=== PATIENT | male | born 1940 | race Caucasian/White ===

== ENCOUNTER 2018-11-11 11:55 | Day surgery (SDC) | payer MEDICARE, OTHER, SELFPAY ==
[2018-11-11] VITALS (7 sets, daily range): BP systolic 109–124; BP diastolic 59–69; PULSE 60–73; RESP 13–20; TEMP 36.2–36.9; O2SAT 97–100; BMI 21.7
[2018-11-11] MEDS: SODIUM CHLORIDE 0.9% 1,000 ML 42 ML IV (13:10)
--- NOTE | 2018-11-11 13:11 | PM.PREOP ---
Pre-operative Note Interval Note History & Physical reviewed/Exam performed by Physician: Yes Changes to H&P: No ASA Class (for procedural sedation): II
--- NOTE | 2018-11-11 13:12 | PM.OP.ENDO ---
Operative Date/Time/Diagnoses Date of procedure: 11/11/18 Time of procedure: 13:12 Pre-op diagnosis: See indication and findings Procedure & Clinicians Indications: Colorectal cancer screening but would need to get through a possible anastomotic stricture. History of colon cancer Surgeon: Jessica Qureshi Procedure Notes Procedure in detail: After informed consent was obtained the patient was placed in left lateral decubitus position. The video colonoscope was introduced into the rectum slowly advanced to the cecum. For details see below. On slow withdrawal mucosa was carefully examined. Preparation was good. The scope was removed. The patient tolerated the procedure well. Blood loss none Complications none Sedation Total sedation time 34 min Versed 5 mg fentanyl 100 mcg IV titration Findings 1. Relative stenosis of the internal anal sphincter dilated digitally and able to pass colonoscope 2. Minimal wesley rectum. There is some difficult angles coming out of the anal canal which was angled forward. One need to then turn posteriorly towards the sacrum and then angle forward again to get through the anastomosis. The anastomosis was mildly strictured. There is no way to get a good angle to either get through with the colonoscope or even passed a balloon over a guidewire. T the adult colonoscope was then removed and the upper endoscope was passed and able to get through the tightly angled and slightly strictured anastomosis. I was then able to pass the upper scope to the hepatic flexure but no further as I was already at the hilt the colonoscope of the scope. 3. No polyp seen throughout the examined colon. Right colon not seen 4. Area of anastomosis dilated from 18 to 10 cm. This was done using a 12-15 mm balloon through the scope. None of the areas that were dilated felt particularly tight with the exception of the most distal area of the anastomosis which was only mildly tight and did not completely let the balloon moved within the lumen. More importantly this area was very tight Alyse angled and this is what capped from advancing the scope. I really do not have too much more to offer Mr. Espinoza endoscopically at this point. We will have to have a nathaly discussion about bowel regimen and trying to keep him hard enough that he does not have incontinence but loose enough that he does not have an obstruction. We will make a return visit with me in the near future in [place] this.
[2018-11-11] MEDS: fentaNYL 250 MCG/5 ML INJ IV (14:19)
[2018-11-11] MEDS: MIDAZOLAM 5 MG/5 ML VIAL IV (14:21)
== END 2018-11-11 15:08 ==
LOC: ENDO 12:02
PROVIDERS: Visit Provider Internal Medicine Gastroenterology
PROC: 0DJD8ZZ Inspection of Lower Intestinal Tract, Via Natural or Artificial Opening Endoscopic (ICD-10-PCS; CPT 45378; principal; 2018-11-11 13:00)
DX: Z85.038 Personal history of other malignant neoplasm of large intestine (principal); K62.4 Stenosis of anus and rectum; R15.9 Full incontinence of feces; E53.8 Deficiency of other specified B group vitamins; G62.9 Polyneuropathy, unspecified; R35.0 Frequency of micturition
CPT/HCPCS: 45386; J2250; J3010

== ENCOUNTER → 2019-05-25 13:09 | Outpatient (CLI) | payer MEDICARE, OTHER, SELFPAY ==
--- NOTE | 2019-05-25 | DI.RAD.S_ITS ---
PROCEDURE: FL BARIUM SWALLOW W SPEECH INDICATIONS: Dysphagia, unspecified TECHNIQUE: Examination was conducted in conjunction with speech pathology per standard protocol. In the lateral projection, filming was performed of the patient swallowing. AP projection filming may also be performed with patient swallowing. COMPARISON: [facility], CT, THORAX WITHOUT CONTRAST, 07/02/2017, 13:15. FINDINGS: Function: There is vallecular pooling. Mild laryngotracheal penetration and aspiration were elicited during examination. No spontaneous cough reflex. Morphology: No cricopharyngeal bar is identified. No cervical esophageal webs. No Zenker's diverticulum. No strictures. IMPRESSION: Mild laryngeal penetration and aspiration. Please see separate speech pathologist's report for detail. Dictated by: Mt Britton M.D. on 05/25/2019 at 15:48 Approved by: Mt Britton M.D. on 05/25/2019 at 15:49
--- NOTE | 2019-05-26 18:42 | ST.SWALLOW ---
Care Team Visit Care Team Role Provider Type Damian Tipton MD Attending Provider Non-Staff Primary Care Provider Specialty: Internal Medicine Address: [address] [place] [address], [place], [address] Email: Modified Barium Swallow Study LIME SLUDGE MIXER Modified Barium Swallow Study Start: 05/25/19 15:59 Freq: Status: Active Protocol: Document 05/25/19 17:49 FERNANDO (Rec: 05/26/19 18:37 [email or web address] [id number]) Modified Barium Swallow Study Total Time Visit Start Time 13:30 Visit Stop Time 14:20 Total Visit Minutes [address] Damian Tipton Reason for Referral Dysphagia Setting Setting Outpatient Care Patient Information Identification Type Name ID Card Patient History Pt is a 78-yr-old male with complaints of frequent (~1x/wk ) sensation of a spasm at his larynx during oral intake and sticking sensation when taking pills. The pt stated he is usually able to manage the laryngospasm by relaxing, after which the spasm clears in 3-4 min. During episodes, however, he finds it difficult to breathe and unable to swallow food. He described an episode this week in which he thought he was going to vomit and did expel clear fluid, which was viscous and bubbly. MBSS was ordered for assessment of swallow function and safety. Per pt report, PMHx significant for pernicious anemia (2014) and colon cancer (1993). Subjective Observations The pt arrived on time and provided case history. He was a thorough historian and fully participatory throughout the evaluation. Patient Positioning Position View Lat-A/P Imaging Lateral View Textures Administered Trials Presented Thin Liquid via Spoon Thin Liquid via Cup [place] Liquid via Spoon [place] Liquid via Cup Honey Liquid via Spoon Dysphagia Blenderized Textures Regular Textures Oral Phase Source: MBSIMP (TM) (C) Bolus Specific Scoring Grid Lip Closure No Impairment (WNL) Tongue Control During Bolus Hold WFL Bolus Prep/Mastication No Impairment (WNL) Bolus Transport/Lingual Motion No Impairment (WNL) A/P Lingual Propulsion Delay No Oral Residue WFL Residue Clearing WFL Nasal Regurgitation No Additional Oral Phase Observations Oral Peripheral Exam: WNL. Pt has natural dentition in good condition for age. All structures were symmetrical and WNl of strength, coordination and ROM. Oral Phase: WNL. Adequate bolus hold, mastication, and a /p transport. Mildly delayed swallow trigger with solids to level of vallecula, not significantly abnormal for age . Pharyngeal Phase Source: MBSIMP (TM) (C) Bolus Specific Scoring Grid Delayed Initiation of Pharyngeal Swallow Yes: To vallecula with solids. WFL with liquids. Soft Palate Elevation No Impairment (WNL) Tongue Base Strength/Range of Motion WFL Residue Along the Tongue Base Yes Clearance of Residue Along Tongue Base WFL Laryngeal Elevation Mild Impairment Anterior Hyoid Movement Severe Impairment Epiglottic Range of Motion Severe Impairment Vallecular Residue Yes Clearance of Vallecular Residue Severe Impairment Laryngeal Vestibular Closure Mild Impairment Pharyngeal Stripping Wave Minimal Impairment Posterior Pharyngeal Wall Residue No Upper Esophageal Sphincter Opening Moderate Impairment Residue in the Pyriform Sinuses Yes Clearance of Residue in the Pyriform Mild Impairment Sinuses Esophageal Clearance Upright Position WFL Pharyngoesophageal Backflow Observed No Additional Pharyngeal Phase Observations Minimal anterior excursion of hyoid resulted in incomplete epiglottic inversion and collection of residue of all substances in the vallecula, including barium tablet. Incomplete UES opening, likely secondary to minimal hyolaryngeal excursion, also contributed to pharyngeal residue. During swallow, the epiglottis initiated inversion but made contact with pharyngeal wall, preventing complete inversion. Residue in vallecula then spilled laterally and, along with residue at pyriform sinuses, entered into the laryngeal vestibule while airway was open and during dry swallows used to attempt to clear this residue. These attempts were largely unsuccessful, with one exception, but did result in penetration and trace aspiration of residue, all of which were silent in nature. Penetration and trace aspiration was also observed during consecutive swallows of thin liquid. Again, no cough response was elicited from the pt. When instructed by LIME SLUDGE MIXER to cough, however, the pt's cough was frequently strong enough to clear residue within the larynx and the proximal trachea. During A/P viewing, a 13mm barium tablet collected in the vallecula and did not clear with extensive liquid wash or with coughing. A/P View Textures Administered Trials Presented Barium Tablet A/P View Observations Residue Observed Valleculae Right Clinical Impressions Dysphagia Type Moderate Pharyngeal Dysphagia Findings Moderate Pharyngeal Dysphagia secondary to impaired hyolaryngeal anterior excursion, resulting in significant pooling of all substances, including 13mm tablet, at vallecula and reduced airway closure. Penetration and trace aspiration, all silent in nature, were observed during consecutive swallows of thin liquid and with pharyngeal residue, both after initial swallows and during dry swallow attempts to clear the vallecula. Multiple attempts at dry swallows were unsuccessful in clearing residue, with exception of one attempt, which cleared the vallecula completely. Once the vallecula was cleared, a 13 mm barium tablet was administered, lodged in vallecula, and did not clear over the remainder of the study. During episodes of penetration and aspiration, the pt was instructed by the LIME SLUDGE MIXER to cough , and his cough was strong enough to clear residue in larynx and proximal trachea. Rehabilitation Potential Good Patient Appropriate for Therapy Yes Recommendations Diet Liquids Order Thin Diet Order Regular Medication Recommendation Crushed in Carrier Aspiration Precautions Recommended Precautions Upright at 90 Degrees Supersupraglottic Swallow Treatment Plan Therapy Recommendations Outpatient Speech Therapy Other Additional Therapy Recommendations Exercises to increase hyolaryngeal elevation/ excursion Compensatory Strategies Recommendations Sitting Upright (90 deg) Supersupraglottic Swallow Short Term Goals 1. The pt will perform exercises to increase hyolaryngeal elevation and anterior excursion to improve epiglottic inversion, airway closure, and opening of UES. 2. The pt will employ compensatory swallow strategies to reduce risk of aspiration. Snf Goals 1. The pt will tolerate regular texture and thin liquids without s/sx of aspiration. Additional Recommendations/Comments Anticipate administration of follow-up MBSS after course of treatment for thorough evaluation and to r/o silent aspiration. Laryngospasm to be addressed in tx, as well.
== END ==
PROVIDERS: PCP Internal Medicine; Visit Provider Internal Medicine
DX: R13.10 Dysphagia, unspecified (principal)
CPT/HCPCS: 74230; 92611

== ENCOUNTER 2019-06-22 13:30 | Outpatient (RCR) | payer MEDICARE, OTHER, SELFPAY ==
--- NOTE | 2019-06-01 17:15 | ST.IPCSEOM ---
Care Team Visit Care Team Role Provider Type Damian Tipton MD Attending Provider Non-Staff Primary Care Provider Specialty: Internal Medicine Address: [address] [place] [address], [place], [address] Email: Current Diagnoses Dysphagia, oropharyngeal phase (06/01/19) Speech-Language Pathology Swallow Evaluation IT APPLICATION SUPPORT ANALYST Clinical Swallow Evaluation Start: 06/01/19 16:42 Freq: Status: Active Protocol: Document 06/01/19 16:48 LNK (Rec: 06/01/19 17:14 LNK [id number]) Clinical Swallow Evaluation Session Time Visit Start Time 14:30 Visit Stop Time 15:30 Total Visit Minutes 60 Visit Information Visit Number 1 Plan of Care Dates 06/01/19-09/01/19 Insurance Information medicare/ for Life Referral Referring Physician Dr. Damian Tipton Reason for Referral aspiration Setting Assessment Location Outpatient Care Visit Type Note Type Initial Evaluation Next Note Type Next Note Type Treatment Note Patient Information Identification Type Name Other History Pt is a 78-yr-old male with complaints of frequent (~1x/wk ) sensation of a spasm at his larynx during oral intake and sticking sensation when taking pills. The pt stated he is usually able to manage the laryngospasm by relaxing, after which the spasm clears in 3-4 min. During episodes, however, he finds it difficult to breathe and unable to swallow food. The results of an MBS was conducted on 05/25/19 indicated Moderate Pharyngeal Dysphagia secondary to impaired hyolaryngeal anterior excursion, resulting in significant pooling of all substances, including 13mm tablet, at vallecula and reduced airway closure. Penetration and trace aspiration, all silent in nature, were observed during consecutive swallows of thin liquid and with pharyngeal residue, both after initial swallows and during dry swallow attempts to clear the vallecula. Subjective Observations pt arrived for appointment on time Evaluation Pharyngeal Impairment Moderately Impaired Pharyngeal Strategies Effortful Swallow Mendelsonn Maneuver Findings Rehabilitation Potential Excellent Impressions The pt and this IT APPLICATION SUPPORT ANALYST reviewed the video of his MBS and discussed the areas of concern . Noted specifically is the reduced laryngeal protection as a result of no inversion of the epiglottis.. Additionally, reduced contraction of the pharyngeal wall and lack of pharyngeal stripping are noted, limiting control of the bolus. Trace penetration and aspiration moments were shown to the pt with noting the position of the epiglottis relative to poor forward movement of the hyoid bone. Pharyngeal exercises were described and provided to the pt. Written instructions and demonstration of three exercises were provided, with pt performance of each with all questions answered. A follow up appointment in 3 weeks was discussed and scheduled. the exercises included the Mussako , the Chay and the strong sucking exercise (i.e., milk shake drink). Diet Recommendations Liquids Order Thin Diet Order Regular Medication Recommendations Whole in Carrier Crushed in Carrier One at a Time Treatment Plan Dysphagia Goals The pt will complete HEP as described daily. 50-100 repetitions of each exercise will be performed. the goal of therapy exercises is to improve hyolaryngeal elevation and forward motion, improve the posterior pharyngeal wall contraction and to increase strength of hyolaryngeal muscles.
--- NOTE | 2019-06-22 14:25 | ST.IPDYTX ---
Care Team Visit Care Team Role Provider Type Damian Tipton MD Attending Provider Non-Staff Primary Care Provider Specialty: Internal Medicine Address: [address] [place] [address], [place], [address] Email: INVESTMENT ACCOUNTING CLERK Dysphagia Treatment INVESTMENT ACCOUNTING CLERK Dysphagia Treatment Start: 06/01/19 16:42 Freq: Status: Active Protocol: Document 06/22/19 14:12 LNK (Rec: 06/22/19 14:24 LNK [email or web address]) Dysphagia Treatment Session Time Visit Start Time 13:30 Visit Stop Time 14:10 Total Visit Minutes 40 Visit Information Visit Number 2 Plan of Care Dates 06/01/19-09/01/19 Insurance Information medicare/ for Life Visit Type Note Type Treatment Note Patient Information Subjective Observations Pt arrived on time for his appointment. He reported hat he feels his swallowing has improved. He noted that he rarely has difficulty with swallowing pills and he has not experienced the throat spasm he reported prior to therapy. Treatment Liquids Trialed Thin Solids Trialed Regular Administration Type Self-Feeding Additional Dysphagia Treatment Musako, Mendelsohnn exercises Strategies daily with multiple repetitions (50-100/ Treatment Activities Reviewed with the pt the exercises he has been performing at home. He reports multiple repetitions, and positive outcome: no observed throat spasms, and rarely do pills get stuck any more. Introduced Shaker exercise to replace the Mendelsohnn for laryngeal elevation and strengthening. pt practiced the exercise in completion during the session and was provided with written description and detailed instructions. Pt agreed to return to this clinic in 4 weeks for follow-up. Assessment Patient Response to Treatment Excellent Rehab Potential Excellent Diet Recommendations Recommendations Continue Current Diet Treatment Plan Appropriate for Continued Therapy Yes: Follow up 1x more Therapy Recommendations Continue POC with Musako and Shaker exercises as instructed daily. Dysphagia Goals The pt will complete HEP as described daily. Repetitions of each exercise will be performed as instructed. The goal of therapy exercises is to improve hyolaryngeal elevation and forward motion, improve the posterior pharyngeal wall contraction and to increase strength of hyolaryngeal muscles.
--- NOTE | 2019-08-16 10:26 | ST.IPDYTX ---
Visit Care Team Role Provider Type Damian Tipton MD Attending Provider Non-Staff Primary Care Provider Specialty: Internal Medicine Address: [address] [place] [address], [place], [address] Email: SOFTWARE CONTROLS ENGINEER Dysphagia Treatment SOFTWARE CONTROLS ENGINEER Dysphagia Treatment Start: 06/01/19 16:42 Freq: Status: Active Protocol: Document 08/16/19 10:21 LNK (Rec: 08/16/19 10:23 LNK [email or web address]) Dysphagia Treatment Visit Type Note Type Discharge Summary Treatment Treatment Activities Pt was last seen for dysphagia therapy on 06/22/19. He has no futrre appointments. Will discharge pt at this time. Treatment Plan Appropriate for Continued Therapy No: Discharge
== END 2019-08-25 16:34 ==
LOC: SP 13:30
PROVIDERS: PCP Internal Medicine; Visit Provider Internal Medicine
DX: R13.12 Dysphagia, oropharyngeal phase (principal)
CPT/HCPCS: 92526; 92610

== ENCOUNTER 2019-07-20 14:41 | Inpatient (IN) | payer MEDICARE, OTHER, SELFPAY ==
[2019-07-20 14:42] VITALS: BP 111/69; PULSE 113; RESP 15; TEMP 37.5; O2SAT 95; BMI 20.7
--- NOTE | 2019-07-20 14:56 | ED_ITS ---
HPI - Nausea/Vomiting/Diarrhea General Chief complaint: Nausea/Vomiting/Diarrhea Stated complaint: BLOCKED UP VOMITING Time Seen by Provider: 07/20/19 14:50 Source: patient Mode of arrival: Wheelchair Limitations: no limitations History of Present Illness HPI Narrative: Patient is a 78-year-old male with history of colon cancer is in the , presenting with 5 days of nausea and vomiting. He says that he tries to drink some fluid it does not actually come up but caught him intense pain in his stomach. He feels dizzy and lightheaded every time he stands up. He denies any syncopal episode no heart palpitations. He currently is not having abdominal pain. He had his 1st formed normal bowel movement in 5 days. He has had some mucousy like stuff for the last 5 days but no significant diarrhea. He denies any travel or antibiotic use. He denies any chest pain or shortness of breath. MD complaint: nausea, vomiting and abdominal pain Onset (ago): day(s) (5) Description of Diarrhea: mucousy Associated Abdominal Pain: Yes Location of pain: diffuse Severity: moderate Quality: cramping Pain Consistency: now resolved Related Data Home Medications Medication Instructions Recorded Confirmed mirabegron [Myrbetriq] 50 mg PO DAILY 11/11/18 07/20/19 tamsulosin 0.4 mg PO DAILY 11/11/18 07/20/19 cyanocobalamin (vitamin B-12) 1,000 mcg IM QMONTH 07/20/19 07/20/19 Allergies Allergy/AdvReac Type Severity Reaction Status Date / Time No Known Drug Allergies Allergy Verified 07/20/19 14:49 Review of Systems Review of Systems ROS Unobtainable: All systems reviewed & are unremarkable except as noted in HPI and below PFSH Social History household members: spouse Smoking Status: Unknown if ever smoked Social History household members: spouse Smoking Status: Unknown if ever smoked Exam Initial Vital Signs Initial Vital Signs: Vital Signs Temperature 99.5 F 07/20/19 14:42 Pulse Rate 113 H 07/20/19 14:42 Respiratory Rate 15 07/20/19 14:42 Blood Pressure 111/69 07/20/19 14:42 Pulse Oximetry 95 07/20/19 14:42 GENERAL: Thin frail chronically ill-appearing male and in no acute distress. HEENT: Head atraumatic,EOMI, pupils reactive, face symmetric, significantly dry mucous membranes CARDIOVASCULAR: Regular rate and rhythm without murmurs, rubs or gallops. RESPIRATORY: Breath sounds equal bilaterally, no wheezes rales or rhonchi. ABDOMEN: Soft, minimally tender no significant distension is no guarding or rebound EXTREMITIES: Normal range of motion, no clubbing or edema. Neurovascularly intact NEUROLOGICAL: Alert and oriented x4.Normal gait and speech. SKIN: Warm, dry, no laceration, no petechiae, no rashes or lesions. Course Orders Ordered: ED Orders 07/20/19 14:50 CBC Auto Diff [Complete Blood Count AUTO DIFF] Stat CMP [Comprehensive Metabolic Panel] Stat Lipase Stat 07/20/19 15:08 CT abdomen pelvis w con Stat 07/20/19 15:25 Lactate (Lactic Acid) Stat 07/20/19 15:45 EKG-12 Lead Stat Discontinued Medications Sodium Chloride (Normal Saline 0.9%) 1,000 mls @ 1,000 mls/hr IV BOLUS ONE Stop: 07/20/19 16:14 Last Infusion: 07/20/19 18:09 Dose: 0 mls/hr Documented by: Admin: 07/20/19 15:19 Dose: 1,000 mls/hr Documented by: CHELY Sodium Chloride (Normal Saline 0.9%) 1,000 mls @ 1,000 mls/hr IV BOLUS ONE Stop: 07/20/19 16:14 Last Infusion: 07/20/19 18:10 Dose: 0 mls/hr Documented by: Admin: 07/20/19 15:19 Dose: 1,000 mls/hr Documented by: CHELY Ondansetron HCl (Zofran) 4 mg IV NOW ONE Stop: 07/20/19 15:09 Last Admin: 07/20/19 15:19 Dose: 4 mg Documented by: CHELY Pantoprazole Sodium (Protonix) 40 mg IV NOW ONE Stop: 07/20/19 15:09 Last Admin: 07/20/19 15:19 Dose: 40 mg Documented by: CHELY Vital Signs Vital signs: Vital Signs - 8 hr 07/20/19 14:42 07/20/19 16:33 07/20/19 17:00 Temperature 99.5 F Pulse Rate 113 H 86 88 Respiratory Rate 15 22 22 Blood Pressure 111/69 Blood Pressure [Left Arm] 126/52 L 116/60 Pulse Oximetry 95 95 97 MDM - Nausea/Vomiting/Diarrhea Lab Data Attestation: I reviewed the patient's lab results. Result diagrams: 07/20/19 14:50 07/20/19 14:50 Labs: Lab Results 07/20/19 07/20/19 07/20/19 Range/Units 14:50 14:50 14:50 WBC 9.4 (4.5-11.0) X10^3/uL RBC 4.65 (4.5-5.9) X10^6/uL Hgb 15.1 (13.5-17.5) g/dL Hct 44.8 (41-53) % MCV 96.3 (80-100) fL MCH 32.4 (26-34) PG MCHC 33.7 (30-36) % RDW 13.3 (11.6-14.8) % Plt Count 244 (150-400) X10^3/uL Neut % (Auto) 87.8 H (50-75) % Lymph % (Auto) 6.9 L (25-40) % [place] % (Auto) 4.6 (3-14) % Eos % (Auto) 0.1 L (2-4) % Baso % (Auto) 0.6 (0-2) % Neut # (Auto) 8200 H (3807-9978) /uL Lymph # (Auto) 600 L (0509-2928) /uL [place] # (Auto) 400 (0-900) /uL Eos # (Auto) 0 (0-450) /uL Baso # (Auto) 100 (0-100) /uL Sodium 137 (137-145) mmol/L Potassium 3.7 (3.4-5.1) mmol/L Chloride 93 L (98-107) mmol/L Carbon Dioxide 25 (22-32) mmol/L BUN 32 H (9-20) mg/dL Creatinine 1.20 (0.66-1.25) mg/dL Estimated GFR 58.4 L (>60) mL/min BUN/Creatinine Ratio 26.7 H (6-22) Glucose 106 (80-110) mg/dL Lactate (0.7-2.1) mmol/L Calcium 9.7 (8.4-10.2) mg/dL Total Bilirubin 1.7 H (0.2-1.3) mg/dL AST 29 (17-59) IU/L ALT 20 L (21-72) IU/L Alkaline Phosphatase 66 (38-126) U/L Total Protein 7.1 (6.3-8.2) g/dL Albumin 4.3 (3.5-5.0) g/dL Globulin 2.8 (1.7-4.1) g/dL Albumin/Globulin Ratio 1.5 (1.0-2.8) Lipase 47 (23-300) U/L 07/20/19 Range/Units 15:25 WBC (4.5-11.0) X10^3/uL RBC (4.5-5.9) X10^6/uL Hgb (13.5-17.5) g/dL Hct (41-53) % MCV (80-100) fL MCH (26-34) PG MCHC (30-36) % RDW (11.6-14.8) % Plt Count (150-400) X10^3/uL Neut % (Auto) (50-75) % Lymph % (Auto) (25-40) % [place] % (Auto) (3-14) % Eos % (Auto) (2-4) % Baso % (Auto) (0-2) % Neut # (Auto) (7324-6280) /uL Lymph # (Auto) (5324-6255) /uL [place] # (Auto) (0-900) /uL Eos # (Auto) (0-450) /uL Baso # (Auto) (0-100) /uL Sodium (137-145) mmol/L Potassium (3.4-5.1) mmol/L Chloride (98-107) mmol/L Carbon Dioxide (22-32) mmol/L BUN (9-20) mg/dL Creatinine (0.66-1.25) mg/dL Estimated GFR (>60) mL/min BUN/Creatinine Ratio (6-22) Glucose (80-110) mg/dL Lactate 1.1 (0.7-2.1) mmol/L Calcium (8.4-10.2) mg/dL Total Bilirubin (0.2-1.3) mg/dL AST (17-59) IU/L ALT (21-72) IU/L Alkaline Phosphatase (38-126) U/L Total Protein (6.3-8.2) g/dL Albumin (3.5-5.0) g/dL Globulin (1.7-4.1) g/dL Albumin/Globulin Ratio (1.0-2.8) Lipase (23-300) U/L Imaging Data CT scan - abdomen: Radiologist's impression: PROCEDURE: CT ABDOMEN PELVIS W CON INDICATIONS: vomiting pain hx colon ca TECHNIQUE: After the administration of oral and intravenous contrast, 5 mm thick sections acquired from the diaphragms to the symphysis. 5 mm thick coronal and sagittal reformats were performed. For radiation dose reduction, the following was used: automated exposure control, adjustment of mA and/or kV according to patient size. COMPARISON: [facility], CT, IVP (ABD & PEL WWO CONTRAST), 06/21/2016, 10:16. FINDINGS: Image quality: Diagnostic. ABDOMEN: Lung bases: Moderate area of consolidation is evident within the left lower lobe. Decreased enhancement of this consolidated lung is noted. Heart size is normal. Solid organs: There is intrahepatic and extrahepatic biliary dilatation. The common bile duct measures up to approximately 8 mm in diameter. The gallbladder is gillian rderline prominent in size. No definite gallbladder wall thickening is evident. No definite liver lesions are appreciated. The portal vein is patent. The spleen is unremarkable. There is a single calcification evident within the left adrenal gland, which is unchanged since 2016, probably related to previous trauma or infection. The kidneys are normal in size without hydronephrosis or renal calculi. Imaged portions of the pancreas are grossly unremarkable. Peritoneum and bowel: The stomach is unremarkable. Numerous dilated small bowel loops are present throughout the abdomen with the more distal small bowel loops noted to be decompressed. A few areas of wall thickening involving the small bowel are present. There is a focal transition point identified within the mid abdomen (image 28, series 4). The small bowel loops beyond this level are significantly decompressed. A moderate to large amount of residual stool is identified throughout the colon. No free fluid, loculated fluid collection or free air is appreciated within the abdomen. A heterogeneous rounded structure containing central air is located within one of the most prominently dilated small bowel loops within the pelvis, which appears to be free-floating and does not appear to be contiguous with the adjacent small bowel wall (image 34, series 5 and image 72, series 2). Nodes and vessels: No retroperitoneal or mesenteric adenopathy. Aorta and inferior vena cava are normal in caliber. Aortic atherosclerosis is present. Bones: No acute fracture or suspicious osseous lesion is present. PELVIS: Genitourinary: Bladder wall thickness is normal. The prostate is not enlarged. Miscellaneous: No inguinal hernias or adenopathy. Bones: No suspicious bony lesions. No acute pelvic fractures are evident. IMPRESSION: 1. Small bowel obstruction with transition point likely within the mid ileum probably is related to adhesions. However, a focal small bowel mass or lesion cannot be completely excluded. 2. Probable constipation. 3. No evidence of bowel perforation. 4. Mild intrahepatic and extrahepatic biliary dilatation. Clinical correlation with liver function tests is recommended. If the patient's LFTs are persistently elevated or increasing, please consider MRCP for further evaluation. 5. Left lower lobe pneumonia versus aspiration. Dictated by: Jacob Fontana M.D. on 07/20/2019 at 15:05 ECG Data Attestation: I personally reviewed and interpreted this ECG as follows: Prior ECG tracings: not available for review Interpretation: Normal sinus rhythm rate 85 p.r. interval 180 QRS [address] changes no T-wave inversions MDM Narrative Medical decision making narrative: Patient's CT does show small bowel obstruction with transition point. NG was attempted by nursing staff but failed multiple times. He did not want Zofran he did not require any pain medication no further vomiting in the emergency department. Dr. Kennedy updated on pain she has symptoms test results agrees with admission. Discharge Plan Departure Patient Disposition: Admitted As Inpatient Clinical Impression: Small bowel obstruction Discharge Date/Time: 07/20/19 18:17 Admit Date/Time: 07/20/19 17:27 Admit Provider: Scooby Kennedy
[2019-07-20 15:03] LABS: Add Manual Diff / Slide Review NO; Basophils Absolute Auto 100 /uL (0-100); Basophils Percent Auto 0.6 % (0-2); Eosinophils Absolute Auto 0 /uL (0-450); Eosinophils Percent Auto 0.1 % (2-4); Hematocrit 44.8 % (41-53); Hemoglobin 15.1 g/dL (13.5-17.5); Lymphocytes Absolute Auto 600 /uL (1100-4500); Lymphocytes Percent Auto 6.9 % (25-40); Mean Corpuscular HGB Conc 33.7 % (30-36); Mean Corpuscular Hemoglobin 32.4 PG (26-34); Mean Corpuscular Volume 96.3 fL (80-100); Monocytes Absolute Auto 400 /uL (0-900); Monocytes Percent Auto 4.6 % (3-14); Neutrophils Absolute Auto 8200 /uL (1500-7000); Neutrophils Percent Auto 87.8 % (50-75); Platelet Count 244 X10^3/uL (150-400); Red Blood Cell Count 4.65 X10^6/uL (4.5-5.9); Red Cell Distribution Width 13.3 % (11.6-14.8); White Blood Cell Count 9.4 X10^3/uL (4.5-11.0)
--- NOTE | 2019-07-20 15:08 | DI.CT.S_ITS ---
PROCEDURE: CT ABDOMEN PELVIS W CON INDICATIONS: vomiting pain hx colon ca TECHNIQUE: After the administration of oral and intravenous contrast, 5 mm thick sections acquired from the diaphragms to the symphysis. 5 mm thick coronal and sagittal reformats were performed. For radiation dose reduction, the following was used: automated exposure control, adjustment of mA and/or kV according to patient size. COMPARISON: [facility], CT, IVP (ABD & PEL WWO CONTRAST), 06/21/2016, 10:16. FINDINGS: Image quality: Diagnostic. ABDOMEN: Lung bases: Moderate area of consolidation is evident within the left lower lobe. Decreased enhancement of this consolidated lung is noted. Heart size is normal. Solid organs: There is intrahepatic and extrahepatic biliary dilatation. The common bile duct measures up to approximately 8 mm in diameter. The gallbladder is borderline prominent in size. No definite gallbladder wall thickening is evident. No definite liver lesions are appreciated. The portal vein is patent. The spleen is unremarkable. There is a single calcification evident within the left adrenal gland, which is unchanged since 2016, probably related to previous trauma or infection. The kidneys are normal in size without hydronephrosis or renal calculi. Imaged portions of the pancreas are grossly unremarkable. Peritoneum and bowel: The stomach is unremarkable. Numerous dilated small bowel loops are present throughout the abdomen with the more distal small bowel loops noted to be decompressed. A few areas of wall thickening involving the small bowel are present. There is a focal transition point identified within the mid abdomen (image 28, series 4). The small bowel loops beyond this level are significantly decompressed. A moderate to large amount of residual stool is identified throughout the colon. No free fluid, loculated fluid collection or free air is appreciated within the abdomen. A heterogeneous rounded structure containing central air is located within one of the most prominently dilated small bowel loops within the pelvis, which appears to be free-floating and does not appear to be contiguous with the adjacent small bowel wall (image 34, series 5 and image 72, series 2). Nodes and vessels: No retroperitoneal or mesenteric adenopathy. Aorta and inferior vena cava are normal in caliber. Aortic atherosclerosis is present. Bones: No acute fracture or suspicious osseous lesion is present. PELVIS: Genitourinary: Bladder wall thickness is normal. The prostate is not enlarged. Miscellaneous: No inguinal hernias or adenopathy. Bones: No suspicious bony lesions. No acute pelvic fractures are evident. IMPRESSION: 1. Small bowel obstruction with transition point likely within the mid ileum probably is related to adhesions. However, a focal small bowel mass or lesion cannot be completely excluded. 2. Probable constipation. 3. No evidence of bowel perforation. 4. Mild intrahepatic and extrahepatic biliary dilatation. Clinical correlation with liver function tests is recommended. If the patient's LFTs are persistently elevated or increasing, please consider MRCP for further evaluation. 5. Left lower lobe pneumonia versus aspiration. Dictated by: Jacob Fontana M.D. on 07/20/2019 at 15:05 Approved by: Jacob Fontana M.D. on 07/20/2019 at 15:11
[2019-07-20 15:11] LABS: Alanine Aminotransferase 20 IU/L (21-72); Albumin 4.3 g/dL (3.5-5.0); Albumin Globulin Ratio 1.5 (1.0-2.8); Alkaline Phosphatase 66 U/L (38-126); Aspartate Aminotransferase 29 IU/L (17-59); BUN Creatinine Ratio 26.7 (6-22); Bilirubin Total 1.7 mg/dL (0.2-1.3); Blood Urea Nitrogen 32 mg/dL (9-20); Calcium 9.7 mg/dL (8.4-10.2); Carbon Dioxide 25 mmol/L (22-32); Chloride 93 mmol/L (98-107); Estimated Glomerular Filt Rate 58.4 mL/min (>60); Globulin 2.8 g/dL (1.7-4.1); Glucose 106 mg/dL (80-110); HEMOLYSIS < 15 (0-50); Potassium 3.7 mmol/L (3.4-5.1); Sodium 137 mmol/L (137-145); Total Protein 7.1 g/dL (6.3-8.2)
[2019-07-20] MEDS: ONDANSETRON 4 MG/2 ML INJ IV (15:19)
[2019-07-20] MEDS: SODIUM CHLORIDE 0.9% 1,000 ML 1000 ML IV ×2 (15:19)
[2019-07-20] MEDS: PANTOPRAZOLE 40 MG VIAL IV (15:19)
[2019-07-20 15:39] LABS: Lipase 47 U/L (23-300)
[2019-07-20 15:42] LABS: Lactate (Lactic Acid) 1.1 mmol/L (0.7-2.1)
[2019-07-20 16:33] VITALS: BP 126/52; PULSE 86; RESP 22; O2SAT 95
[2019-07-20 17:00] VITALS: BP 116/60; PULSE 88; RESP 22; O2SAT 97
--- NOTE | 2019-07-20 18:16 | PC.NURSE ---
ng attempt x 4, dannie well, but ng kept coiling in throat/ md aware not able to place ng
[2019-07-20 18:35] VITALS: BP 98/59; PULSE 84; RESP 14; TEMP 36.2; O2SAT 94; BMI 20.7
[2019-07-20] MEDS: SODIUM CHLORIDE 0.9% 1,000 ML 125 ML IV (19:58)
--- NOTE | 2019-07-20 20:26 | PC.NURSE ---
Addendum entered by Mary Wagner R.N. 07/20/19 23:03: Original Note: 1835-Pt arrived to room 216 from ED via bed. A/O x4, BP-98/59, HR 84, pt reportrs baseline is usually SBP runs in the 100's, pt received 2L NS in ED. RFA NS @ 125 infusing. Pt denies N/V at this time, but had to episodes of vomiting at home prior to coming into ED. Also pt reports having a couple episodes of mucus type diarrhea then small to med formed BM this afternoon, also prior to coming in to ED. NPO status, provided with mouth moisture/lip balm and toothettes. ED tried multiple times with 14-16-and 18fr NGT, but unsuccessful, pt reports not willing to have this nurse try to place NGT at this time, nor night nurse, possible, in morning is must be done. Pt willing to drink gastograf for sbo follow through in morning instead of NGT placement. SBA to BRP to void x1. Pt has ABD scar from surgery r/t colon CA in 1993. Denies any pain or headache. CBG Q-6hr r/t NPO. 94% RA LS clear. Call light in reach and bed alarm on for safety.
[2019-07-20 23:50] VITALS: BP 107/50; PULSE 74; RESP 16; TEMP 37.1; O2SAT 97
[2019-07-21] VITALS (9 sets, daily range): BP systolic 96–121; BP diastolic 49–85; PULSE 67–88; RESP 15–20; TEMP 36.8–37.1; O2SAT 82–98
--- NOTE | 2019-07-21 | DI.RAD.S_ITS ---
PROCEDURE: FL SMALL BOWEL FOLLOW THROUGH INDICATIONS: Small bowel follow through perform with Gastrografin via NGT COMPARISON: [facility], CT, CT ABDOMEN PELVIS W CON, 07/20/2019, 15:23. FINDINGS: Gastrografin was instilled via enteric tube. There is contrast material extending to the lower pelvis although this could be within small bowel rather than colon. Dilated appearance of multiple small bowel loops probably unchanged since comparison CT dated 07/20/19 although limited comparison given differences in imaging modality. Distention of the stomach IMPRESSION: Multiple dilated small bowel loops as above, probably unchanged since 07/20/19. Dictated by: Elver Mccoy M.D. on 07/23/2019 at 10:38 Approved by: Elver Mccoy M.D. on 07/23/2019 at 10:42
--- NOTE | 2019-07-21 00:58 | PC.NURSE ---
Unindentured Apprentice Note: 0040: Awake, resting in bed. Vital signs stable. Pt denies abdominal pain. Abdomen is non-distended, with hypoactive bowel tones. IV in place in rt forearm, with NS infusing at 125cc/hr. Assisted up to bathroom, voided in toilet. Small piece of cui colored material, possibly tissue, found floating in urine hat, no blood or drainage with it. Pt unsure if this passed from his rectum or from his penis.
--- NOTE | 2019-07-21 02:13 | P.HP_ITS ---
History of Present Illness History of Present Illness Date Patient Seen: 07/21/19 Time Patient Seen: 10:10 Chief complaint: BLOCKED UP VOMITING Narrative: A 78-year-old male with a previous low anterior resection for rectal cancer presents with a small-bowel obstruction. He felt abdominal distension associated with some nausea and emesis yesterday and presented to the emergency room. He underwent a CT that shows a small-bowel obstruction with possible transition point in the mid abdomen. And he was afebrile without leukocytosis or peritonitis. Multiple attempts were made to place the NG tube which was unsuccessful. His nausea is significantly improved and he is having some small bowel movements no flatus and has had no episodes of emesis since admission. No previous history of small-bowel obstruction. Surgical history is notable only for low anterior resection through a midline laparotomy. Patient History Medical History Colon cancer (Acute) Social History household members: spouse Smoking Status: Unknown if ever smoked Family & Social History Social History: household members spouse Prior Living Arrangements House Safety & Behavioral: Feels Safe in Current Yes Environment Been Physically Hurt or No Threatened By a Person Suicidal Ideation Description None Suicide Plan Description No Plan Tobacco & Substance use: Smoking Status Unknown if ever smoked alcohol intake frequency holiday/special occasion Substance Use Type does not use Meds Home Medications and Allergies Home Medications Medication Instructions Recorded Confirmed Type mirabegron [Myrbetriq] 50 mg PO DAILY 11/11/18 07/20/19 History tamsulosin 0.4 mg PO DAILY 11/11/18 07/20/19 History cyanocobalamin (vitamin B-12) 1,000 mcg IM QMONTH 07/20/19 07/20/19 History Allergies Allergy/AdvReac Type Severity Reaction Status Date / Time No Known Drug Allergies Allergy Verified 07/20/19 14:49 Review of Systems Review of Systems ROS Unobtainable: All systems reviewed & are unremarkable except as noted in HPI and below Exam Vital Signs (past 8 hours): - 07/20/19 18:35 07/20/19 23:50 Temperature 97.1 F L 98.7 F Pulse Rate 84 74 Respiratory Rate 14 16 Blood Pressure 98/59 L 107/50 L Pulse Oximetry 94 97 Oxygen Delivery Method Room Air Narrative Exam Narrative: General-adult male no acute distress, well nourished HEENT-moist mucous membranes, no scleral icterus Neck-supple with full range of motion, no lymphadenopathy Chest- no labored respirations, clear to auscultation bilaterally Cardiac-regular rate and rhythm Abdomen-soft, mildly distended, no peritonitis Extremities-no edema, warm well perfused Neurological-alert and oriented x 3. No focal deficits Skin-normal temperature and turgor, no rashes or ulcers Objective Labs Result Diagrams: 07/21/19 07:51 07/21/19 07:51 Labs: Laboratory Results - last 24 hr 07/20/19 07/20/19 07/20/19 14:50 14:50 14:50 WBC 9.4 RBC 4.65 Hgb 15.1 Hct 44.8 MCV 96.3 MCH 32.4 MCHC 33.7 RDW 13.3 Plt Count 244 Neut % (Auto) 87.8 H Lymph % (Auto) 6.9 L [place] % (Auto) 4.6 Eos % (Auto) 0.1 L Baso % (Auto) 0.6 Neut # (Auto) 8200 H Lymph # (Auto) 600 L [place] # (Auto) 400 Eos # (Auto) 0 Baso # (Auto) 100 Sodium 137 Potassium 3.7 Chloride 93 L Carbon Dioxide 25 BUN 32 H Creatinine 1.20 Estimated GFR 58.4 L BUN/Creatinine Ratio 26.7 H Glucose 106 Lactate Calcium 9.7 Total Bilirubin 1.7 H AST 29 ALT 20 L Alkaline Phosphatase 66 Total Protein 7.1 Albumin 4.3 Globulin 2.8 Albumin/Globulin Ratio 1.5 Lipase 47 07/20/19 15:25 WBC RBC Hgb Hct MCV MCH MCHC RDW Plt Count Neut % (Auto) Lymph % (Auto) [place] % (Auto) Eos % (Auto) Baso % (Auto) Neut # (Auto) Lymph # (Auto) [place] # (Auto) Eos # (Auto) Baso # (Auto) Sodium Potassium Chloride Carbon Dioxide BUN Creatinine Estimated GFR BUN/Creatinine Ratio Glucose Lactate 1.1 Calcium Total Bilirubin AST ALT Alkaline Phosphatase Total Protein Albumin Globulin Albumin/Globulin Ratio Lipase Assessment & Plan Assessment and plan (1) Small bowel obstruction: Current visit: Yes Status: Acute Assessment & Plan narrative: 78-year-old male with previous colon resection for colonic adenocarcinoma 1990s presents with a small-bowel obstruction. No fever leukocytosis or peritonitis. Multiple attempts to place NGT unsuccessful currently without nausea or emesis since admission having small bowel movements. CT A/P -dilated small bowel with a transition point in the mid abdomen no free fluid or air. Small-bowel follow-through with Gastrografin ordered. If the contrast is unable to transit to the colon an exploratory laparotomy with lysis of adhesions is indicated. I discussed this with the patient his questions have been answered and he is in agreement with this plan -NPO/IVF If emesis needs NGT -SBFT with gastrografin -pLovenox for VTE prophylaxis Quality VTE Deep Vein Thrombosis/Pulmonary Embolism Present on Admission: No
[2019-07-21] MEDS: DEXTROSE 5%-0.9% NS 1,000 ML 100 ML IV ×2 (04:09→13:55)
[2019-07-21 08:10] LABS: Add Manual Diff / Slide Review NO; Basophils Absolute Auto 0 /uL (0-100); Basophils Percent Auto 0.3 % (0-2); Eosinophils Absolute Auto 0 /uL (0-450); Eosinophils Percent Auto 0.3 % (2-4); Hematocrit 33.8 % (41-53); Hemoglobin 11.3 g/dL (13.5-17.5); Lymphocytes Absolute Auto 900 /uL (1100-4500); Lymphocytes Percent Auto 9.3 % (25-40); Mean Corpuscular HGB Conc 33.4 % (30-36); Mean Corpuscular Hemoglobin 32.4 PG (26-34); Monocytes Absolute Auto 600 /uL (0-900); Monocytes Percent Auto 5.8 % (3-14); Neutrophils Absolute Auto 8200 /uL (1500-7000); Neutrophils Percent Auto 84.3 % (50-75); Platelet Count 167 X10^3/uL (150-400); Red Blood Cell Count 3.48 X10^6/uL (4.5-5.9); Red Cell Distribution Width 13.7 % (11.6-14.8); White Blood Cell Count 9.7 X10^3/uL (4.5-11.0)
[2019-07-21 08:27] LABS: Blood Urea Nitrogen 26 mg/dL (9-20); Calcium 8.1 mg/dL (8.4-10.2); Carbon Dioxide 30 mmol/L (22-32); Chloride 102 mmol/L (98-107); Estimated Glomerular Filt Rate > 60.0 mL/min (>60); Glucose 105 mg/dL (80-110); HEMOLYSIS < 15 (0-50); Magnesium 1.9 mg/dL (1.6-2.3); Phosphorous 2.8 mg/dL (2.3-3.7); Potassium 3.5 mmol/L (3.4-5.1); Sodium 137 mmol/L (137-145)
[2019-07-21] MEDS: ENOXAPARIN 40 MG/0.4 ML SYRINGE SUBCUT (08:52)
--- NOTE | 2019-07-21 11:26 | PC.NURSE ---
Pt apparently had an episode of aspiration while trying to drink some fluids.. called and would like us to put an NG tube down patient, Pt is refusing unless he gets some kind of light sedation. ordered 1mg of versed but he has to be present in order for us to give this. We are awaiting surgeons arrival to help with NG tube placement. Pt is up to bathroom on his own. He states that he has been having some small bowel movements. Abdomen is slightly distended and bt are hypoactive x4.
--- NOTE | 2019-07-21 16:52 | PC.NURSE ---
Addendum entered by Mary Wagner R.N. 07/21/19 22:45: Pt declined to authorize placement of NGT as of now, stated we'll try in the morning. Addendum entered by Mary Wagner R.N. 07/21/19 22:43: 2245- new orders for Zosyn and solu-cortef NOW, and Transfer to ICU. Addendum entered by Mary Wagner R.N. 07/21/19 21:56: CXR reveals aspiration. Awaiting orders. Addendum entered by Mary Wagner R.N. 07/21/19 21:48: Pt now on 50L heated high flow NC at 100% for 94% O2. Called Dr Wellington, new orders for upright chest x ray STAT Addendum entered by Mary Wagner R.N. 07/21/19 19:59: Pt placed on 10L high flow nc, then 15L for 90%. Addendum entered by Mary Wagner R.N. 07/21/19 19:50: 1935- called RT, pt desating to high 80's, placed on O2 2L, up to 6L without any improvement. awaiting RT Addendum entered by Mary Wagner R.N. 07/21/19 19:29: 1915- 200 emesis clear yellow liquid. New orders from Dr Wellington for scopolamine patch NOW. Addendum entered by Mary Wagner R.N. 07/21/19 18:55: 1900- Pt reports feeling very uncomfortable and requests 1 mg morphine. Pt aware of morphine 2mg IVP, but only requests 1mg. medicated with 1mg morphine IVP. Addendum entered by Mary Wagner R.N. 07/21/19 18:52: 1815- Pt reports nausea, feel like vomiting. medicated with zofran 4mg IVP. Original Note: Pt recieving gastrografin and imaging up to room continually for images of small bowel follow through. Pt ambulating in hallway, SBA FWW. BT hypo, denies nausea, sm BM and reports had two sm BM's this AM. Hypotensive and this is baseline. 98%RA, LS clear denies SOB. RFA D5 1/2 NS @ 100. Call light in reach.
[2019-07-21] MEDS: MORPHINE 2 MG/ML INJ IV (19:00)
[2019-07-21] MEDS: SCOPOLAMINE 1 PATCH TOP (19:45)
--- NOTE | 2019-07-21 21:45 | DI.RAD.S_ITS ---
PROCEDURE: XR CHEST 1V INDICATIONS: trouble breathing, recent vomiting TECHNIQUE: One view of the chest was acquired. COMPARISON: None. FINDINGS: Surgical changes and devices: None. Lungs and pleura: Multifocal patchy alveolar opacities in the right midlung, infrahilar region and left retrocardiac region. Findings are superimposed on the hyperlucent lungs No pleural effusions or pneumothorax. Mediastinum: Mediastinal contours appear normal. Heart size is normal. Bones and chest wall: No suspicious bony lesions. The stomach and left upper quadrant is distended with oral contrast IMPRESSION: 1. Patchy dense alveolar opacities in the right mid and bilateral lower lungs. Given recent vomiting, aspiration pneumonia may be present, alternatively, infectious or inflammatory processes may be present. 2. Distended stomach filled with oral contrast. Patient may benefit from a nasogastric tube. Dictated by: Ines Jane M.D. on 07/21/2019 at 22:08 Approved by: Ines Jane M.D. on 07/21/2019 at 22:11
--- NOTE | 2019-07-21 22:13 | P.PN_ITS ---
Subjective Subjective Date Patient Seen: 07/21/19 Time Patient Seen: 22:13 Interval history: Patient is a gentleman whose XR results I have been following all evening. A some earlier and he had 600 cc of emesis. I did not attempt an NG at that time because he had such difficulty in prior attempts and I presume that his emesis was related to his having contrast in his stomach which often causes nausea. He was given additional anti nausea meds. I was called because he was hypoxic into the 80s and in some respiratory distress. Ordered a chest x-ray and they are regulating his oxygen and it sounded from the collar received that he was no longer hypoxic but did not look appropriate. When I arrived he was breathing comfortably with oxygen supplementation. Chest x-ray had been done and I reviewed it. The only comparison films I have her CT scan of the cheri helton chest on his admission. He clearly had some chronic lung disease in the left lower lobe. The right side as best I could tell was fairly clear but on plain x-ray no longer is. He was also having shaking chills. I presume based on the x-ray and the fact he had been vomiting and his hypoxia that is aspirated and the right side. I wanted to place an NG tube but he absolutely refused unless thigh sedated him. I explained to him that that was a very bad idea as a needed him alert to prevent him from a aspirating further. He told me frankly he was not going to allow for that and declined it and he would see how he is doing in the morning. He denied any abdominal pain. He said he felt much better since he vomited. Exam Vital Signs (past 8 hours): - 07/21/19 14:17 07/21/19 15:25 07/21/19 16:00 Temperature 98.8 F Pulse Rate 69 Respiratory Rate 20 Blood Pressure 113/57 L Pulse Oximetry 98 98 98 07/21/19 19:20 07/21/19 20:05 Temperature 98.5 F Pulse Rate 82 79 Respiratory Rate 15 18 Blood Pressure 121/85 Pulse Oximetry 82 L 90 L Oxygen Delivery Method High Flow Nasal Cannula Oxygen Flow Rate 15 Narrative Exam Narrative: Vital signs noted. He is moving air well bilaterally. Heart regular rate and rhythm. Abdomen is distended in lower abdomen but not tender. No guarding. Objective Labs Result Diagrams: 07/21/19 07:51 07/21/19 07:51 Labs: Laboratory Results - last 24 hr 07/21/19 07/21/19 07:51 07:51 WBC 9.7 RBC 3.48 L Hgb 11.3 L Hct 33.8 L MCV 97.0 MCH 32.4 MCHC 33.4 RDW 13.7 Plt Count 167 Neut % (Auto) 84.3 H Lymph % (Auto) 9.3 L [place] % (Auto) 5.8 Eos % (Auto) 0.3 L Baso % (Auto) 0.3 Neut # (Auto) 8200 H Lymph # (Auto) 900 L [place] # (Auto) 600 Eos # (Auto) 0 Baso # (Auto) 0 Sodium 137 Potassium 3.5 Chloride 102 Carbon Dioxide 30 BUN 26 H Creatinine 1.00 Estimated GFR > 60.0 BUN/Creatinine Ratio 26.0 H Glucose 105 Calcium 8.1 L Phosphorus 2.8 Magnesium 1.9 Assessment & Plan Assessment and plan (1) Hypoxia: Problem details: If the patient aspirated to gastric he may have a significant pulmonary in flammatory reaction therefore I will give him a dose of steroid. I also will begin him on broad-spectrum antibiotics to cover aerobes and anaerobes and g negatives. The patient's emesis smelled fecal a and therefore will cover GI sanjuana as well. Current visit: Yes Status: Acute (2) Aspiration into lower respiratory tract: Current visit: Yes Status: Acute Quality VTE Deep Vein Thrombosis/Pulmonary Embolism Present on Admission: No
[2019-07-21] MEDS: HYDROCORTISONE 100 MG/2 ML VIAL IV (22:57)
[2019-07-21] MEDS: PIPERACILLIN-TAZO 3.375 GM/50 ML FROZ.PIGGY IV (22:57)
[2019-07-22] VITALS (43 sets, daily range): BP systolic 76–136; BP diastolic 43–80; PULSE 70–94; RESP 15–85; TEMP 36.1–37.3; O2SAT 80–100; BMI 20.8
--- NOTE | 2019-07-22 | PATH_ITS ---
[facility] Accession Number: [id number] . 01 Material submitted: . small bowel - SMALL BOWEL SECTION . 01 Clinical history: . BLOCKED UP VOMITING . 02 Diagnosis: Small Bowel, Resection: Mildly active enteritis with congestion and patchy features suggestive of ischemia-type change. No evidence of vasculitis or thrombosis. Negative for granulomas, dysplasia and malignancy. [facility] 07/26/2019 1326 Local . 02 Electronically signed: . Madiha White MD, Pathologist NPI- [id number] . 01 Gross description: . Received in formalin, labeled small bowel section, is an unoriented segment of small bowel (length-16.8 cm, resection margin #1 diameter-2.0 cm, resection margin #2 diameter-4.8 cm) with attached mesentery (up to 2.5 cm in depth). The resection margins are received stapled. The serosa is langford-cui dull and focally eroded. A defect (2.0 x 1.5 cm) is identified 7.0 cm from resection margin #1 and 4.6 cm from resection margin #2. The lumen is stenotic 4.5 cm from resection margin #1. The mucosa adjacent to resection margin #1 is cui with normal folds. The remaining mucosa is cui and diffusely bosselated with a minimal amount of normal folds adjacent to resection margin #2. No nodules, masses or lesions are identified. The resection margins are inked black. Section code: (A1) resection margin #1, customer operations representative longitudinal sections; (A2) resection margin #2, customer operations representative longitudinal sections; (A3-A6) customer operations representative serial sections submitted from resection margin #1 to #2. ([id number]) /[facility] 07/26/2019 1326 Local . 02 Pathologist provided ICD-10: K56.609, K55.019 . 02 CPT . 895875 Performed at: 01 [facility] [address] [id number] MD Deonte Kay MD Phone: [phone] Performed at: 02 [facility] [address] [place], [place] [id number] MD Madiha White MD Phone: [phone]
--- NOTE | 2019-07-22 01:36 | DI.RAD.S_ITS ---
PROCEDURE: XR CHEST 1V INDICATIONS: aspiration TECHNIQUE: One view of the chest was acquired. COMPARISON: [facility], CT, CT ABDOMEN PELVIS W CON, 07/20/2019, 15:23. [facility], CR, XR CHEST 1V, 07/21/2019, 21:50. FINDINGS: Surgical changes and devices: None. Lungs and pleura: Bilateral lower lobe infiltrates suspicious for aspiration or pneumonia. Increased pulmonary interstitium. No pleural effusions or pneumothorax. Mediastinum: Mediastinal contours appear normal. Heart size is normal. Bones and chest wall: No suspicious bony lesions. Overlying soft tissues appear unremarkable. Contrast filled structure in the left hemidiaphragm secondary to distended stomach. IMPRESSION: 1. Bilateral lower lobe infiltrate compatible with aspiration or pneumonia. 2. Chronic interstitial opacity suggesting chronic interstitial lung disease. 3. Distended stomach. Cannot rule out gastric outlet obstruction. Dictated by: Mt Britton M.D. on 07/22/2019 at 8:50 Approved by: Mt Britton M.D. on 07/22/2019 at 8:53
--- NOTE | 2019-07-22 02:06 | PC.NURSE ---
Addendum entered by Cecil Mahan R.N. 07/22/19 07:02: 0615: Propofol increased to 15mcg/kg/min due to wakefulness: pt easily agitated. 0700: ABG in progress. Addendum entered by Cecil Mahan R.N. 07/22/19 05:53: 0500: Pt starting to move, cough. Propofol drip increased to 10mcg/kg/min = 4cc/hr. 0528: Call from lab to report WBC of 1.3. Dr. Wellington here, and lab result reported to him. Addendum entered by Cecil Mahan R.N. 07/22/19 04:42: 0225: Dr. Shepard here, speaking to Dr. Wellington and to patient. 0240: , daughter, and son are here. Dr. Wellington at bedside speaking to them. 0250: Intubation in progress. Medications for rapid sequence intubation brought by Dr. Shepard. RT, Dr. Wellington and RN at bedside for intubation. 0300: Fentanyl 100mcg given IV by Dr. Wellington. Vent settings: TV 400, PEEP 5, rate 20, FIO2 100%. 0320: NGT 16fr inserted by Dr. Wellington. Second IV placed in rt forearm. Propofol drip started at 2 mcg as ordered. 0325: ABG in progress by RT. 0340: Melara catheter placed. Clear nancie urine returned. NGT cannister full, replaced. TV changed by RT to 500. 0400: NGT cannister replaced several times, total output at this time is 3,400cc. 500cc LR bolus started. 0415: Linen changed, soft wrist restraints on. Addendum entered by Cecil Mahan R.N. 07/22/19 02:31: 0205: updated by phone; she states she will be coming to be with her . Pt signed consent for intubation and bowel surgery. 0210: Pt resting in bed, aand maintaining O2 sats of 88-90% on HHFNC. See RT notes. 0224: Dr. Shepard here, speaking to Dr. Wellington and patient. Original Note: Drainage Design Coordinator Note: 0015: Pt transferred to ICU room 104 from acute care. Pt is tired, resting in bed with HOB elevated. Arousable and oriented X3. IV in place in rt forearm with D5NS infusing at 100cc/hr. Lungs are coarse bilaterally with fine ronchi. O2 sats are 90% on 50% O2 via HHFNC. Pt has a Scopalomine patch behind rt ear. Abdomen is distended and firm. 0100: Pt asked for an attempt to try NGT placement again, using lidocaine. NGT attempt unsucessful, and pt vomited about 75cc thin brown secretions. O2 sats down to 77-79%. RT at bedside; 0115: placed on bi-pap briefly to get O2 sats up. O2 sats up to 90% within 20 minutes. staffing coordinator Heather notified of events. 0130: Call to Dr. Wellington to give him the above information. New orders were to obtain a CXR. 0135: CXR done. 0200: Dr. Wellington at bedside, talking to pt. O2 sats are 91%.
--- NOTE | 2019-07-22 02:33 | PM.PREOP ---
Pre-operative Note Interval Note History & Physical reviewed/Exam performed by Physician: Yes Changes to H&P: Yes
[2019-07-22] MEDS: fentaNYL 100 MCG/2 ML INJ (03:10)
--- NOTE | 2019-07-22 03:17 | PM.PROC.1 ---
Procedures Date/Time Date of procedure: 07/22/19 Time of procedure: 03:00 Intubation Time out performed: Yes Sedative: other (Propofol) Mg given: 150 Paralytic: succinylcholine Mg given: 100 Laryngoscope: other (glidescope LoPro S3) ET tube size: 7.5 ET tube uncuffed: Yes Tube secured depth (cm): 22 Tube secured location: teeth Tube placement confirmation: visualized tube passing through cords, equal breath sounds bilaterally, no breath sounds over epigastrium and confirmation by capnometry Patient tolerated procedure: well Intubation complications: none
[2019-07-22] MEDS: PROPOFOL 1,000 MG/100 ML VIAL 2.094 MG IV (03:30)
--- NOTE | 2019-07-22 03:44 | DI.RAD.S_ITS ---
PROCEDURE: XR CHEST 1V INDICATIONS: post intubation. check tube position TECHNIQUE: One view of the chest was acquired. COMPARISON: [facility], , XR CHEST 1V, 07/22/2019, 1:34. FINDINGS: Surgical changes and devices: There is an endotracheal tube 3.5 cm above linnea. A nasogastric tube is noted. The tip is not within the field of view but most likely in the stomach. Lungs and pleura: Bilateral infiltrates and left basilar consolidation suspicious for pneumonia. No pleural effusions or pneumothorax. Mediastinum: Mediastinal contours appear normal. Heart size is normal. Bones and chest wall: No suspicious bony lesions. Overlying soft tissues appear unremarkable. IMPRESSION: 1. Endotracheal tube is 3.5 cm above linnea. 2. A nasogastric tube is present. The tip is outside of the [id number]-[id number]-cgmn but probably in the stomach. Abdominal x-ray is suggested to confirm tip position. Dictated by: Mt Britton M.D. on 07/22/2019 at 8:53 Approved by: Mt Britton M.D. on 07/22/2019 at 8:55
[2019-07-22] MEDS: PANTOPRAZOLE 40 MG VIAL IV ×2 (03:45→10:42)
[2019-07-22] MEDS: LACTATED RINGERS 500 ML 1000 ML IV (03:45)
[2019-07-22] MEDS: PIPERACILLIN-TAZO 3.375 GM/50 ML FROZ.PIGGY IV ×4 (04:00→21:43)
[2019-07-22] MEDS: HYDROCORTISONE 100 MG/2 ML VIAL IV (04:25)
[2019-07-22 04:40] LABS: HCO3 ABG 25 mmol/L (22-26); PCO2 ABG 49.6 mmHg (35-45); PO2 ABG 75 mmHg (80-100); TCO2 ABG 26 mmol/L (21-31); pH ABG 7.31 (7.35-7.45)
[2019-07-22 04:41] LABS: Fractionated Inspired Oxygen 100; Oxygen Saturation ABG 93 % (95-100)
--- NOTE | 2019-07-22 05:20 | PM.PN.1 ---
Subjective Subjective Date Patient Seen: 07/22/19 Time Patient Seen: 05:25 Interval history: Patient was moved to the ICU. I was called because he had apparently vomited again became hypoxic and there was difficulty bringing his all to sats up. Came in immediately and in route had the nursing psychiatric social worker supervisor contact anesthesia to come in to potentially intubated him. I assessed the patient and felt he probably was should be intubated. It was clear that he was 1 episode of emesis from further aspiration and potential arrest. He was satting in about 89 consistently on 55 L flow of oxygen on BiPAP. He felt terrible. Was tachypneic breathing greater than 20 times a minute. I talked to him about whether he wanted to be intubated or not and placed on a ventilator. He said he was willing but did not want to be in a prolonged situation like that. He did not want to be resuscitated if his heart should stop. He said that his and children were aware of this.(I confirmed this with them when they arrived) I also talked to him about an operation to relieve his obstruction and about risks of bleeding infection hernia at potential intestinal removal and . He stated that that was not that terrible thing if he could be healthy or functional. He did want to proceed with an operation if needed. His and daughter arrived and his son called and I had him talk with him by phone. His and daughter spent some time with him as we prepared to intubate him. Duct were totally was kind enough to come in and perform the intubation. It went well. I placed an NG tube in immediately the got 2.5 L of brown fluid. Chest x-ray shows the ET tube to be in fairly good position. The lungs were becoming more fluffy an in with infiltrate. Melara catheter was placed and he had some dark urine. Small volume so a fluid bolus was ordered. Labs were also ordered which are presently pending. Blood gas was performed and we increased his tidal volume to blow off more CO2 and thus improve his PH. Repeat will be performed. Patient was placed on a propofol drip as well. Presently waiting on labs before deciding when she proceed to the operating room. Patient has had no return of bowel function. His sats have been in the mid 90s since being intubated. Pulse has been normal. Blood pressure has been a little low but acceptable. Exam Vital Signs (past 8 hours): - 07/21/19 21:34 07/22/19 00:30 Temperature 98.3 F Pulse Rate 88 92 H Respiratory Rate 20 28 H Blood Pressure 127/71 Pulse Oximetry 94 96 Fraction of Inspired Oxygen 100 Oxygen Delivery Method Heated High Flow Oxygen Flow Rate 50 Objective Labs Result Diagrams: 07/21/19 07:51 07/21/19 07:51 Labs: Laboratory Results - last 24 hr 07/21/19 07/21/19 07/22/19 07:51 07:51 03:29 WBC 9.7 RBC 3.48 L Hgb 11.3 L Hct 33.8 L MCV 97.0 MCH 32.4 MCHC 33.4 RDW 13.7 Plt Count 167 Neut % (Auto) 84.3 H Lymph % (Auto) 9.3 L [place] % (Auto) 5.8 Eos % (Auto) 0.3 L Baso % (Auto) 0.3 Neut # (Auto) 8200 H Lymph # (Auto) 900 L [place] # (Auto) 600 Eos # (Auto) 0 Baso # (Auto) 0 ABG pH 7.31 L ABG pCO2 49.6 H ABG pO2 75 L ABG HCO3 25 ABG Total CO2 26 ABG O2 Saturation 93 L ABG Base Excess -1.0 FiO2 100 Sodium 137 Potassium 3.5 Chloride 102 Carbon Dioxide 30 BUN 26 H Creatinine 1.00 Estimated GFR > 60.0 BUN/Creatinine Ratio 26.0 H Glucose 105 Calcium 8.1 L Phosphorus 2.8 Magnesium 1.9 Quality VTE Deep Vein Thrombosis/Pulmonary Embolism Present on Admission: No
[2019-07-22 05:27] LABS: Mean Corpuscular HGB Conc 33.4 % (30-36); Mean Corpuscular Hemoglobin 32.4 PG (26-34); Mean Corpuscular Volume 96.9 fL (80-100); Platelet Count 179 X10^3/uL (150-400); Red Blood Cell Count 4.02 X10^6/uL (4.5-5.9); Red Cell Distribution Width 13.2 % (11.6-14.8)
[2019-07-22 05:28] LABS: Alanine Aminotransferase 15 IU/L (21-72); Albumin 3.1 g/dL (3.5-5.0); Albumin Globulin Ratio 1.2 (1.0-2.8); Alkaline Phosphatase 42 U/L (38-126); Aspartate Aminotransferase 20 IU/L (17-59); BUN Creatinine Ratio 22.5 (6-22); Bilirubin Total 1.3 mg/dL (0.2-1.3); Blood Urea Nitrogen 27 mg/dL (9-20); Calcium 8.9 mg/dL (8.4-10.2); Carbon Dioxide 27 mmol/L (22-32); Chloride 108 mmol/L (98-107); Estimated Glomerular Filt Rate 58.4 mL/min (>60); Globulin 2.6 g/dL (1.7-4.1); Glucose 168 mg/dL (80-110); HEMOLYSIS < 15 (0-50); Magnesium 2.2 mg/dL (1.6-2.3); Sodium 145 mmol/L (137-145); Total Protein 5.7 g/dL (6.3-8.2)
[2019-07-22 05:29] LABS: Lactate (Lactic Acid) 3.4 mmol/L (0.7-2.1)
[2019-07-22 05:30] LABS: Add Manual Diff / Slide Review YES; White Blood Cell Count 1.3 X10^3/uL (4.5-11.0)
[2019-07-22 06:29] LABS: Phosphorous 1.7 mg/dL (2.3-3.7)
[2019-07-22 06:41] LABS: Neutrophils Absolute Manual 676 /uL (3000-5900); Total Cells Counted 50
[2019-07-22 06:44] LABS: Dohle Bodies 2+
[2019-07-22 07:11] LABS: HCO3 ABG 25 mmol/L (22-26); PCO2 ABG 39.1 mmHg (35-45); PO2 ABG 102 mmHg (80-100); TCO2 ABG 26 mmol/L (21-31); pH ABG 7.41 (7.35-7.45)
[2019-07-22 07:12] LABS: Fractionated Inspired Oxygen 100; Oxygen Saturation ABG 98 % (95-100)
[2019-07-22 07:16] LABS: Reflexed Lactate in 2 Hours Y
--- NOTE | 2019-07-22 07:34 | PC.NURSE ---
Addendum entered by Elver Barrett R.N. 07/22/19 15:23: Pt has tolerated weaning fio2 to 60%. He is sedated to Rass -3 on propofol 25 mcg/kg/min. VSS. Pt is not restrained. He has not attempted to reaching for lines/tubes. With light sedation, pt is able to follow directions and nod head yes/no seemingly appropriately. He has indicated that he has a high amount of pain to his abd. Medicated x2 with morphine. After IVP morphine, pt able to nod head yes that has helped with his pain. Pt had PICC placed due to tenuous IV access and multiple medications due. He tolerated well. and children have been at bedside intermittently and are agreeable/ aware of plan of care. Addendum entered by Elver Barrett R.N. 07/22/19 09:57: Report rec'd from PHYSICIAN OBSTETRICIAN. Addendum entered by Elver Barrett R.N. 07/22/19 09:32: 0920- Pt back to room for recovery. Dr. Shepard and PHYSICIAN OBSTETRICIAN at bedside. Pt is sedated/paralyzed, breathing with vent settings, VSS, ETCO2 29, SPO2 89-92%. LR infusing. NGT connected to LIS. Midline DSG CDI. Melara to gravity. Original Note: Rec'd pt in bed eyes closed intubated and sedated with propofol at 15 mcg/kg/min for RASS -3. Family at bedside. Plan for OR this AM. Lungs are course. RR 20 with SPO2 98% on current vent settings. Stable VS. Dr. Shepard to bedside obtaining anesthesia consent. Dr. Griggs, HOME CHILD CARE PROVIDER, and Dr. Shepard transferred pt to OR with propofol infusing, ambu bag/O2/manual breaths, transport monitor, in pt bed. Left unit at 0734.
--- NOTE | 2019-07-22 07:57 | SUR.OPER ---
Supine on padded OR bed, head on pillow, arms secured on padded arm boards at <90 degrees abduction, legs uncrossed, safety belt at thigh, tape over blanket over lower legs.
[2019-07-22 08:45] LABS: Lactate 2HR (Lactic Acid Rflx) 3.2 mmol/L (0.7-2.1)
--- NOTE | 2019-07-22 09:58 | SUR.PHASEI ---
Pt brought from OR directly to ICCU. Accompanied by anesthesia and dr yun canada rn and myself. Pt attaced to moniters, NGT to LIS and RT to place pt on ventilator. BP low, HOB down and 500mls of bolus infusing. BP up 121 systolic. Dressing remained cdi and pt left with Elver in stable condition.
[2019-07-22] MEDS: POTASSIUM CHLORIDE 20 MEQ in SODIUM CHLORIDE 0.9% 250 ML 130 ML IV (10:00)
[2019-07-22] MEDS: LACTATED RINGERS 1,000 ML 150 ML IV ×2 (10:00→14:51)
[2019-07-22] MEDS: MORPHINE 2 MG/ML INJ IV ×3 (10:15→21:04)
[2019-07-22] MEDS: ENOXAPARIN 40 MG/0.4 ML SYRINGE SUBCUT (10:41)
--- NOTE | 2019-07-22 10:59 | PM.OP.1 ---
Operative Date/Time/Diagnoses Date of procedure: 07/22/19 Time of procedure: 10:59 Pre-op diagnosis: Small-bowel obstruction Post-op diagnosis: same Procedure & Clinicians Procedure: Exploratory laparotomy lysis of adhesions Small-bowel resection Same procedure as scheduled: Yes Indications: 78-year-old male history of a low anterior resection was admitted to hospital with a small-bowel obstruction. CT A/P and Gastrografin small-bowel follow-through both demonstrated a small-bowel obstruction with no transition of contrast into the colon. The patient after multiple attempts at NGT placement declined further attempts and had an episode of aspiration. He provided consent for surgery but remained adamant about the refusing NGT placement. He subsequently had another episode of aspiration which required intubation and was then taken to the operating room. Surgeon: Scooby Griggs Click Yes if Unassisted: No Anesthesia Type: General Operative Notes Findings: Chronic small-bowel adhesion pelvis. Specimen(s): other (Small-bowel resection) Estimated Blood Loss (mL): 10 Procedure in detail: The the patient was brought to the operating room placed supine on the table. Bilateral lower extremity compression devices were applied. He was prepped and draped in sterile fashion. Time-out was performed ensure the correct patient procedure necessary equipment within the operating room. The a generous midline incision was made and carried down through the previous scar. The abdomen was entered atraumatically. The greater omentum was plastered to the pelvis and was carefully dissected such that the small bowel content could be eviscerated. There was a chronic appearing adhesion to the mid small bowel within the pelvis with an obvious transition point. The adhesion was taken down using [place]. The small bowel was then inspected from the terminal ileum to the ligament of Trietz and there were no other points of obstruction. The quality of the small bowel at this point of chronic adhesion was marginal and therefore I perform a small-bowel resection of approximately 15 cm Bowel clamps were placed proximally and distally an enterotomy was made and I evacuated the contents of the small bowel which were significant. The small bowel was then resected. A window within the mesentery on both sides was created and then the bowel was divided using the MELITON stapler with a blue bowel load. The resected small bowel was then removed with its mesentery using the ligature. An enterotomy was made on both ends of the small bowel and a ngid-oe-llls anastomosis was fashioned using a 3rd fire of the MELITON stapler. The common channel was widely patent. The common enterotomy was then closed with a running 4-0 Maxon suture. The mesenteric defect was closed with running 3-0 Vicryl. The abdomen was then irrigated with several L of sterile water and the small bowel content was returned to its normal anatomical position. The midline fascia was closed using a running #1 Maxon, skin closed with toño. Patient tolerated the operation well. The sponge and instrument counts in the operation was correct. He was then transferred back to the intensive care unit and stable condition.
--- NOTE | 2019-07-22 11:23 | SUR.PHASEI ---
500ml bolus from dr rodas completed, charted in I&O under LR from surgery and partially in 500ml bolus record.
[2019-07-22] MEDS: POTASSIUM PHOSPHATE 15 MMOL in DEXTROSE 5% IN WATER 250 ML 63.75 ML IV (12:32)
--- NOTE | 2019-07-22 14:07 | DI.RAD.S_ITS ---
PROCEDURE: XR CHEST 1V INDICATIONS: central line placement TECHNIQUE: One view of the chest was acquired. COMPARISON: [facility], CR, XR CHEST 1V, 07/22/2019, 3:49. FINDINGS: Surgical changes and devices: ET tube tip is approximately 3 cm above the linnea. Enteric tube tip is below the level of left hemidiaphragm. Left-sided PICC line tip is in the SVC. Lungs and pleura: The ill-defined airspace opacities are seen in the right mid to lower lung field and left lower lung field. No gross pneumothorax. No pleural effusion. Mediastinum: Mediastinal contours appear normal. Heart size is normal. Bones and chest wall: No suspicious bony lesions. Overlying soft tissues appear unremarkable. IMPRESSION: Left-sided PICC line tip is in SVC. Patchy infiltrates in bilateral mid to lower lung hernández. No gross pneumothorax. Dictated by: Scott Harris M.D. on 07/22/2019 at 14:38 Approved by: Scott Harris M.D. on 07/22/2019 at 14:40
[2019-07-22] MEDS: PROPOFOL 1,000 MG/100 ML VIAL 10.47 MG IV ×2 (14:20→21:43)
--- NOTE | 2019-07-22 16:22 | CM.DANOTE ---
Addendum entered by Sandra Qureshi LPN 07/22/19 16:25: Case again discussed in Team Rounds with surgery planned for today. Was unable to see pt as he was working with care team members on preparing for surgery. NGT placement was attempted several times with pt having 2 episodes of aspiration during process. Pt was taken to surgery by Dr. Griggs at 1100 for: Exploratory Laporotomy: KP and Small Bowel Resection. (he has hx of prior abdominal surgery) Anticipate pt will be here for a few days recovering. Will check in tomorrow and follow for d/c issues and options as these become clearer. Original Note: Discharge Planning/Care Management DCP: assessment: case received yesterday, EMR reviewed, discussed in Team Rounds. Pt is a 78 year old male who admitted eveing of 07/20 to care of [facility]. Dr. Griggs has been seeing pt. PCP: Dr. Kelby Tipton Payer: Medicare and [employer]. INPT admission status: confirmed by UR JADIEL Barton. Caseload triage decision made to continue the assessment process today. Advanced directive, confirm from CLINIC Start: 07/20/19 19:01 Freq: Q24H Status: Active Protocol: Document 07/20/19 19:01 MLA (Rec: 07/20/19 19:03 MLA [id number]) Advance Directive, confirm on record Time 19:02 Person contacted Carson Espinoza Copy received No Document 07/21/19 19:01 MLA (Rec: 07/21/19 19:32 MLA [id number]) Advance Directive, confirm on record Time 19:02 Person contacted Carson Espinoza Copy received No Time 19:32 Person contacted pt Copy received No CM Discharge Assessment Start: 07/22/19 16:20 Freq: Status: Active Protocol: Document 07/22/19 16:21 ITV (Rec: 07/22/19 16:22 ITV [id number]) Discharge Planning Assessment Advance Directives? Yes History Provided By Medical Record Prior Living Arrangements House Household Members spouse Review Status In Process
[2019-07-22] MEDS: SODIUM CHLORIDE 0.9% 1,000 ML 1000 ML IV (16:35)
[2019-07-22 18:24] LABS: Blood Urea Nitrogen 26 mg/dL (9-20); Calcium 7.6 mg/dL (8.4-10.2); Carbon Dioxide 25 mmol/L (22-32); Chloride 106 mmol/L (98-107); Estimated Glomerular Filt Rate > 60.0 mL/min (>60); Glucose 136 mg/dL (80-110); HEMOLYSIS < 15 (0-50); Potassium 4.3 mmol/L (3.4-5.1); Sodium 141 mmol/L (137-145)
[2019-07-22 18:33] LABS: HCO3 ABG 24 mmol/L (22-26); PCO2 ABG 32.9 mmHg (35-45); PO2 ABG 77 mmHg (80-100); TCO2 ABG 24 mmol/L (21-31); pH ABG 7.46 (7.35-7.45)
[2019-07-22 18:34] LABS: Oxygen Saturation ABG 96 % (95-100)
[2019-07-22 18:35] LABS: Fractionated Inspired Oxygen 50
[2019-07-22] MEDS: LACTATED RINGERS 1,000 ML 200 ML IV (21:01)
--- NOTE | 2019-07-22 22:07 | PC.NURSE ---
2200- Patient remains vented, Fi02 weaned to 50%, rate of 18, peep of 5 and TV 500. Lungs are clear anteriorly coarse posterior bases. No secretions noted, scopalomine patch removed from behind the left ear. Medicated x1 for pain. Propofol gtt at 25mic/kg. LR infusing at 200hr. UOP between 20-25cc hr. Dr. Griggs wants to be called if UOP drops below 20cc/hr. Low grade temp noted. Patient remains in NSR and mean BP has been above 60 all shift.
[2019-07-23] VITALS (32 sets, daily range): BP systolic 80–143; BP diastolic 41–68; PULSE 73–89; RESP 14–55; TEMP 36.8–37.9; O2SAT 81–98; BMI 20.8
[2019-07-23] MEDS: LACTATED RINGERS 1,000 ML 200 ML IV ×2 (01:58→06:55)
[2019-07-23] MEDS: PIPERACILLIN-TAZO 3.375 GM/50 ML FROZ.PIGGY IV ×4 (04:50→22:10)
[2019-07-23 05:16] LABS: Hematocrit 32.3 % (41-53); Mean Corpuscular HGB Conc 34.2 % (30-36); Mean Corpuscular Hemoglobin 32.8 PG (26-34); Mean Corpuscular Volume 95.9 fL (80-100); Platelet Count 158 X10^3/uL (150-400); Red Blood Cell Count 3.36 X10^6/uL (4.5-5.9); White Blood Cell Count 7.6 X10^3/uL (4.5-11.0)
[2019-07-23 05:19] LABS: Add Manual Diff / Slide Review YES
[2019-07-23 05:22] LABS: BUN Creatinine Ratio 24.5 (6-22); Blood Urea Nitrogen 27 mg/dL (9-20); Calcium 7.4 mg/dL (8.4-10.2); Carbon Dioxide 29 mmol/L (22-32); Chloride 107 mmol/L (98-107); Estimated Glomerular Filt Rate > 60.0 mL/min (>60); Glucose 95 mg/dL (80-110); HEMOLYSIS < 15 (0-50); Magnesium 1.7 mg/dL (1.6-2.3); Phosphorous 2.4 mg/dL (2.3-3.7); Potassium 3.4 mmol/L (3.4-5.1); Sodium 142 mmol/L (137-145)
--- NOTE | 2019-07-23 06:04 | DI.RAD.S_ITS ---
PROCEDURE: XR CHEST 1V INDICATIONS: intubation TECHNIQUE: One view of the chest was acquired. COMPARISON: [facility], [place], XR CHEST 1V, 07/22/2019, 14:10. FINDINGS: Surgical changes and devices: PICC line projects in the distal SVC. ET tube projects approximately 4.6 cm superior to the linnea. NG tube projects across the GE junction. Lungs and pleura: Patchy airspace opacities in the lungs bilaterally which increased in size. No pleural effusions or pneumothorax. Mediastinum: Mediastinal contours appear normal. Heart size is normal. Bones and chest wall: No suspicious bony lesions. Overlying soft tissues appear unremarkable. IMPRESSION: Worsening bilateral lung patchy air space opacities concerning for progression of multilobar pneumonia or pulmonary edema. Dictated by: Rachell Berg MD, PhD on 07/23/2019 at 8:34 Approved by: Rachell Berg MD, PhD on 07/23/2019 at 8:35
[2019-07-23] MEDS: PROPOFOL 1,000 MG/100 ML VIAL 10.47 MG IV (06:56)
[2019-07-23 07:10] LABS: Total Cells Counted 100
[2019-07-23 07:11] LABS: Neutrophils Absolute Manual 4788 /uL (3000-5900); RBC Morphology Normal Morphology
--- NOTE | 2019-07-23 08:00 | CM.DPC ---
DCP: continued: went to room as planned. Pt is on ventilator support. RN reports no plans to attempt wean at this time. Family are expected in sometime later today. Pt's room/white board is updated with DCP team contact info. At this point only General Surgery is following. Is unclear if a hospitalist consult will be given. Will be following as POC unfolds.
[2019-07-23] MEDS: PANTOPRAZOLE 40 MG VIAL IV (08:26)
[2019-07-23] MEDS: ENOXAPARIN 40 MG/0.4 ML SYRINGE SUBCUT (08:26)
[2019-07-23] MEDS: MORPHINE 2 MG/ML INJ IV ×2 (08:26→16:34)
--- NOTE | 2019-07-23 09:32 | P.PN_ITS ---
Subjective Subjective Date Patient Seen: 07/23/19 Time Patient Seen: 09:33 Interval history: Ex lap and small bowel resection yesterday by Dr. Griggs for SBO. Alert after surgery per nurse, nodding appropriately in response to questions. Currently sedated on propofol. Overnight pt UOP has picked up. Pain controlled on PRN IV morphine. Exam Vital Signs (past 8 hours): - 07/23/19 02:03 07/23/19 02:45 07/23/19 04:00 Temperature Pulse Rate 82 82 88 Respiratory Rate 19 18 18 Blood Pressure 80/52 L 104/56 L 86/50 L Pulse Oximetry 97 96 94 07/23/19 04:06 07/23/19 05:03 07/23/19 06:01 Temperature 99.3 F Pulse Rate 85 85 86 Respiratory Rate 18 18 18 Blood Pressure 104/60 101/49 L 111/55 L Pulse Oximetry 98 94 94 07/23/19 06:03 07/23/19 08:00 07/23/19 09:00 Temperature 99.9 F H Pulse Rate 80 77 Respiratory Rate 18 18 Blood Pressure 112/58 L 104/54 L Pulse Oximetry 94 95 96 Fraction of Inspired Oxygen 35 Oxygen Delivery Method Mechanical Ventilation Oxygen Flow Rate 50 Narrative Exam Narrative: Sedated, intubated Vent settings reviewed, noted in RT documentation Pulm: coarse breath sounds BL NGT in place with serobilious output, 50mL overnight; Milked tube during exam for additional 30mL; NGT is now actively sumping Abdominal dressing c/d/i Abdomen mildly distended No scrotal or extremity edema Underwood in place with clear urine Objective Imaging Chest x-ray: Radiologist's impression: [facility] [place] [id number] XRay Report Signed Patient: Alfredo Espinoza [facility]#: [id number] : 1940Acct:[id number] Age/Sex: 78 / MDate of Service: 07/23/19 Loc: [id number] Accession Number: [id number] Procedure: XR chest 1V Ordering Provider: Scooby Griggs MD PROCEDURE: XR CHEST 1V INDICATIONS: intubation TECHNIQUE: One view of the chest was acquired. COMPARISON: [facility], [place], XR CHEST 1V, 07/22/2019, 14:10. FINDINGS: Surgical changes and devices: PICC line projects in the distal SVC. ET tube projects approximately 4.6 cm superior to the linnea. NG tube projects across the GE junction. Lungs and pleura: Patchy airspace opacities in the lungs bilaterally which increased in size. No pleural effusions or pneumothorax. Mediastinum: Mediastinal contours appear normal. Heart size is normal. Bones and chest wall: No suspicious bony lesions. Overlying soft tissues appear unremarkable. IMPRESSION: Worsening bilateral lung patchy air space opacities concerning for progression of multilobar pneumonia or pulmonary edema. Dictated by: Rachell Berg MD, PhD on 07/23/2019 at 8:34 Approved by: Rachell Berg MD, PhD on 07/23/2019 at 8:35 Labs Result Diagrams: 07/23/19 04:45 07/23/19 04:45 Labs: Laboratory Results - last 24 hr 07/22/19 07/22/19 07/23/19 18:05 18:06 04:45 WBC 7.6 D RBC 3.36 L Hgb 11.0 L Hct 32.3 L MCV 95.9 MCH 32.8 MCHC 34.2 RDW 14.0 Plt Count 158 Neut % (Auto) Not Reportable Lymph % (Auto) Not Reportable [place] % (Auto) Not Reportable Eos % (Auto) Not Reportable Baso % (Auto) Not Reportable Lymph # (Auto) Not Reportable [place] # (Auto) Not Reportable Baso # (Auto) Not Reportable Total Counted 100 Seg Neutrophils % 43.0 D Band Neutrophils % 20.0 H Lymphocytes % (Manual) 23.0 L Atypical Lymphs % 5.0 H Monocytes % (Manual) 8.0 Eosinophils % (Manual) 1.0 L Neutrophils # (Manual) 4788 RBC Morphology Normal morphology ABG pH 7.46 H ABG pCO2 32.9 L ABG pO2 77 L ABG HCO3 24 ABG Total CO2 24 ABG O2 Saturation 96 ABG Base Excess 0.0 FiO2 50 Sodium 141 Potassium 4.3 D Chloride 106 Carbon Dioxide 25 BUN 26 H Creatinine 1.00 Estimated GFR > 60.0 BUN/Creatinine Ratio 26.0 H Glucose 136 H Calcium 7.6 L Phosphorus Magnesium 07/23/19 04:45 WBC RBC Hgb Hct MCV MCH MCHC RDW Plt Count Neut % (Auto) Lymph % (Auto) [place] % (Auto) Eos % (Auto) Baso % (Auto) Lymph # (Auto) [place] # (Auto) Baso # (Auto) Total Counted Seg Neutrophils % Band Neutrophils % Lymphocytes % (Manual) Atypical Lymphs % Monocytes % (Manual) Eosinophils % (Manual) Neutrophils # (Manual) RBC Morphology ABG pH ABG pCO2 ABG pO2 ABG HCO3 ABG Total CO2 ABG O2 Saturation ABG Base Excess FiO2 Sodium 142 Potassium 3.4 Chloride 107 Carbon Dioxide 29 BUN 27 H Creatinine 1.10 Estimated GFR > 60.0 BUN/Creatinine Ratio 24.5 H Glucose 95 Calcium 7.4 L Phosphorus 2.4 Magnesium 1.7 Assessment & Plan Assessment & Plan narrative: 78 yo man POD#1 s/p exlap and SBR for SBO. Course complicated by aspiration two days ago and decompensation/intubation that night. Resp status improving on vent. Pt has not had CPAP trial or sedation holiday since surgery. WBC normal, other labs favorable. Needs K repletion. CXR consistent with probable pneumonia or fluid overload. Will decrease fluids and continue antibiotics for now, and follow daily labs and CXR. Plan: vent weaning, CPAP trial; Dr. Griggs to see before extubation sedation holiday as tolerated Continue zosyn for aspiration pneumonia Decrease IV fluids Daily labs and CXR Keep underwood in place for now SCD's DVT ppx GI ppx Quality VTE Deep Vein Thrombosis/Pulmonary Embolism Present on Admission: No
[2019-07-23 10:29] LABS: Fractionated Inspired Oxygen 30; HCO3 ABG 25 mmol/L (22-26); Oxygen Saturation ABG 96 % (95-100); PCO2 ABG 36.6 mmHg (35-45); PO2 ABG 75 mmHg (80-100); TCO2 ABG 26 mmol/L (21-31); pH ABG 7.44 (7.35-7.45)
[2019-07-23] MEDS: POTASSIUM CHLORIDE 20 MEQ in SODIUM CHLORIDE 0.9% 250 ML 130 ML IV (11:01)
--- NOTE | 2019-07-23 11:20 | PC.NURSE ---
Addendum entered by Elver Barrett R.N. 07/23/19 12:07: Pt extubated per ZHANE Griggs. Pt on 2L NC with SPO2 93-96% and RR 19-22. He reports dry mouth and discomfort to throat and face but denies abd pain at this time. VSS. Oriented to room, routine, call light, tubes/lines, plan of care. Pt verbalizes understanding. Will monitor. Original Note: Propofol titrated to off at 1155 for sedation vacation. Pt mostly with eyes closed but following directions and nodding head yes/no appropriately. Nods head no when asked if having pain. Nods head yes when asked if positioning was comfortable. He indicates discomfort with ETT. Washed face and administered oral hygiene. Oriented to person/place/time/situation and plan of care. Pt nods head yes in understanding. at bedside. RT at bedside. Pressure support trial started at 1104 per MD orders. at bedside holding pt's hand.
[2019-07-23] MEDS: LACTATED RINGERS 1,000 ML 100 ML IV (13:32)
[2019-07-23] MEDS: ACETAMINOPHEN 650 MG SUPP PR (14:21)
--- NOTE | 2019-07-23 19:00 | PC.NURSE ---
Addendum entered by Angle Rivera R.N. 07/23/19 22:30: 2215 - Repositioned. Oral care. Encouraged IS use. Weak cough. Grimace with repositioning however pt declines RX. Call light in reach. Addendum entered by Angle Rivera R.N. 07/23/19 20:51: 2000 - Dr. Miranda at bedside. Notified of BG of 72. Discussed hypoglycemic protocol. Order obtained to change IVF. Discussed pain control and pt wishes. Orders obtained. Original Note: 1899 - Pt c/o feeling gunk in his throat. Encouraged pt to use the IS, 5 x 500, each breath followed by a weak non-productive cough. 96% on 2L NC, Pt states that's enough for now. Discussed repositioning. Pt states No. Temp 99.1. Monitor. Supportive at bedside.
[2019-07-23] MEDS: DEXTROSE 5%-NS W/KCL 20MEQ 1,000 ML 80 MEQ IV (20:04)
[2019-07-24] VITALS (15 sets, daily range): BP systolic 107–128; BP diastolic 47–77; PULSE 56–74; RESP 12–38; TEMP 36.4–37.5; O2SAT 87–96; BMI 20.8
[2019-07-24] MEDS: MORPHINE 2 MG/ML INJ 1 MG IV ×2 (00:14→10:07)
[2019-07-24] MEDS: PIPERACILLIN-TAZO 3.375 GM/50 ML FROZ.PIGGY IV ×4 (03:47→21:57)
[2019-07-24 05:19] LABS: Add Manual Diff / Slide Review NO; Basophils Absolute Auto 0 /uL (0-100); Basophils Percent Auto 0.4 % (0-2); Eosinophils Absolute Auto 0 /uL (0-450); Eosinophils Percent Auto 0.6 % (2-4); Hematocrit 30.3 % (41-53); Hemoglobin 10.2 g/dL (13.5-17.5); Lymphocytes Absolute Auto 600 /uL (1100-4500); Lymphocytes Percent Auto 9.1 % (25-40); Mean Corpuscular HGB Conc 33.7 % (30-36); Mean Corpuscular Hemoglobin 32.4 PG (26-34); Mean Corpuscular Volume 96.3 fL (80-100); Monocytes Absolute Auto 200 /uL (0-900); Monocytes Percent Auto 3.4 % (3-14); Neutrophils Absolute Auto 5800 /uL (1500-7000); Neutrophils Percent Auto 86.5 % (50-75); Platelet Count 154 X10^3/uL (150-400); Red Blood Cell Count 3.15 X10^6/uL (4.5-5.9); Red Cell Distribution Width 13.8 % (11.6-14.8); White Blood Cell Count 6.7 X10^3/uL (4.5-11.0)
[2019-07-24 05:21] LABS: Magnesium 2.3 mg/dL (1.6-2.3)
[2019-07-24 05:22] LABS: Alanine Aminotransferase 21 IU/L (21-72); Albumin 2.3 g/dL (3.5-5.0); Albumin Globulin Ratio 0.9 (1.0-2.8); Alkaline Phosphatase 48 U/L (38-126); Aspartate Aminotransferase 19 IU/L (17-59); BUN Creatinine Ratio 23.3 (6-22); Bilirubin Total 1.2 mg/dL (0.2-1.3); Blood Urea Nitrogen 21 mg/dL (9-20); Calcium 7.7 mg/dL (8.4-10.2); Carbon Dioxide 31 mmol/L (22-32); Chloride 109 mmol/L (98-107); Estimated Glomerular Filt Rate > 60.0 mL/min (>60); Globulin 2.5 g/dL (1.7-4.1); Glucose 87 mg/dL (80-110); HEMOLYSIS < 15 (0-50); Potassium 3.4 mmol/L (3.4-5.1); Sodium 144 mmol/L (137-145); Total Protein 4.8 g/dL (6.3-8.2)
[2019-07-24] MEDS: DEXTROSE 5%-NS W/KCL 20MEQ 1,000 ML 80 MEQ IV (09:30)
[2019-07-24] MEDS: ENOXAPARIN 40 MG/0.4 ML SYRINGE SUBCUT (09:31)
[2019-07-24] MEDS: PANTOPRAZOLE 40 MG VIAL IV (09:31)
--- NOTE | 2019-07-24 15:59 | P.PN_ITS ---
Subjective Subjective Date Patient Seen: 07/24/19 Time Patient Seen: 08:59 Interval history: Patient post exploratory laparotomy adhesiolysis. Complains of abdominal pain. Exam Vital Signs (past 8 hours): - 07/24/19 08:08 07/24/19 10:35 07/24/19 10:37 Temperature Pulse Rate Respiratory Rate Blood Pressure Pulse Oximetry 94 87 L 93 07/24/19 12:15 07/24/19 15:49 07/24/19 15:56 Temperature 98.5 F 99.1 F Pulse Rate 61 60 60 Respiratory Rate 12 24 18 Blood Pressure 117/60 107/77 Pulse Oximetry 94 95 93 Fraction of Inspired Oxygen 30 Oxygen Delivery Method Nasal Cannula Oxygen Flow Rate 4 Narrative Exam Narrative: Lungs really poor effort. Big barely hear inter movement. Abdomen dressing is intact. Mild distention. Melara is in place. NG draining light bilious material. Objective Labs Result Diagrams: 07/24/19 04:40 07/24/19 04:40 Labs: Laboratory Results - last 24 hr 07/24/19 07/24/19 07/24/19 04:40 04:40 04:40 WBC 6.7 RBC 3.15 L Hgb 10.2 L Hct 30.3 L MCV 96.3 MCH 32.4 MCHC 33.7 RDW 13.8 Plt Count 154 Neut % (Auto) 86.5 H Lymph % (Auto) 9.1 L [place] % (Auto) 3.4 Eos % (Auto) 0.6 L Baso % (Auto) 0.4 Neut # (Auto) 5800 Lymph # (Auto) 600 L [place] # (Auto) 200 Eos # (Auto) 0 Baso # (Auto) 0 Sodium 144 Potassium 3.4 Chloride 109 H Carbon Dioxide 31 BUN 21 H Creatinine 0.90 Estimated GFR > 60.0 BUN/Creatinine Ratio 23.3 H Glucose 87 Calcium 7.7 L Magnesium 2.3 Total Bilirubin 1.2 AST 19 ALT 21 Alkaline Phosphatase 48 Total Protein 4.8 L Albumin 2.3 L Globulin 2.5 Albumin/Globulin Ratio 0.9 L Assessment & Plan Post-op Postoperative Procedures: Procedures Operation Date: 07/22/19 07:45 Actual Procedures Side Surgeon p Exploratory Laparotomy GEN, small bowel resection Scooby Griggs MD Postoperative day: 2 Postoperative status narrative: Doing pretty much as expected. He is satting well. Postoperative plan narrative: Encouraged to ambulate and deep breathe. Nursing plan to encourage him in mobilizing and breathing deep. Will look at his wound tomorrow. Continue NG suction and Melara for now. Patient appears to have acute blood loss anemia secondary to his operation + probably a significant component of his fluid redistribution and acute illness. Will follow. Quality VTE Deep Vein Thrombosis/Pulmonary Embolism Present on Admission: No
--- NOTE | 2019-07-24 16:01 | CM.DPC ---
DCP Cont: Attempted to speak to patient, but was sleeping, not in room. Left a message with , Carson, that she can call this case packer back. Would like to discuss discharge planning. Have not noted that patient does not currently have orders for P.T. as of yet. P: DCP to continue to follow, and reach out to patient and for discharge needs. Noemy Ewing RN/Customer Success Associate
--- NOTE | 2019-07-24 19:22 | PC.NURSE ---
crista note Pt up in chair until 16:30. O2 sats 90-92% on 3 L NC. Instructed in incentive spirometry use. Pt using good technique, but only achieving max volume of 600 ml. I.S. does induce cough, but is not productive. Pt denied pain, saying he just feels lousy. Denies nausea. NGT to LIS with light bilous fluid.
[2019-07-25] VITALS (9 sets, daily range): BP systolic 127–148; BP diastolic 60–74; PULSE 59–67; RESP 14–37; TEMP 36.7–37.8; O2SAT 93–94
[2019-07-25] MEDS: PIPERACILLIN-TAZO 3.375 GM/50 ML FROZ.PIGGY IV ×4 (04:06→23:22)
[2019-07-25 06:10] LABS: Add Manual Diff / Slide Review NO; Basophils Absolute Auto 0 /uL (0-100); Basophils Percent Auto 0.2 % (0-2); Eosinophils Absolute Auto 100 /uL (0-450); Hematocrit 29.2 % (41-53); Hemoglobin 9.9 g/dL (13.5-17.5); Lymphocytes Absolute Auto 600 /uL (1100-4500); Lymphocytes Percent Auto 8.3 % (25-40); Mean Corpuscular HGB Conc 33.8 % (30-36); Mean Corpuscular Hemoglobin 32.3 PG (26-34); Mean Corpuscular Volume 95.6 fL (80-100); Monocytes Absolute Auto 400 /uL (0-900); Monocytes Percent Auto 5.3 % (3-14); Neutrophils Absolute Auto 6700 /uL (1500-7000); Neutrophils Percent Auto 85.2 % (50-75); Platelet Count 152 X10^3/uL (150-400); Red Blood Cell Count 3.05 X10^6/uL (4.5-5.9); Red Cell Distribution Width 13.9 % (11.6-14.8); White Blood Cell Count 7.8 X10^3/uL (4.5-11.0)
[2019-07-25 06:16] LABS: Magnesium 2.4 mg/dL (1.6-2.3)
[2019-07-25 06:17] LABS: Alanine Aminotransferase 23 IU/L (21-72); Albumin 2.4 g/dL (3.5-5.0); Alkaline Phosphatase 52 U/L (38-126); Aspartate Aminotransferase 19 IU/L (17-59); BUN Creatinine Ratio 23.3 (6-22); Bilirubin Total 0.9 mg/dL (0.2-1.3); Blood Urea Nitrogen 21 mg/dL (9-20); Calcium 7.6 mg/dL (8.4-10.2); Carbon Dioxide 30 mmol/L (22-32); Chloride 113 mmol/L (98-107); Estimated Glomerular Filt Rate > 60.0 mL/min (>60); Globulin 2.5 g/dL (1.7-4.1); Glucose 117 mg/dL (80-110); HEMOLYSIS < 15 (0-50); Potassium 3.6 mmol/L (3.4-5.1); Sodium 146 mmol/L (137-145); Total Protein 4.9 g/dL (6.3-8.2)
--- NOTE | 2019-07-25 06:18 | PC.NURSE ---
Patient is having smears of yellow/cui stools, small amount of flatus, denies nausea, NGT to LIS with 325ml thin bile fluid, taking in ice chips as well, denies pain. SB/SR, VSS, SpO2 >93% on 3L NC, breath sounds diminished, has dry intermittent cough. CBG 128 and 132.
[2019-07-25] MEDS: PANTOPRAZOLE 40 MG VIAL IV (09:30)
[2019-07-25] MEDS: ENOXAPARIN 40 MG/0.4 ML SYRINGE SUBCUT (09:31)
[2019-07-25] MEDS: DEXTROSE 5%-NS W/KCL 20MEQ 1,000 ML 80 MEQ IV (12:15)
--- NOTE | 2019-07-25 13:56 | CM.DPC ---
DCP Cont: Was able to meet with patient and , Carson. Confirmed that patient has been active and independent at home. Him and his live in [place]. Introduced self and role. Discussed discharge planning with patient and spouse. He still has NG tube at this time. Discussed options, such as snf, as well as home health. Gave the Medicare Choice List. She was stating, she heard good things about [facility], for her friend's family member is there. She is aware that patient will need to have bowel function restored, as well as NG tube Dc'd before discharge. Patient does not have P.T. orders now, but is encouraged by surgeon for patient to ambulate as much as possible. Patient is alert and oriented. Went ahead and gave discharge planning's phone number. She is aware that Sandra will be working tomorrow. is aware of options, and will see how patient does here on a medical basis. He was extubated a couple of days ago. P: DCP to continue to follow closely. and patient are aware of options as well. Noemy Ewing RN/Healthcare Liaison
[2019-07-25] MEDS: ACETAMINOPHEN 650 MG SUPP PR (21:07)
--- NOTE | 2019-07-25 23:13 | PM.PNPO.1 ---
Subjective Subjective Date Patient Seen: 07/25/19 Time Patient Seen: 09:13 Interval history: The patient is a gentleman who had an exploratory laparotomy for small-bowel obstruction due to adhesions. Feeling a little better. Still weak. Had multiple bowel movements earlier. Loose. Exam Vital Signs (past 8 hours): - 07/25/19 16:00 07/25/19 20:00 07/25/19 20:25 Temperature 98.2 F 100.0 F H Pulse Rate 67 63 Respiratory Rate 20 20 Blood Pressure 143/68 H 136/60 Pulse Oximetry 93 93 94 07/25/19 21:07 Temperature 100 F H Pulse Rate Respiratory Rate Blood Pressure Pulse Oximetry Fraction of Inspired Oxygen 30 Oxygen Delivery Method Nasal Cannula Oxygen Flow Rate 3 Narrative Exam Narrative: Cooperative no apparent distress. Improved respiration but still not quite up to par. Decreased breath sounds in the bases. Heart no murmur appreciated. Abdomen is mildly distended and soft. Midline is intact. No cellulitis. Objective Labs Result Diagrams: 07/25/19 05:30 07/25/19 05:30 Labs: Laboratory Results - last 24 hr 07/25/19 07/25/19 07/25/19 05:30 05:30 05:30 WBC 7.8 RBC 3.05 L Hgb 9.9 L Hct 29.2 L MCV 95.6 MCH 32.3 MCHC 33.8 RDW 13.9 Plt Count 152 Neut % (Auto) 85.2 H Lymph % (Auto) 8.3 L [place] % (Auto) 5.3 Eos % (Auto) 1.0 L Baso % (Auto) 0.2 Neut # (Auto) 6700 Lymph # (Auto) 600 L [place] # (Auto) 400 Eos # (Auto) 100 Baso # (Auto) 0 Sodium 146 H Potassium 3.6 Chloride 113 H Carbon Dioxide 30 BUN 21 H Creatinine 0.90 Estimated GFR > 60.0 BUN/Creatinine Ratio 23.3 H Glucose 117 H Calcium 7.6 L Magnesium 2.4 H Total Bilirubin 0.9 AST 19 ALT 23 Alkaline Phosphatase 52 Total Protein 4.9 L Albumin 2.4 L Globulin 2.5 Albumin/Globulin Ratio 1.0 Assessment & Plan Post-op Postoperative Procedures: Procedures Operation Date: 07/22/19 07:45 Actual Procedures Side Surgeon p Exploratory Laparotomy GEN, small bowel resection Scooby Griggs MD Postoperative status narrative: Slowly improving. Continue to mobilize in deep brief. Postoperative plan narrative: Will remove his NG tube at this time. This should help his breathing as well as improve his ambulation. Also we can remove his Melara. Will resume his tamsulosin. Quality VTE Deep Vein Thrombosis/Pulmonary Embolism Present on Admission: No
[2019-07-26] VITALS (11 sets, daily range): BP systolic 109–151; BP diastolic 42–64; PULSE 57–77; RESP 16–32; TEMP 36.6–37.6; O2SAT 90–95
[2019-07-26] MEDS: TAMSULOSIN 0.4 MG CAPSULE PO ×2 (00:15→09:53)
[2019-07-26] MEDS: DEXTROSE 5%-NS W/KCL 20MEQ 1,000 ML 80 MEQ IV (01:42)
[2019-07-26] MEDS: PIPERACILLIN-TAZO 3.375 GM/50 ML FROZ.PIGGY IV ×3 (03:56→16:11)
[2019-07-26] MEDS: ACETAMINOPHEN 650 MG SUPP PR (04:03)
[2019-07-26 04:57] LABS: Add Manual Diff / Slide Review NO; Basophils Absolute Auto 100 /uL (0-100); Basophils Percent Auto 0.6 % (0-2); Eosinophils Absolute Auto 100 /uL (0-450); Eosinophils Percent Auto 0.6 % (2-4); Hematocrit 30.3 % (41-53); Hemoglobin 10.2 g/dL (13.5-17.5); Lymphocytes Absolute Auto 700 /uL (1100-4500); Lymphocytes Percent Auto 6.8 % (25-40); Mean Corpuscular HGB Conc 33.7 % (30-36); Mean Corpuscular Hemoglobin 32.4 PG (26-34); Monocytes Absolute Auto 600 /uL (0-900); Monocytes Percent Auto 5.6 % (3-14); Neutrophils Absolute Auto 8900 /uL (1500-7000); Neutrophils Percent Auto 86.4 % (50-75); Platelet Count 160 X10^3/uL (150-400); Red Blood Cell Count 3.16 X10^6/uL (4.5-5.9); Red Cell Distribution Width 13.5 % (11.6-14.8); White Blood Cell Count 10.3 X10^3/uL (4.5-11.0)
[2019-07-26 05:03] LABS: Alanine Aminotransferase 24 IU/L (21-72); Albumin 2.3 g/dL (3.5-5.0); Albumin Globulin Ratio 0.9 (1.0-2.8); Alkaline Phosphatase 50 U/L (38-126); Aspartate Aminotransferase 21 IU/L (17-59); BUN Creatinine Ratio 27.1 (6-22); Blood Urea Nitrogen 19 mg/dL (9-20); Calcium 7.6 mg/dL (8.4-10.2); Carbon Dioxide 30 mmol/L (22-32); Chloride 114 mmol/L (98-107); Estimated Glomerular Filt Rate > 60.0 mL/min (>60); Globulin 2.7 g/dL (1.7-4.1); Glucose 106 mg/dL (80-110); HEMOLYSIS < 15 (0-50); Potassium 3.4 mmol/L (3.4-5.1); Sodium 149 mmol/L (137-145)
[2019-07-26 05:20] LABS: Magnesium 2.3 mg/dL (1.6-2.3)
--- NOTE | 2019-07-26 09:49 | PC.NURSE ---
PT HESITANT TO DO MUCH INDEPENDENTLY- AFTER MUCH PERSUASION AND NEGOTIATIONS PT WAS AGREEABLE TO SIT ON EDGE OF BED AND THEN TRANSFER TO BSC AND THEN CHAIR- HE DECLINED HAVING NURSE ADJUSTING OXYGEN - BUT I TURNED IT DOWN TO 2L NC WITHOUT PT CONSENT AND THEN TO ROOM AIR PT'S RA SPO2 96% USING I-S BETTER WHILE UP IN CHAIR, DOES NOT TAKE DIRECTION FROM STAFF WELL BUT WHEN HE ACTUALLY GETS UP TO MOVE HE DOES BETTER THAN ANTICIPATED- HE IS ASSIST X 1 ALTHOUGH HE PREFERS/DEMANDS X 2 STAFF MEMBERS
[2019-07-26] MEDS: ENOXAPARIN 40 MG/0.4 ML SYRINGE SUBCUT (09:52)
[2019-07-26] MEDS: PANTOPRAZOLE 40 MG VIAL IV (09:53)
[2019-07-26] MEDS: CYANOCOBALAMIN 1,000 MCG/ML VIAL 1000 MCG IM (10:10)
--- NOTE | 2019-07-26 11:55 | PM.PNPO.1 ---
Subjective Subjective Date Patient Seen: 07/26/19 Time Patient Seen: 11:55 Interval history: No acute interval events. Having bowel movements and flatus no nausea or vomiting fever. Incisional pain well controlled Exam Vital Signs (past 8 hours): - 07/26/19 07:47 07/26/19 08:41 07/26/19 09:36 Temperature 99.3 F 98.7 F Pulse Rate 61 Respiratory Rate 32 H Blood Pressure 136/62 Pulse Oximetry 94 95 Fraction of Inspired Oxygen 30 Oxygen Delivery Method Nasal Cannula Oxygen Flow Rate 3 Narrative Exam Narrative: General adult male alert oriented no acute distress Abdomen soft compressible incision clean dry intact Objective Labs Result Diagrams: 07/26/19 04:45 07/26/19 04:45 Labs: Laboratory Results - last 24 hr 07/26/19 07/26/19 07/26/19 04:45 04:45 04:45 WBC 10.3 RBC 3.16 L Hgb 10.2 L Hct 30.3 L MCV 96.0 MCH 32.4 MCHC 33.7 RDW 13.5 Plt Count 160 Neut % (Auto) 86.4 H Lymph % (Auto) 6.8 L [place] % (Auto) 5.6 Eos % (Auto) 0.6 L Baso % (Auto) 0.6 Neut # (Auto) 8900 H Lymph # (Auto) 700 L [place] # (Auto) 600 Eos # (Auto) 100 Baso # (Auto) 100 Sodium 149 H Potassium 3.4 Chloride 114 H Carbon Dioxide 30 BUN 19 Creatinine 0.70 Estimated GFR > 60.0 BUN/Creatinine Ratio 27.1 H Glucose 106 Calcium 7.6 L Magnesium 2.3 Total Bilirubin 1.0 AST 21 ALT 24 Alkaline Phosphatase 50 Total Protein 5.0 L Albumin 2.3 L Globulin 2.7 Albumin/Globulin Ratio 0.9 L Assessment & Plan Post-op Postoperative Procedures: Procedures Operation Date: 07/22/19 07:45 Actual Procedures Side Surgeon p Exploratory Laparotomy GEN, small bowel resection Scooby Griggs MD Postoperative day: 4 Postoperative status narrative: 46-[id number] day 4 status post lysis of adhesions and small-bowel resection for small-bowel obstruction. Has return of bowel function. -full liquid diet -SCDs and pLovenox for VTE prophylaxis -Physical therapy consult will likely require rehab -Potassium replacement and change IVF to D5 1/2 NS - Quality VTE Deep Vein Thrombosis/Pulmonary Embolism Present on Admission: No
--- NOTE | 2019-07-26 12:00 | DIET.PN ---
Dietary Progress Note Assessment: Mr. Espinoza is seen for dietary follow up. He has been NPO x 6 days. He is S/P x 4d Small Bowel Resection. DO was just advanced to Full Liquid. HT: 182.8cm WT: 69.4kg BMI: 20.8 Labs: na: 149 Chl: 114 Alb: 2.3 MNA: 12 Ming: 18 Nutrition Diagnosis: Inadequate energy intake r/t inability to consume sufficient energy aeb pt DO NPO x 6 d r/t SBO w/ N/V. Interventions: 1. Discussed diet change to full liquid. Expressed importance of slow transition in DO as pt has been NPO x 1 wk. Pt agreeable. 2. Pt requests ONS vanilla smoothie w/ lunch. Will discuss w/ diet staff. Diet Order: Full Liquid EER: 2000 shiloh @ 30 shiloh/kg Pro: 85 g @ 1.2g/kg Monitoring/Evaluations: Wt, PO's, diet advance tolerance.
[2019-07-26] MEDS: MIRABEGRON 50 MG 50 EACH PO (12:35)
[2019-07-26] MEDS: ACETAMINOPHEN 325 MG TABLET 650 MG PO ×2 (12:36→19:55)
[2019-07-26] MEDS: POTASSIUM PHOSPHATE 15 MMOL in DEXTROSE 5% IN WATER 250 ML 63.75 ML IV (12:37)
[2019-07-26] MEDS: DEXTROSE 5%-0.45% NS 1,000 ML 84 ML IV (12:39)
--- NOTE | 2019-07-26 13:57 | CM.DPC ---
DCP; continued: case received, EMR for last few days reviewed and met with pt and his Carson. Pt is progressing in his recovery from surgery. PT is ordered now and RN Maira Grover plans to obtain an OT order. Carson confirms that the discussion for snf level rehab/recovery stay was started with Obed Salguero and that decision of choice is [facility]. Referral: given: [facility]: accepts with addendum that the medication pt has brought from home and is being used now while pt is in the hospital: Mirabegron be also brought to [facility] as it is fincially not manageable for the snf setting under current Medicare reimbursement rates. Will update pt and Carson. Do not at this time anticipate a problem with this. PASRR: needed. P: [facility] when stable for same.
[2019-07-26] MEDS: TRAMADOL 50 MG TABLET PO ×2 (14:24→22:10)
--- NOTE | 2019-07-26 16:18 | PC.NURSE ---
Addendum entered by Angle Rivera R.N. 07/26/19 22:28: 2200 - Pt awake after soundly sleeping. Discussed pain control, HS meds and pending discharge. Pt agreeable to discharge tomorrow, however able to express reservations with changing locations, I know all the rules here now, I don't know the rules over there. Educated to advanced diet for breakfast. Assisted with meal ordering. Reinforced safety and call light use. Call light in reach. Addendum entered by Angle Rivera R.N. 07/26/19 19:49: 1945 - Pt reports feeling fatigued. Agreeable to ambulate prior to returning to bed. Ambulate in the zeng and [place] [facility] mild weakness. Reinforced safety. Assist back to bed. Requesting APAP for pain, given crushed in applesauce per pt request. Call light in reach. Original Note: 3355 - Discussed activity, diet and breathing with pt. Agreeable to get up to chair for meal. but I want to rest first. Pt requesting lactose free milk, call placed to dietary. Pt reports pain controlled at rest. Denies nausea. Call light in reach.
[2019-07-27 03:42] VITALS: TEMP 37.9
[2019-07-27] MEDS: ACETAMINOPHEN 325 MG TABLET 650 MG PO (03:42)
[2019-07-27 03:43] VITALS: BP 135/56; PULSE 76; RESP 16; TEMP 37.9; O2SAT 94
[2019-07-27 07:15] VITALS: BP 110/51; PULSE 65; RESP 18; TEMP 37.5; O2SAT 92
[2019-07-27 07:43] VITALS: O2SAT 92
--- NOTE | 2019-07-27 08:28 | CM.DPNOTE ---
Addendum entered by Sandra Qureshi LPN 07/27/19 11:04: All is now set for [facility]. Confirmed with /March that they can keep pt's lactose free dairy products in their refrigerator and freezer. Carson is here and updated re details. PT and OT did not have a chance to see pt yesterday. Discussion with OT Shanda indicates they will defer to the snf therapy team as he is leaving soon. Pt has been up in the bedside chair and feels able to manage w/c van transport. Addendum entered by Sandra Qureshi LPN 07/27/19 08:39: Was able to track Dr. Griggs down and spoke with his nurse. Dr. Griggs is in surgery, is now updated re the [facility] specifics. He plans complete the snf order specifics when he is finished with surgery, likely sometime late morning. Original Note: DCP: continued: Notified by team that Dr. Griggs was here at about 0715 and stated pt is ready for d/c to snf setting if this is set up. Unclear if he has gone back to clinic or is in surgery...will find out. March/[facility] is notified via and at this point will plan tentative [id number] transport via [facility] w/c van. PASRR: will complete, fax to [facility], place to snf packet and give copy to [facility] to scan. Will update JADIEL Nick and pt/spouse. Will also follow up on the Mirabegron home medication. P: [facility] today as per above
[2019-07-27] MEDS: ENOXAPARIN 40 MG/0.4 ML SYRINGE SUBCUT (09:27)
[2019-07-27] MEDS: DOCUSATE 100 MG CAPSULE PO (09:27)
[2019-07-27] MEDS: PANTOPRAZOLE 40 MG VIAL IV (09:27)
[2019-07-27] MEDS: MIRABEGRON 50 MG 50 EACH PO (09:27)
[2019-07-27] MEDS: TAMSULOSIN 0.4 MG CAPSULE PO (09:28)
--- NOTE | 2019-07-27 09:45 | PM.DS.1 ---
History of Present Illness History of Present Illness Chief complaint: BLOCKED UP VOMITING Narrative: A 78-year-old male with a previous low anterior resection for rectal cancer presents with a small-bowel obstruction. He felt abdominal distension associated with some nausea and emesis yesterday and presented to the emergency room. He underwent a CT that shows a small-bowel obstruction with possible transition point in the mid abdomen. And he was afebrile without leukocytosis or peritonitis. Multiple attempts were made to place the NG tube which was unsuccessful. His nausea is significantly improved and he is having some small bowel movements no flatus and has had no episodes of emesis since admission. No previous history of small-bowel obstruction. Surgical history is notable only for low anterior resection through a midline laparotomy. Discharge Providers Provider Date of admission: 07/20/19 17:27 Discharge Date: 07/27/19 Primary care physician: Damian Tipton MD Consults: 07/23/19 09:47 Consult to Dietitian, Adult Routine Comment: Reason For Exam: Patient on Ventilator and NPO 07/23/19 20:13 Consult to Dietitian, Adult Routine Comment: Reason For Exam: high risk. Currently NPO. Please follow. 07/26/19 11:37 Consult to Physical Therapy Evaluate & Treat Comment: Physician Instructions: Evaluate and Treat 07/26/19 15:29 Consult to Occupational Therapy Evaluate & Treat Comment: Physician Instructions: Evaluate and treat 07/27/19 09:32 Consult to Occupational Therapy Evaluate & Treat Comment: Physician Instructions: Evaluate and treat Consult to Physical Therapy Evaluate & Treat Comment: Physician Instructions: Evaluate and Treat Discharge provider: Scooby Griggs MD Summary Hospital Course Discharge Diagnosis: Small-bowel obstruction Acute respiratory failure Aspiration pneumonia Hospital Course: 78-year-old male with history of low anterior resection presented with a small-bowel obstruction. Non operative management was initially attempted however he failed to progress. A small bowel follow through demonstrated no transit of contrast into the colon. He aspirated some small bowel content and required ventilation for acute respiratory failure secondary to aspiration pneumonia. He underwnt exploratory laparotomy,lysis of adhesion and small bowel resection. He recovered well from the aspiration pneumonia and was extubated without difficulty. His diet was advanced as tolerated on the day of discharge he is breathing well on room air tolerating a regular diet with return of bowel function. At this time he is stable for discharge. Status at Discharge Cognitive/behavioral status at discharge: oriented Overall status at discharge: patient is not back to baseline Time Spent with Patient Time spent: Greater than 30 minutes Exam Vital Signs (past 8 hours): - 07/27/19 03:42 07/27/19 03:43 07/27/19 07:15 Temperature 100.2 F H 100.2 F H 99.5 F Pulse Rate 76 65 Respiratory Rate 16 18 Blood Pressure 135/56 L 110/51 L Pulse Oximetry 94 92 07/27/19 07:43 Temperature Pulse Rate Respiratory Rate Blood Pressure Pulse Oximetry 92 Fraction of Inspired Oxygen 30 Oxygen Delivery Method Room Air,Nasal Cannula Oxygen Flow Rate 0 Narrative Exam Narrative: General adult male layered oriented no acute distress Chest nonlabored respirations no audible wheezes Abdomen soft nontender incision clean dry intact with toño. Objective Labs Result Diagrams: 07/26/19 04:45 07/26/19 04:45 Discharge Plan Discharge Plan Transfer to: [facility] Discharge Med Rec/Prescriptions Prescriptions: New tramadol 50 mg Tablet 50 mg PO QID PRN (Reason: Pain, Moderate (4-6)) Qty: 40 RF: 0 Continued tamsulosin 0.4 mg Capsule 0.4 mg PO DAILY RF: 0 Myrbetriq 50 mg Tablet Extended Release 24 Hr 50 mg PO DAILY RF: 0 cyanocobalamin (vitamin B-12) 1,000 mcg/mL solution 1,000 mcg IM QMONTH RF: 0 Follow up/Referrals: Damian Tipton MD [Primary Care Provider] - Scooby Griggs MD [Physician] - Discharge Orders: Discharge (Order); Ordered 07/27/19 Ordered By: Scooby Griggs Provider Discharge Instructions Diet: Diet as Tolerated Activity: No lifting >20 lbs x 4 weeks. No driving while taking narcotics. Discharge Data Primary Care Provider: Damian Tipton Quality VTE Deep Vein Thrombosis/Pulmonary Embolism Present on Admission: No
--- NOTE | 2019-07-27 10:55 | OT.IP.TRT ---
Current Diagnoses Unspecified intestinal obstruction, unspecified as to partial versus complete obstruction (07/20/19) Hypoxemia (07/20/19) Unspecified foreign body in other parts of respiratory tract causing asphyxiation, initial encounter (07/20/19) Surgery Performed Operation Date: 07/22/19 07:45 Actual Procedures p Exploratory Laparotomy GEN, small bowel resection - Scooby Griggs MD Occupational Therapy Treatment Note M3 OT- IP Subjective and Pain Start: 07/27/19 09:35 Freq: Status: Active Protocol: Document 07/27/19 10:58 SAYDA (Rec: 07/27/19 11:01 BRUNILDA [id number]) OT- Subjective Occupational Therapy Visit Type Type Administrative Note Visit Start Time 10:55 Notes OT referral received. Per case therapist, pt to d/c to [facility] today so will defer OT evaluation to SNF. No charge.
--- NOTE | 2019-07-27 11:18 | PT.IIE ---
Current Diagnoses Unspecified intestinal obstruction, unspecified as to partial versus complete obstruction (07/20/19) Hypoxemia (07/20/19) Unspecified foreign body in other parts of respiratory tract causing asphyxiation, initial encounter (07/20/19) Surgery Performed Operation Date: 07/22/19 07:45 Actual Procedures p Exploratory Laparotomy GEN, small bowel resection - Scooby Griggs MD Medical History (Last Reviewed 07/21/19 @ 10:12 by Scooby Griggs MD) Colon cancer (Acute) Physical Therapy Inpatient Evaluation/Re-Eval M1 PT/OT-IP Prior Functional Status Start: 07/26/19 14:40 Freq: NEEDED Status: Active Protocol: Document 07/27/19 11:18 AB (Rec: 07/27/19 12:28 AB [email or web address]) Medical Review Prior Functional Status Medical History Reviewed Yes Communication able to make needs known Mobility and Gait pt stated that he was independent with all mobilities and ambulation without AD but spouse stated that pt needed a FWW for support for initial standing but ambulates without AD Social History Household Members spouse Living Arrangements House Number of Floors (Floors) Two Floors Number of Stairs To Enter/Railing? stays on main level has 1 step to enter Home Environment Standard Height Toilet,Walk in Shower Home Equipment Front Wheel Walker M2 PT-IP Current Condition Start: 07/26/19 14:40 Freq: NEEDED Status: Active Protocol: Document 07/27/19 11:18 AB (Rec: 07/27/19 12:28 AB [id number]) Physical Therapy Current Condition Current Condition Evaluation Date 07/27/19 Treatment Diagnosis SBO s/p ex-lap & lysis of adhesions; difficulty in walking Onset Date 07/20/19 Precautions Abdominal Surgery Precautions Log Roll,Lifting Restrictions, Gait Belt above Incisional Area M3 PT-IP Subjective Start: 07/26/19 14:40 Freq: NEEDED Status: Active Protocol: Document 07/27/19 11:18 AB (Rec: 07/27/19 12:28 AB [email or web address]) Subjective Physical Therapy Visit Type Type Initial Evaluation Visit Start Time 11:18 Visit Stop Time 11:35 Total Visit Minutes 17 Number of SENIOR VISUAL DESIGNER Visits 0 Physical Therapy Visit Comments Patient Comments pt agreed to do PT M4 PT-IP Mobility and Gait Start: 07/26/19 14:40 Freq: NEEDED Status: Active Protocol: Document 07/27/19 11:18 AB (Rec: 07/27/19 12:28 AB [email or web address]) PT-Bed Mobility Assessment Rolling Type of Rolling Log Rolling Level of Assist Minimal Assistance Supine to Sit Supine to Sit Minimal Assistance Scooting Scooting to Edge of Bed Minimal Assistance PT-Transfer Assessment Sit to and From Stand Sit to and from Stand Moderate Assistance,Maximum Assistance,1 Person Assistance ,Use of Upper Extremities Equipment Transfer Assistive Device Bed Rail,Front Wheeled Walker Orthotic/Prosthetic Devices or Brace: No Transfers Transfer Destination Chair,Bedside Commode Transfer Technique Stand Step Pivot Transfer Ability Level of Assist Moderate Assistance,1 Person Assistance,Use of Upper Extremities Comments Mobility Comments pt completed bed mobility log roll supine to sit min A and cues. pt was able to sit on EOB SBA. completed sit to stand mod to max A and cues. pt was able to transfer using FWW mod A and cues. pt requested to use the toilet. positioned bedside commode. pt completed sit to stand from the chair mod to max A and pt was able to take steps using FWW mod A to the commode. left pt on the commode. call light next to pt. in room . nurse aware. Gait Assessment Gait Gait Assistance Required: Moderate Assistance,1 Person Assist Distance (Feet) 2 Able to Maintain Weight Bearing Status Yes During Gait Assistive Devices Assistive Device Gait Belt,Front Wheeled Walker Orthotic/Prosthetic Devices or Brace: No Gait Deviations General Gait Pattern Decreased Stride Length, Decreased Feet Clearance Factors Limiting Gait Function Factors Limiting Gait Function Decreased Activity Tolerance, Decreased Strength,Poor Balance,Poor Safety Awareness Comments Gait Comments able to take steps using FWW chair to bedside commode ~ 2 ft mod A and cues. PT-Balance Assessment Sitting Balance and Reactions Static Sitting Balance Ability Good Dynamic Sitting Balance Ability Good Standing Balance and Reactions Static Standing Balance Ability Fair Dynamic Standing Balance Ability Poor Device Used FWW M5 PT-IP Objective Assessments Start: 07/26/19 14:40 Freq: NEEDED Status: Active Protocol: Document 07/27/19 11:18 AB (Rec: 07/27/19 12:28 AB [email or web address]) Orientation Orientation/Cognition Level of Alertness Alert Orientation Name,Situation Safety Awareness Decreased Safety Awareness Gross Range of Motion Lower Extremity ROM Assessment Within Functional Limits Strength Lower Extremity Strength Assessment Bilaterally Impaired Comments Strength Comments RLE: 3+/5 LLE: 4-/5 Coordination Assessment Gross Coordination Gross Coordination WNL Sensation Assessment Sensation Gross Sensation WNL Muscle Tone Muscle Tone WNL Yes M6 PT-IP Treatment Start: 07/26/19 14:40 Freq: NEEDED Status: Active Protocol: Document 07/27/19 11:18 AB (Rec: 07/27/19 12:28 AB [email or web address]) Physical Therapy Treatment Education Education Provided Precautions,Safety M7 PT-IP Assessment and Plan Start: 07/26/19 14:40 Freq: NEEDED Status: Active Protocol: Document 07/27/19 11:18 AB (Rec: 07/27/19 12:28 AB [email or web address]) PT Summary Assessment and Plan Potential Rehabilitation Potential Good Status of Condition at Evaluation Stable Summary Impairments Pain,ROM,Strength,Balance, Coordination,Sensation,Tone, Cognition,Bed Mobility, Transfers,Gait,Activity Tolerance Assessment Summary pt requiring mod to max A for sit to stand and mod A for transfers using FWW. pt presents with weakness and decrease activity tolerance. pt will benefit from SNF rehab . Goals Bed Mobility Goal Standby Assistance Transfer Goal Standby Assistance,Front Wheeled Walker Gait Goal Standby Assistance,Front Wheel Walker Gait Distance 50 Other Goals up/down 1 steps using FWW CGA Days to Meet Goals 10 Frequency of Treatment Frequency Of Treatment Once a Day Treatment Plan Physical Therapy Treatment Plan Bed Mobility Training,Transfer Training,Gait Training, Therapeutic Exercise,Balance Retraining,Post Op Education, Discharge Planning,Hot or Cold Pack,Neuromuscular Re-ed, Coordination Retraining,Manual Therapy Other Recommendations and Next Treatment ambulation Focus Recommendations To Nursing Amount of Assist Needed 1 Person Assist Discharge Recommendations PT Discharge Recommendations SNF Rehab
== END 2019-07-27 13:35 | DRG 329 ==
LOC: ED 17:27 → AC 17:27 → ICU 07-22 07:12
PROVIDERS: Specialist; Surgery; Admitting Provider Surgery; Emergency Provider Emergency Medicine; PCP Internal Medicine; Visit Provider Surgery
PROC: 5A1945Z Respiratory Ventilation, 24-96 Consecutive Hours (ICD-10-PCS; CPT 49000; principal; 2019-07-22 07:45)
DX: K56.609 Unspecified intestinal obstruction, unspecified as to partial versus complete obstruction (principal); J69.0 Pneumonitis due to inhalation of food and vomit; J96.01 Acute respiratory failure with hypoxia; D62 Acute posthemorrhagic anemia; D51.0 Vitamin B12 deficiency anemia due to intrinsic factor deficiency
CPT/HCPCS: 36415; 36569; 36592; 36600; 49000; 71045; 74177; 74250; 80048; 80053; 82805; 82962; 83605; 83690; 83735; 84100; 85025; 87070; 87077; 87205; 87797; 93005; 93010; 94002; 94003; 94010; 94760; 94762; 94770; 94799; 96361; 96374; 96375; 97161; 99232; 99283; 99285; C9113; J1642; J1650; J1720; J2270; J2405; J2543; J2704; J3010; J3420; J3480; Q9967

== ENCOUNTER 2019-09-18 10:26 | Emergency (ER) | payer MEDICARE, OTHER, SELFPAY ==
[2019-07-23 09:39] VITALS: PULSE 76; RESP 14; O2SAT 95
[2019-07-24 10:23] VITALS: BMI 20.8
[2019-09-18 10:43] VITALS: BP 132/85; PULSE 79; RESP 18; TEMP 36.9; O2SAT 100; BMI 18.3
[2019-09-18] MEDS: SODIUM CHLORIDE 0.9% 1,000 ML 150 ML IV (11:33)
--- NOTE | 2019-09-18 11:52 | ED_ITS ---
HPI - Nausea/Vomiting/Diarrhea General Chief complaint: Nausea/Vomiting/Diarrhea Stated complaint: anorexia/diarrhea Time Seen by Provider: 09/18/19 10:58 Source: patient and family Mode of arrival: Wheelchair Limitations: no limitations History of Present Illness HPI Narrative: Patient is 78-year-old male who presents with increased weakness persistent diarrhea and was instructed by home health care nurse to come and be evaluated for dehydration. He has history of small-bowel obstruction in June, he required postoperative intubation due to possible aspiration of gastric contents. He was discharged to a nursing facility and eventually home. He states that ever since then he has had persistent diarrhea multiple times a day and constant state of nausea. He has significant decreased in appetite not eating or drinking much. Seen and evaluated by home nursing staff today thought to be severely dehydrated and told to come to the emergency department. He was seen by GI this week who ordered a stool sample however they were not able to get it at that time. He denies any abdominal pain or vomiting MD complaint: nausea and diarrhea Related Data Home Medications Medication Instructions Recorded Confirmed Myrbetriq 50 mg PO DAILY 11/11/18 08/18/19 tamsulosin 0.4 mg PO DAILY 11/11/18 08/18/19 cyanocobalamin (vitamin B-12) 1,000 mcg IM QMONTH 07/20/19 08/18/19 Lactobacillus acidophilus 10 mg PO DAILY 08/18/19 08/18/19 acetaminophen 650 mg 650 mg PO Q8H PRN 08/18/19 08/18/19 tablet,extended release bisacodyl 5 mg tablet 5 mg PO BEDTIME PRN 08/18/19 08/18/19 bisacodyl 5 mg tablet,delayed 5 mg PO ONCE PRN 08/18/19 08/18/19 release cephalexin 500 mg capsule 500 mg PO QID 08/18/19 08/18/19 loperamide 2 mg capsule 2 mg PO Q4H PRN 08/18/19 08/18/19 magnesium hydroxide 311 mg 311 mg PO BEDTIME PRN 08/18/19 08/18/19 chewable tablet melatonin 3 mg capsule 3 mg PO BEDTIME PRN 08/18/19 08/18/19 mineral oil 118 ml TN ONCE PRN 08/18/19 08/18/19 potassium chloride 10 mEq 10 meq PO DAILY 08/18/19 08/18/19 tablet,extended release Previous Rx's Medication Instructions Recorded tramadol 50 mg PO QID PRN #40 tab 07/27/19 ondansetron 4 mg PO Q8H PRN #14 tab 09/18/19 ranitidine HCl 150 mg PO BID PRN #20 tab 09/18/19 Allergies Allergy/AdvReac Type Severity Reaction Status Date / Time No Known Drug Allergies Allergy Verified 08/18/19 10:25 Review of Systems Review of Systems ROS Unobtainable: All systems reviewed & are unremarkable except as noted in HPI and below Constitutional Constitutional: Reports anorexia, Reports fatigue, Denies frequent falls and Reports poor appetite ENT Ears, Nose, Mouth, and Throat: Denies change in voice, Denies dizziness, Denies neck pain and Denies sore throat Cardiovascular Cardiovascular: Denies chest pain, Denies irregular heart rhythm, Denies lightheadedness, Denies palpitations, Denies dyspnea, Denies dyspnea on exertion and Denies orthopnea Respiratory Respiratory: Denies cough, Denies dyspnea, Denies dyspnea on exertion and Denies wheezing Gastrointestinal Gastrointestinal: Reports as per HPI Genitourinary Genitourinary: Denies hematuria, Denies flank pain, Denies urinary incontinence and Denies urinary urgency Musculoskeletal Musculoskeletal: Denies neck pain and Denies numbness Integumentary/Breasts Skin/Breast: Denies pruritus, Denies erythema, Denies rash and Denies wounds Neurologic Neurologic: Denies behavioral changes, Denies confusion, Denies dizziness, Denies frequent falls and Denies numbness Psychiatric Psychiatric: Denies behavioral changes and Denies confusion Endocrine Endocrine: Reports fatigue and Denies palpitations Allergic/Immunologic Allergic/Immunologic: Denies wheezing Patient History Medical History Colon cancer (Acute) Social History household members: spouse Smoking Status: Unknown if ever smoked alcohol intake frequency: holidays/special occasions only Substance Use Type: does not use Exam Initial Vital Signs Initial Vital Signs: Vital Signs Temperature 98.5 F 09/18/19 10:43 Pulse Rate 79 09/18/19 10:43 Respiratory Rate 18 09/18/19 10:43 Blood Pressure 132/85 09/18/19 10:43 Pulse Oximetry 100 09/18/19 10:43 GENERAL: A thin cachectic frail elderly male and in no acute distress. HEENT: Head atraumatic,EOMI, pupils reactive, face symmetric, dry mucous membranes CARDIOVASCULAR: Regular rate and rhythm without murmurs, rubs or gallops. RESPIRATORY: Breath sounds equal bilaterally, no wheezes rales or rhonchi. ABDOMEN: Soft, scar noted on abdomen overall soft nontender decreased bowel sounds : No CVA tenderness EXTREMITIES: Normal range of motion, no clubbing or edema. Neurovascularly intact NEUROLOGICAL: Alert and oriented x4.Normal gait and speech. Cranial nerves II through XII grossly intact. SKIN: Warm, dry, no laceration, no petechiae, no rashes or lesions. Course Orders Ordered: ED Orders 09/18/19 12:05 Complete Blood Count AUTO DIFF Stat Comprehensive Metabolic Panel Stat Lactate (Lactic Acid) Stat Lipase Stat 09/18/19 12:34 GI Panel (Film Array) Stat Discontinued Medications Sodium Chloride (Normal Saline 0.9%) 1,000 mls @ 150 mls/hr IV CONT DEACON Last Infusion: 09/18/19 15:05 Dose: 0 mls/hr Documented by: Admin: 09/18/19 11:33 Dose: 150 mls/hr Documented by: NANO Ondansetron HCl (Zofran) 4 mg IV NOW ONE Stop: 09/18/19 12:07 Last Admin: 09/18/19 14:26 Dose: 4 mg Documented by: NANO Pantoprazole Sodium (Protonix) 40 mg IV NOW ONE Stop: 09/18/19 12:07 Last Admin: 09/18/19 14:26 Dose: 40 mg Documented by: NANO Potassium Chloride (Klor-Con M20) 40 meq PO NOW ONE Stop: 09/18/19 14:13 Last Admin: 09/18/19 14:25 Dose: 40 meq Documented by: NANO Vital Signs Vital signs: Vital Signs - 8 hr 09/18/19 10:43 09/18/19 12:12 09/18/19 13:00 Temperature 98.5 F Pulse Rate 79 80 77 Respiratory Rate 18 21 23 Blood Pressure 132/85 Blood Pressure [Left Arm] 124/75 121/73 Pulse Oximetry 100 99 98 09/18/19 13:33 09/18/19 14:46 09/18/19 15:46 Temperature Pulse Rate 81 71 80 Respiratory Rate 30 H 24 Blood Pressure 122/77 Blood Pressure [Left Arm] 121/71 116/72 Pulse Oximetry 98 100 98 MDM - Nausea/Vomiting/Diarrhea Lab Data Attestation: I reviewed the patient's lab results. Result diagrams: 09/18/19 12:05 09/18/19 12:05 Labs: Lab Results 09/18/19 09/18/19 09/18/19 Range/Units 12:05 12:05 12:05 WBC 6.3 (4.5-11.0) X10^3/uL RBC 3.53 L (4.5-5.9) X10^6/uL Hgb 11.0 L (13.5-17.5) g/dL Hct 32.4 L (41-53) % MCV 91.8 (80-100) fL MCH 31.2 (26-34) PG MCHC 34.0 (30-36) % RDW 15.7 H (11.6-14.8) % Plt Count 384 (150-400) X10^3/uL Neut % (Auto) 70.1 (50-75) % Lymph % (Auto) 19.2 L (25-40) % [place] % (Auto) 9.9 (3-14) % Eos % (Auto) 0.3 L (2-4) % Baso % (Auto) 0.5 (0-2) % Neut # (Auto) 4400 (8880-7479) /uL Lymph # (Auto) 1200 (9550-2440) /uL [place] # (Auto) 600 (0-900) /uL Eos # (Auto) 0 (0-450) /uL Baso # (Auto) 0 (0-100) /uL Sodium 135 L (137-145) mmol/L Potassium 2.8 L (3.4-5.1) mmol/L Chloride 100 (98-107) mmol/L Carbon Dioxide 23 (22-32) mmol/L BUN 20 (9-20) mg/dL Creatinine 0.80 (0.66-1.25) mg/dL Estimated GFR > 60.0 (>60) mL/min BUN/Creatinine Ratio 25.0 H (6-22) Glucose 75 L (80-110) mg/dL Lactate 0.9 (0.7-2.1) mmol/L Calcium 7.8 L (8.4-10.2) mg/dL Total Bilirubin 0.9 (0.2-1.3) mg/dL AST 25 (17-59) IU/L ALT 8 (<50) IU/L Alkaline Phosphatase 56 (38-126) U/L Total Protein 5.2 L (6.3-8.2) g/dL Albumin 2.7 L (3.5-5.0) g/dL Globulin 2.5 (1.7-4.1) g/dL Albumin/Globulin Ratio 1.1 (1.0-2.8) Lipase < 10 L (23-300) U/L Stl C. cayetanensis PCR (Not Detect) Stool Rotavirus (PCR) (Not Detect) Stool Adenovirus (PCR) (Not Detect) Stool Astrovirus (PCR) (Not Detect) Stool Cryptosporidium PCR (Not Detect) Stl E.coli Shiga Tox PCR (Not Detect) St Sh/Enteroin Ecoli PCR (Not Detect) Stool E coli O157 PCR Stl Enterotoxigenic E PCR (Not Detect) Stool EPEC (PCR) (Not Detect) Stl E. histolytica PCR (Not Detect) Stool Giardia Lamblia PCR (Not Detect) Stool Sapovirus (PCR) (Not Detect) Stl P. shigelloides PCR (Not Detect) St Y.enterocolitica PCR (Not Detect) Stool Vibrio (PCR) (Not Detect) Stl Vibrio cholerae PCR (Not Detect) Stl Enteroaggr Ecoli PCR (Not Detect) Stl Norovirus GI/GII PCR (Not Detect) Campylobacter (PCR) (Not Detect) C. difficile Tox (PCR) (Not Detect) Salmonella (PCR) (Not Detect) 09/18/19 Range/Units 12:34 WBC (4.5-11.0) X10^3/uL RBC (4.5-5.9) X10^6/uL Hgb (13.5-17.5) g/dL Hct (41-53) % MCV (80-100) fL MCH (26-34) PG MCHC (30-36) % RDW (11.6-14.8) % Plt Count (150-400) X10^3/uL Neut % (Auto) (50-75) % Lymph % (Auto) (25-40) % [place] % (Auto) (3-14) % Eos % (Auto) (2-4) % Baso % (Auto) (0-2) % Neut # (Auto) (6178-9411) /uL Lymph # (Auto) (6214-9475) /uL [place] # (Auto) (0-900) /uL Eos # (Auto) (0-450) /uL Baso # (Auto) (0-100) /uL Sodium (137-145) mmol/L Potassium (3.4-5.1) mmol/L Chloride (98-107) mmol/L Carbon Dioxide (22-32) mmol/L BUN (9-20) mg/dL Creatinine (0.66-1.25) mg/dL Estimated GFR (>60) mL/min BUN/Creatinine Ratio (6-22) Glucose (80-110) mg/dL Lactate (0.7-2.1) mmol/L Calcium (8.4-10.2) mg/dL Total Bilirubin (0.2-1.3) mg/dL AST (17-59) IU/L ALT (<50) IU/L Alkaline Phosphatase (38-126) U/L Total Protein (6.3-8.2) g/dL Albumin (3.5-5.0) g/dL Globulin (1.7-4.1) g/dL Albumin/Globulin Ratio (1.0-2.8) Lipase (23-300) U/L Stl C. cayetanensis PCR Not detected (Not Detect) Stool Rotavirus (PCR) Not detected (Not Detect) Stool Adenovirus (PCR) Not detected (Not Detect) Stool Astrovirus (PCR) Not detected (Not Detect) Stool Cryptosporidium PCR Not detected (Not Detect) Stl E.coli Shiga Tox PCR Not detected (Not Detect) St Sh/Enteroin Ecoli PCR Not detected (Not Detect) Stool E coli O157 PCR Not Reportable Stl Enterotoxigenic E PCR Not detected (Not Detect) Stool EPEC (PCR) Not detected (Not Detect) Stl E. histolytica PCR Not detected (Not Detect) Stool Giardia Lamblia PCR Not detected (Not Detect) Stool Sapovirus (PCR) Not detected (Not Detect) Stl P. shigelloides PCR Not detected (Not Detect) St Y.enterocolitica PCR Not detected (Not Detect) Stool Vibrio (PCR) Not detected (Not Detect) Stl Vibrio cholerae PCR Not detected (Not Detect) Stl Enteroaggr Ecoli PCR Not detected (Not Detect) Stl Norovirus GI/GII PCR Not detected (Not Detect) Campylobacter (PCR) Not detected (Not Detect) C. difficile Tox (PCR) Not detected (Not Detect) Salmonella (PCR) Not detected (Not Detect) MDM Narrative Medical decision making narrative: Patient's abdomen is soft has no vomiting but does feel nauseous, he has been feeling nauseous ongoing for number of weeks. He is extremely cachectic and malnourished. This is been ongoing for some time. He has been having loose stools and diarrhea we were able to send sample which is negative. He is noted to be slightly hypokalemic, likely due from diarrhea. He is now tolerating oral fluids without any problem. We discussed possible dietitian referral, oral rehydration as well. He thinks that there may be a co mponent of depression in her as well which may also be true. I recommend he discuss this with his PCP and may need to get started on medication. At this time patient does not look significantly dehydrated tolerating oral fluids abdomen remains soft no need for admission or any further testing at this time. Discharge Plan Departure Patient Disposition: Home Clinical Impression: Acute hypokalemia Diarrhea Qualifiers: Diarrhea type: unspecified type Qualified Code(s): R19.7 - Diarrhea, unspecified Discharge Date/Time: 09/18/19 15:50 Instructions: Diarrhea Activity Restrictions/Additional Instructions: *You have been diagnosed with diarrhea and low potassium *What to do: You do need to follow-up with GI. Stool sample did not show any infection at this time. *Continue to take medications as directed Zofran 4 mg every 8 hours only if needed for nausea recommend taking prior to attempting at eating Ranitidine 150 mg twice a day to help with acid in the stomach *Follow up with your primary care provider in 2-3 days *Return to ER if you should have increased weakness passing out worsening diarrhea or any new, worsening or concerning symptoms Prescriptions: New ranitidine HCl 150 mg tablet 150 mg PO BID PRN (Reason: acid reflux) Qty: 20 RF: 0 ondansetron 4 mg tablet,disintegrating 4 mg PO Q8H PRN (Reason: nausea and vomiting) Qty: 14 RF: 0 No Action Lactobacillus acidophilus [Acidophilus] Capsule 10 mg PO DAILY RF: 0 melatonin 3 mg capsule 3 mg PO BEDTIME PRNRF: 0 cephalexin [Keflex] 500 mg capsule 500 mg PO QID RF: 0 acetaminophen [Tylenol 8 Hour] 650 mg tablet extended release 650 mg PO Q8H PRN (Reason: fever or pain) RF: 0 potassium chloride 10 mEq tablet extended release 10 meq PO DAILY RF: 0 loperamide 2 mg capsule 2 mg PO Q4H PRNRF: 0 mineral oil [Fleet Mineral Oil] Enema 118 ml TN ONCE PRNRF: 0 bisacodyl 5 mg tablet 5 mg PO BEDTIME PRNRF: 0 bisacodyl [Dulcolax (bisacodyl)] 5 mg tablet,delayed release (DR/EC) 5 mg PO ONCE PRN (Reason: constipation) RF: 0 [place]ong Milk of Magnesia 311 mg tablet,chewable 311 mg PO BEDTIME PRNRF: 0 tamsulosin 0.4 mg Capsule 0.4 mg PO DAILY RF: 0 Myrbetriq 50 mg Tablet Extended Release 24 Hr 50 mg PO DAILY RF: 0 cyanocobalamin (vitamin B-12) 1,000 mcg/mL solution 1,000 mcg IM QMONTH RF: 0 tramadol 50 mg Tablet 50 mg PO QID PRN (Reason: Pain, Moderate (4-6)) Qty: 40 RF: 0 Referrals: Damian Tipton MD [Primary Care Provider] -
[2019-09-18 12:12] VITALS: BP 124/75; PULSE 80; RESP 21; O2SAT 99
[2019-09-18 12:12] LABS: Add Manual Diff / Slide Review NO; Basophils Absolute Auto 0 /uL (0-100); Basophils Percent Auto 0.5 % (0-2); Eosinophils Absolute Auto 0 /uL (0-450); Eosinophils Percent Auto 0.3 % (2-4); Hematocrit 32.4 % (41-53); Lymphocytes Absolute Auto 1200 /uL (1100-4500); Lymphocytes Percent Auto 19.2 % (25-40); Mean Corpuscular Hemoglobin 31.2 PG (26-34); Mean Corpuscular Volume 91.8 fL (80-100); Monocytes Absolute Auto 600 /uL (0-900); Monocytes Percent Auto 9.9 % (3-14); Neutrophils Absolute Auto 4400 /uL (1500-7000); Neutrophils Percent Auto 70.1 % (50-75); Platelet Count 384 X10^3/uL (150-400); Red Blood Cell Count 3.53 X10^6/uL (4.5-5.9); Red Cell Distribution Width 15.7 % (11.6-14.8); White Blood Cell Count 6.3 X10^3/uL (4.5-11.0)
[2019-09-18 12:31] LABS: Alanine Aminotransferase 8 IU/L (<50); Albumin 2.7 g/dL (3.5-5.0); Albumin Globulin Ratio 1.1 (1.0-2.8); Alkaline Phosphatase 56 U/L (38-126); Aspartate Aminotransferase 25 IU/L (17-59); Bilirubin Total 0.9 mg/dL (0.2-1.3); Blood Urea Nitrogen 20 mg/dL (9-20); Calcium 7.8 mg/dL (8.4-10.2); Carbon Dioxide 23 mmol/L (22-32); Chloride 100 mmol/L (98-107); Estimated Glomerular Filt Rate > 60.0 mL/min (>60); Globulin 2.5 g/dL (1.7-4.1); Glucose 75 mg/dL (80-110); HEMOLYSIS < 15 (0-50); Lactate (Lactic Acid) 0.9 mmol/L (0.7-2.1); Potassium 2.8 mmol/L (3.4-5.1); Sodium 135 mmol/L (137-145); Total Protein 5.2 g/dL (6.3-8.2)
[2019-09-18 12:35] LABS: Lipase < 10 U/L (23-300)
[2019-09-18 13:00] VITALS: BP 121/73; PULSE 77; RESP 23; O2SAT 98
[2019-09-18 13:33] VITALS: BP 121/71; PULSE 81; RESP 30; O2SAT 98
[2019-09-18 14:01] LABS: Adenovirus F 40/41 Not Detected (Not Detect); Astrovirus Not Detected (Not Detect); Campylobacter Not Detected (Not Detect); Clostridium difficile toxin AB Not Detected (Not Detect); Cryptosporidium Not Detected (Not Detect); Cyclospora cayetanensis Not Detected (Not Detect); Entamoeba histolytica Not Detected (Not Detect); Enteroaggregative E.coli Not Detected (Not Detect); Enteropathogenic E.coli Not Detected (Not Detect); Enterotoxigenic E.coli It/st Not Detected (Not Detect); Giardia lamblia Not Detected (Not Detect); Norovirus GI/GII Not Detected (Not Detect); Plesiomonsa shigelloides Not Detected (Not Detect); Rotavirus A Not Detected (Not Detect); Salmonella Not Detected (Not Detect); Sapovirus Not Detected (Not Detect); Shiga-like toxin-prod E.coli Not Detected (Not Detect); Shigella/Enteroinvasive E.coli Not Detected (Not Detect); Vibrio Not Detected (Not Detect); Vibrio cholerae Not Detected (Not Detect); Yersinia enterocolitica Not Detected (Not Detect)
[2019-09-18] MEDS: POTASSIUM CHLORIDE 20 MEQ TAB 40 MEQ PO (14:25)
[2019-09-18] MEDS: PANTOPRAZOLE 40 MG VIAL IV (14:26)
[2019-09-18] MEDS: ONDANSETRON 4 MG/2 ML INJ IV (14:26)
[2019-09-18 14:46] VITALS: BP 116/72; PULSE 71; O2SAT 100
--- NOTE | 2019-09-18 15:05 | PC.NURSE ---
Patient's 0.9% NaCl 1L was bolused in per Dr. Hazel.
[2019-09-18 15:46] VITALS: BP 122/77; PULSE 80; RESP 24; O2SAT 98
== END 2019-09-18 15:50 | disposition home or self-care (01) ==
PROVIDERS: Emergency Provider Emergency Medicine; PCP Internal Medicine
DX: E87.6 Hypokalemia (principal); R19.7 Diarrhea, unspecified
CPT/HCPCS: 36415; 80053; 83605; 83690; 85025; 87507; 96361; 96374; 96375; 99283; 99284; C9113; J2405

== ENCOUNTER 2019-10-19 12:24 | Inpatient (IN) | payer MEDICARE, OTHER, SELFPAY ==
[2019-07-23 09:39] VITALS: PULSE 76; RESP 14; O2SAT 95
[2019-07-24 10:23] VITALS: BMI 20.8
[2019-10-19] VITALS (7 sets, daily range): BP systolic 100–158; BP diastolic 64–81; PULSE 82–99; RESP 16–22; TEMP 36.4–37.1; O2SAT 96–100; BMI 15.5
[2019-10-19 13:39] LABS: Add Manual Diff / Slide Review NO; Basophils Absolute Auto 100 /uL (0-100); Basophils Percent Auto 0.3 % (0-2); Eosinophils Absolute Auto 100 /uL (0-450); Eosinophils Percent Auto 0.3 % (2-4); Hematocrit 37.9 % (41-53); Hemoglobin 12.5 g/dL (13.5-17.5); Lymphocytes Absolute Auto 1900 /uL (1100-4500); Lymphocytes Percent Auto 9.4 % (25-40); Mean Corpuscular HGB Conc 33.1 % (30-36); Mean Corpuscular Hemoglobin 30.7 PG (26-34); Mean Corpuscular Volume 92.9 fL (80-100); Monocytes Absolute Auto 1300 /uL (0-900); Monocytes Percent Auto 6.1 % (3-14); Neutrophils Absolute Auto 17300 /uL (1500-7000); Neutrophils Percent Auto 83.9 % (50-75); Platelet Count 533 X10^3/uL (150-400); Red Blood Cell Count 4.08 X10^6/uL (4.5-5.9); Red Cell Distribution Width 19.7 % (11.6-14.8); White Blood Cell Count 20.7 X10^3/uL (4.5-11.0)
[2019-10-19 13:50] LABS: INR 1.2 (0.9-1.3); Prothrombin Time 13.5 SECONDS (10.1-12.7)
[2019-10-19 13:53] LABS: PTT Partial Thromboplastin Tim 31 SECONDS (26.4-36.2)
[2019-10-19 13:54] LABS: Alanine Aminotransferase 12 IU/L (<50); Alkaline Phosphatase 110 U/L (38-126); Aspartate Aminotransferase 31 IU/L (17-59); BUN Creatinine Ratio 27.3 (6-22); Bilirubin Total 1.6 mg/dL (0.2-1.3); Blood Urea Nitrogen 30 mg/dL (9-20); Calcium 8.4 mg/dL (8.4-10.2); Carbon Dioxide 26 mmol/L (22-32); Chloride 96 mmol/L (98-107); Estimated Glomerular Filt Rate > 60.0 mL/min (>60); Glucose 102 mg/dL (80-110); HEMOLYSIS 36 (0-50); Sodium 134 mmol/L (137-145)
[2019-10-19 13:55] LABS: Lipase < 10 U/L (23-300)
--- NOTE | 2019-10-19 14:20 | ED_ITS ---
HPI - Nausea/Vomiting/Diarrhea General Chief complaint: Nausea/Vomiting/Diarrhea Stated complaint: thinks he has a urinary infection,diarrhea,cdiff Time Seen by Provider: 10/19/19 13:03 Source: patient and family Mode of arrival: Ambulatory Limitations: no limitations History of Present Illness HPI Narrative: Patient comes emergency department complaining of ongoing diarrhea for the last several months with 30 lb weight last, as well as recent change in the color and consistency of his urine. Patient states that all started when he had a bowel obstruction back in late May and had to have 6 cm of his colon removed. Patient states that this was the result of prior colon cancer many years before with another bowel resection at that time and subsequent adhesions. Patient states that ever since his surgery in May and subsequent ICU stay, he has had chronic diarrhea. States that it is watery and that especially with last several days, just seems to come out at any time. The patient states that yesterday, he noticed that he had something coming out of his penis that had the same look as his stool, it was concerned that he may have a fistula. The patient has had minimal abdominal pain, though he does get some occasional low abdominal discomfort. He denies dysuria. No fevers. No back pain that is new. Patient denies any chest symptoms. He states he has really not had any appetite. He states that food occasionally sounds good, but when it comes, it seems unpalatable. The patient's states that the patient has been consuming 300-600 calories per day. She states that she has been giving him Ensure to try to keep his calorie levels up, but he continues to lose weight. The patient denies any other complaints at this time. He states he has seen both GI and his primary care physician, neither of whom have been able to come to a definitive conclusion as to why the patient continues to have diarrhea and decreased appetite. The patient was placed on an antidepressant to try to stimulate his appetite a couple of weeks ago, but he does not feel that this has really helped. He was tested for C diff some weeks ago and this was negative, but the patient states that the patient's primary care physician thought that perhaps the test result was inaccurate. He sent the patient home with another testing kit for C diff, but the patient has not been able to capture any stool when he defecates. Related Data Home Medications Medication Instructions Recorded Confirmed Myrbetriq 50 mg PO DAILY 11/11/18 10/19/19 loperamide 2 mg capsule 2 mg PO Q4H PRN 08/18/19 10/19/19 mirtazapine 7.5 mg PO DAILY 10/19/19 10/19/19 Allergies Allergy/AdvReac Type Severity Reaction Status Date / Time No Known Drug Allergies Allergy Verified 10/19/19 12:33 Review of Systems Constitutional Constitutional: Denies chills, Denies fatigue, Denies fever(s), Denies frequent falls, Denies lethargy and Denies weakness Eyes Eyes: Denies change in vision, Denies eye discharge, Denies irritation and Denies loss of vision ENT Ears, Nose, Mouth, and Throat: Denies change in voice, Denies dizziness, Denies neck pain, Denies sore throat and Denies throat swelling Cardiovascular Cardiovascular: Denies chest pain, Denies irregular heart rhythm, Denies lightheadedness, Denies palpitations, Denies dyspnea, Denies dyspnea on exertion and Denies orthopnea Respiratory Respiratory: Denies cough, Denies dyspnea, Denies dyspnea on exertion and Denies wheezing Gastrointestinal Gastrointestinal: Reports abdominal pain (Lower), Denies change in bowel habits, Reports diarrhea, Denies nausea and Denies vomiting Genitourinary Genitourinary: Denies hematuria, Denies flank pain, Denies urinary incontinence and Denies urinary urgency Musculoskeletal Musculoskeletal: Denies back pain, Denies muscle weakness, Denies neck pain, Denies numbness and Denies tingling Integumentary/Breasts Skin/Breast: Denies pruritus, Denies erythema, Denies rash and Denies wounds Neurologic Neurologic: Denies behavioral changes, Denies confusion, Denies dizziness, Denies frequent falls, Denies loss of vision, Denies numbness, Denies tingling and Denies weakness Psychiatric Psychiatric: Denies anxiety, Denies behavioral changes, Denies confusion, Denies depression, Denies homicidal ideation and Denies suicidal ideation Endocrine Endocrine: Denies fatigue, Denies flushing and Denies palpitations Hematologic/Lymphatic Hematologic/Lymphatic: Denies easy bruising Allergic/Immunologic Allergic/Immunologic: Denies urticaria, Denies throat swelling and Denies wheezing Patient History Medical History (Updated 10/19/19 @ 14:25 by Taylor Jesus MD) Aspiration into lower respiratory tract (Inactive) Colon cancer (Acute) Small bowel obstruction (Acute) Surgical History History of bowel resection (Acute) Social History household members: spouse Smoking Status: Unknown if ever smoked Smoking Status: Unknown if ever smoked alcohol intake frequency: holidays/special occasions only Substance Use Type: does not use Exam Initial Vital Signs Initial Vital Signs: Vital Signs Temperature 97.6 F 10/19/19 12:29 Pulse Rate 99 H 10/19/19 12:29 Respiratory Rate 22 10/19/19 12:29 Pulse Oximetry 98 10/19/19 12:29 Const General: cooperative and well developed Nutritional Appearance: well nourished Orientation: alert, awake, oriented x3 and not confused HENMT Head: normocephalic and atraumatic Ears: external ears normal Nose: external nose normal and No nasal discharge Face and sinus: face symmetric and No dry mucous membranes Mouth: oral mucosae normal and moist mucous membranes Teeth and gingiva: dentition normal Eyes General: appearance normal, both eyes and all related structures Eyelids: eyelids normal Conjunctivae: conjunctivae normal Sclera: sclerae normal Pupils: PERRL EOM: EOM intact bilaterally Neck Neck: normal visual inspection, trachea midline, No lymphadenopathy, No midline deformity and No JVD Lymphatic: No lymphedema Chest Chest: normal inspection of the chest Resp Effort & Inspection: normal respiratory effort, able to speak in complete sentences, no respiratory distress and no use of accessory muscles Auscultation: clear to auscultation bilaterally, no rales, no rhonchi and no wheezes Cardio Rate: regular rate Rhythm: regular rhythm Heart Sounds: no click, no gallops, no murmurs and no rubs Pulses: normal peripheral pulses GI Inspection: non-distended Palpation: soft, no hepatosplenomegaly, No guarding, No pulsatile mass and tender (Mild, bilateral lower quadrant) Back/Spine/Pelvis Back: No CVA tenderness Cervical Spine: cervical ROM normal and No pain with cervical ROM Thoracic/Lumbar Spine: thoracic and lumbar spine normal to inspection Skin General: no rashes or lesions noted, No jaundice and No petechiae Neuro General: alert, oriented x3, gait normal and no focal motor deficits Speech: speech normal Extrem General: full ROM, no clubbing, cyanosis or edema, no pedal edema and no calf tenderness Psych Appearance: well kempt Mental Status: mental status grossly normal Attitude: cooperative Thought Content: normal and suicidality Judgment: judgment good Course Course Course Narrative: Patient was worked up with labs, urinalysis, and CT scan of the abdomen pelvis. 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 Patient also appeared to have colitis with ascending colon wall thickening. His lactate and procalcitonin were normal, and the patient was hemodynamically stable in the emergency department. He was given a 1 L bolus 0.9 normal saline as well as Levaquin and Flagyl IV in the emergency department. I spoke with Dr. Wellington of General surgery, who initially felt that the patient may need urological and GI support for surgery and as such, requested that I contact another facility with these services available. The patient's case was discussed with Dr. Collin Calero of General surgery at [facility], after multiple phone calls to [facility] and conversations with their nursing cryptologic supervisor, and after pushing CT images to [facility], and he did state that he did not feel that this case required Urology and GI, and stated he would like to talk to our general surgeon himself before accepting transfer. I did speak again with Dr. Wellington and that Dr. Wellington is request, Dr. Calero was paged to his number. At this point in time, Dr. Wellington is evaluating the patient in the emergency department. The patient is signed out to Dr. Wilian Nguyen, pending final disposition. Orders Ordered: ED Orders 10/19/19 13:35 Complete Blood Count AUTO DIFF Stat Comprehensive Metabolic Panel Stat Lipase Stat Partial Thromboplastin Time Stat Procalcitonin Stat Prothrombin Time INR Stat 10/19/19 14:27 CT abdomen pelvis w con Stat 10/19/19 14:56 Blood Culture Stat 10/19/19 15:15 Lactate (Lactic Acid) Stat 10/19/19 15:39 GI Panel (Film Array) Stat 10/19/19 16:12 EKG-12 Lead Stat Sodium Chloride (Normal Saline 0.9%) 1,000 mls @ 150 mls/hr IV BOLUS ONE Stop: 10/20/19 00:12 Last Admin: 10/19/19 17:40 Dose: 150 mls/hr Documented by: JASBIR Discontinued Medications Sodium Chloride (Normal Saline 0.9%) 1,000 mls @ 1,000 mls/hr IV BOLUS ONE Stop: 10/19/19 15:26 Last Infusion: 10/19/19 15:45 Dose: 0 mls/hr Documented by: Admin: 10/19/19 14:41 Dose: 1,000 mls/hr Documented by: ESTEFANI Metronidazole (Flagyl) 500 mg in 100 mls @ 100 mls/hr IV NOW ONE Stop: 10/19/19 18:32 Last Infusion: 10/19/19 18:58 Dose: 0 mls/hr Documented by: Admin: 10/19/19 17:40 Dose: 100 mls/hr Documented by: JASBIR Levofloxacin (Levaquin) 500 mg in 100 mls @ 100 mls/hr IV NOW ONE Stop: 10/19/19 18:32 Last Infusion: 10/19/19 18:57 Dose: 0 mls/hr Documented by: Admin: 10/19/19 17:40 Dose: 100 mls/hr Documented by: JASBIR Vital Signs Vital signs: Vital Signs - 8 hr 10/19/19 12:29 10/19/19 16:00 10/19/19 16:08 Temperature 97.6 F Pulse Rate 99 H 84 90 Respiratory Rate 22 16 16 Blood Pressure [Right Arm] 124/75 123/78 Pulse Oximetry 98 98 96 10/19/19 17:30 10/19/19 18:52 Temperature Pulse Rate 83 82 Respiratory Rate 19 22 Blood Pressure [Right Arm] 135/81 100/64 Pulse Oximetry 99 98 MDM - Nausea/Vomiting/Diarrhea Medical Records Attestation: I reviewed the patient's medical records. Lab Data Attestation: I reviewed the patient's lab results. Result diagrams: 10/19/19 13:35 10/19/19 13:35 Labs: Lab Results 10/19/19 10/19/19 10/19/19 Range/Units 13:35 13:35 13:35 WBC 20.7 H (4.5-11.0) X10^3/uL RBC 4.08 L (4.5-5.9) X10^6/uL Hgb 12.5 L (13.5-17.5) g/dL Hct 37.9 L (41-53) % MCV 92.9 (80-100) fL MCH 30.7 (26-34) PG MCHC 33.1 (30-36) % RDW 19.7 H (11.6-14.8) % Plt Count 533 H (150-400) X10^3/uL Neut % (Auto) 83.9 H (50-75) % Lymph % (Auto) 9.4 L (25-40) % [place] % (Auto) 6.1 (3-14) % Eos % (Auto) 0.3 L (2-4) % Baso % (Auto) 0.3 (0-2) % Neut # (Auto) 71464 H (8004-7667) /uL Lymph # (Auto) 1900 (7822-2659) /uL [place] # (Auto) 1300 H (0-900) /uL Eos # (Auto) 100 (0-450) /uL Baso # (Auto) 100 (0-100) /uL PT 13.5 H (10.1-12.7) SECONDS INR 1.2 (0.9-1.3) APTT 31 (26.4-36.2) SECONDS Sodium 134 L (137-145) mmol/L Potassium 4.0 (3.4-5.1) mmol/L Chloride 96 L (98-107) mmol/L Carbon Dioxide 26 (22-32) mmol/L BUN 30 H (9-20) mg/dL Creatinine 1.10 (0.66-1.25) mg/dL Estimated GFR > 60.0 (>60) mL/min BUN/Creatinine Ratio 27.3 H (6-22) Glucose 102 (80-110) mg/dL Lactate (0.7-2.1) mmol/L Calcium 8.4 (8.4-10.2) mg/dL Total Bilirubin 1.6 H (0.2-1.3) mg/dL AST 31 (17-59) IU/L ALT 12 (<50) IU/L Alkaline Phosphatase 110 (38-126) U/L Total Protein 6.0 L (6.3-8.2) g/dL Albumin 3.0 L (3.5-5.0) g/dL Globulin 3.0 (1.7-4.1) g/dL Albumin/Globulin Ratio 1.0 (1.0-2.8) Lipase < 10 L (23-300) U/L Procalcitonin (<0.5) ng/mL Stl C. cayetanensis PCR (Not Detect) Stool Rotavirus (PCR) (Not Detect) Stool Adenovirus (PCR) (Not Detect) Stool Astrovirus (PCR) (Not Detect) Stool Cryptosporidium PCR (Not Detect) Stl E.coli Shiga Tox PCR (Not Detect) St Sh/Enteroin Ecoli PCR (Not Detect) Stool E coli O157 PCR (Not Detect) Stl Enterotoxigenic E PCR (Not Detect) Stool EPEC (PCR) (Not Detect) Stl E. histolytica PCR (Not Detect) Stool Giardia Lamblia PCR (Not Detect) Stool Sapovirus (PCR) (Not Detect) Stl P. shigelloides PCR (Not Detect) St Y.enterocolitica PCR (Not Detect) Stool Vibrio (PCR) (Not Detect) Stl Vibrio cholerae PCR (Not Detect) Stl Enteroaggr Ecoli PCR (Not Detect) Stl Norovirus GI/GII PCR (Not Detect) Campylobacter (PCR) (Not Detect) C. difficile Tox (PCR) (Not Detect) Salmonella (PCR) (Not Detect) 10/19/19 10/19/19 10/19/19 Range/Units 13:35 15:15 15:39 WBC (4.5-11.0) X10^3/uL RBC (4.5-5.9) X10^6/uL Hgb (13.5-17.5) g/dL Hct (41-53) % MCV (80-100) fL MCH (26-34) PG MCHC (30-36) % RDW (11.6-14.8) % Plt Count (150-400) X10^3/uL Neut % (Auto) (50-75) % Lymph % (Auto) (25-40) % [place] % (Auto) (3-14) % Eos % (Auto) (2-4) % Baso % (Auto) (0-2) % Neut # (Auto) (8665-2846) /uL Lymph # (Auto) (8199-1348) /uL [place] # (Auto) (0-900) /uL Eos # (Auto) (0-450) /uL Baso # (Auto) (0-100) /uL PT (10.1-12.7) SECONDS INR (0.9-1.3) APTT (26.4-36.2) SECONDS Sodium (137-145) mmol/L Potassium (3.4-5.1) mmol/L Chloride (98-107) mmol/L Carbon Dioxide (22-32) mmol/L BUN (9-20) mg/dL Creatinine (0.66-1.25) mg/dL Estimated GFR (>60) mL/min BUN/Creatinine Ratio (6-22) Glucose (80-110) mg/dL Lactate 1.2 (0.7-2.1) mmol/L Calcium (8.4-10.2) mg/dL Total Bilirubin (0.2-1.3) mg/dL AST (17-59) IU/L ALT (<50) IU/L Alkaline Phosphatase (38-126) U/L Total Protein (6.3-8.2) g/dL Albumin (3.5-5.0) g/dL Globulin (1.7-4.1) g/dL Albumin/Globulin Ratio (1.0-2.8) Lipase (23-300) U/L Procalcitonin 0.09 (<0.5) ng/mL Stl C. cayetanensis PCR Not detected (Not Detect) Stool Rotavirus (PCR) Not detected (Not Detect) Stool Adenovirus (PCR) Not detected (Not Detect) Stool Astrovirus (PCR) Not detected (Not Detect) Stool Cryptosporidium PCR Not detected (Not Detect) Stl E.coli Shiga Tox PCR Not detected (Not Detect) St Sh/Enteroin Ecoli PCR Not detected (Not Detect) Stool E coli O157 PCR Not detected (Not Detect) Stl Enterotoxigenic E PCR Not detected (Not Detect) Stool EPEC (PCR) Not detected (Not Detect) Stl E. histolytica PCR Not detected (Not Detect) Stool Giardia Lamblia PCR Not detected (Not Detect) Stool Sapovirus (PCR) Not detected (Not Detect) Stl P. shigelloides PCR Not detected (Not Detect) St Y.enterocolitica PCR Not detected (Not Detect) Stool Vibrio (PCR) Not detected (Not Detect) Stl Vibrio cholerae PCR Not detected (Not Detect) Stl Enteroaggr Ecoli PCR Not detected (Not Detect) Stl Norovirus GI/GII PCR Not detected (Not Detect) Campylobacter (PCR) Not detected (Not Detect) C. difficile Tox (PCR) Not detected (Not Detect) Salmonella (PCR) Not detected (Not Detect) Discharge Plan Departure Prescriptions: No Action loperamide 2 mg capsule 2 mg PO Q4H PRN (Reason: Diarrhea) RF: 0 Myrbetriq 50 mg Tablet Extended Release 24 Hr 50 mg PO DAILY RF: 0 mirtazapine 7.5 mg tablet 7.5 mg PO DAILY RF: 0
--- NOTE | 2019-10-19 14:27 | DI.CT.S_ITS ---
PROCEDURE: CT ABDOMEN PELVIS W CON INDICATIONS: urinating stool TECHNIQUE: After the administration of oral and intravenous contrast, 5 mm thick sections acquired from the diaphragms to the symphysis. 5 mm thick coronal and sagittal reformats were performed. For radiation dose reduction, the following was used: automated exposure control, adjustment of mA and/or kV according to patient size. COMPARISON: [facility], RG, CT ABDOMEN/PELVIS W/WO CONTRAST, 02/03/2001, 19:42. [facility], CT, IVP (ABD & PEL WWO CONTRAST), 06/21/2016, 10:16. [facility], CT, THORAX WITHOUT CONTRAST, 01/03/2017, 12:40. [facility], CT, THORAX WITHOUT CONTRAST, 07/02/2017, 13:15. [facility], CT, CT ABDOMEN PELVIS W CON, 07/20/2019, 15:23. FINDINGS: Image quality: Excellent. ABDOMEN: Lung bases: There is a 5 mm subpleural nodule in the right lower lobe, unchanged since 01/03/2017. There is a small left pleural effusion trace right pleural effusion. Heart size is normal. There is trace pericardial effusion. Solid organs: Liver is normal in size and enhancement. Gallbladder is distended. Biliary system is mildly dilated. Pancreas enhances normally. Spleen is normal in size and enhancement. Left adrenal nodularity and calcification appears unchanged. Kidneys are normal in size and enhancement, without hydronephrosis. Peritoneum and bowel: There is a surgical anastomosis in the area of hepatic flexure. There is diffuse thickening of the ascending colon suggesting colitis. The distal ileum also appears mildly thickened with increased mucosal enhancement. There is a large amount of stool in the distal transverse colon, descending colon and sigmoid colon. No free air. There is a trace amount of free fluid. Nodes and vessels: No retroperitoneal or mesenteric adenopathy. Aorta and inferior vena cava are normal in caliber. Miscellaneous: No ventral hernias. PELVIS: Genitourinary: The left lateral bladder wall is thickened. There is a fluid fluid level within the bladder with heterogeneous attenuation in the dependent bladder lumen, suspicious for stool content. There appears to be a fistula connection between the sigmoid colon and the bladder dome, consistent with colovesical fistula. Miscellaneous: No inguinal hernias or adenopathy. Bones: No suspicious bony lesions. No vertebral body compression fractures. IMPRESSION: 1. 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 There is an air-fluid level within the bladder with heterogeneous attenuation in the dependent bladder lumen suspicious for stool content. The left lateral bladder wall is thickened. 2. There is colonic wall thickening involving the ascending colon consistent with colitis. Postsurgical changes are noted with a surgical anastomosis in the area of hepatic flexure. 3. Mild thickening of the distal ileum an increase in mucosal enhancement, consistent with infection or inflammation. 4. A large amount of stool in distal transverse colon, descending colon and sigmoid colon. 5. Chronic mild dilation of the intrahepatic and extrahepatic biliary ducts. Please correlate with serum bilirubin. 6. Small left pleural effusion and trace right effusion. 7. Trace pericardial effusion. 8. Stable 5 mm right lower lobe lung nodule, likely benign. The result was discussed with Dr. Jesus. Dictated by: Mt Britton M.D. on 10/19/2019 at 16:20 Approved by: Mt Britton M.D. on 10/19/2019 at 17:03
[2019-10-19] MEDS: SODIUM CHLORIDE 0.9% 1,000 ML 1000 ML IV (14:41)
[2019-10-19 15:38] LABS: Lactate (Lactic Acid) 1.2 mmol/L (0.7-2.1)
[2019-10-19 16:02] LABS: Procalcitonin 0.09 ng/mL (<0.5)
[2019-10-19 17:02] LABS: Adenovirus F 40/41 Not Detected (Not Detect); Astrovirus Not Detected (Not Detect); Campylobacter Not Detected (Not Detect); Clostridium difficile toxin AB Not Detected (Not Detect); Cryptosporidium Not Detected (Not Detect); Cyclospora cayetanensis Not Detected (Not Detect); Entamoeba histolytica Not Detected (Not Detect); Enteroaggregative E.coli Not Detected (Not Detect); Enteropathogenic E.coli Not Detected (Not Detect); Enterotoxigenic E.coli It/st Not Detected (Not Detect); Giardia lamblia Not Detected (Not Detect); Norovirus GI/GII Not Detected (Not Detect); Plesiomonsa shigelloides Not Detected (Not Detect); Rotavirus A Not Detected (Not Detect); Salmonella Not Detected (Not Detect); Sapovirus Not Detected (Not Detect); Shiga-like toxin-prod E.coli Not Detected (Not Detect); Shigella/Enteroinvasive E.coli Not Detected (Not Detect); Vibrio Not Detected (Not Detect); Vibrio cholerae Not Detected (Not Detect); Yersinia enterocolitica Not Detected (Not Detect)
[2019-10-19] MEDS: levoFLOXacin 500 MG/100 ML PIGGYBACK 100 MG IV (17:40)
[2019-10-19] MEDS: SODIUM CHLORIDE 0.9% 1,000 ML 150 ML IV (17:40)
[2019-10-19] MEDS: metroNIDAZOLE 500 MG/100 ML PIGGYBACK 100 MG IV ×2 (17:40→22:24)
--- NOTE | 2019-10-19 18:15 | PC.NURSE ---
large area of blancheable erythema visible over sacrum, possible healed pressure ulcer.
[2019-10-19] MEDS: LIDOCAINE 2% (UROJET) 5 ML GEL TOP (19:26)
--- NOTE | 2019-10-19 19:39 | P.HP_ITS ---
History of Present Illness History of Present Illness Date Patient Seen: 10/19/19 Time Patient Seen: 19:30 Chief complaint: thinks he has a urinary infection,diarrhea,cdiff Narrative: The patient is a 78-year-old who has history of small-bowel resection for a adhesive small bowel obstruction in June. Since that time he states he has not felt well. He has had a lot of nausea and diarrhea. He has lost 30 lb. He was in the emergency room at the end of last month and stool was tested but no pathogens were found to explain his chronic diarrhea. He had an attempt at colonoscopy in May he states in his thinks it's been longer than that perhaps a year more but the colonoscopy was incomplete due to adhesions presumptively from his prior colon resection for cancer. He is uncertain what part of his colon was removed for the malignancy. Those of the only 2 operations he has had on his abdomen. He has been tolerating p.o. but eating the next to nothing. He has steadily declined and has been miserable. Two days ago for the 1st time he noticed what appeared to be stool material coming out of his penis when he urinated. Patient History Medical History Aspiration into lower respiratory tract (Inactive) Colon cancer (Acute) Small bowel obstruction (Acute) Surgical History History of bowel resection (Acute) Family & Social History Social History: household members spouse Safety & Behavioral: Feels Safe in Current Yes Environment Been Physically Hurt or No Threatened By a Person Tobacco & Substance use: Smoking Status smoked briefly many years ago alcohol intake frequency holiday/special occasion Substance Use Type does not use Meds Home Medications and Allergies Home Medications Medication Instructions Recorded Confirmed Type Myrbetriq 50 mg PO DAILY 11/11/18 10/19/19 History loperamide 2 mg capsule 2 mg PO Q4H PRN 08/18/19 10/19/19 History mirtazapine 7.5 mg PO DAILY 10/19/19 10/19/19 History Allergies Allergy/AdvReac Type Severity Reaction Status Date / Time No Known Drug Allergies Allergy Verified 10/19/19 12:33 Review of Systems Review of Systems Narrative: Patient denies visual difficulties, tooth ache or sore throat. He has trouble swallowing large pills but otherwise swallows fine. No breathing issues asthma cough cold. Patient denies any heart problems or chest pain. No black or bloody bowel movements. No hematemesis. Had been having no problems urinating until 2 days ago when he noticed what appeared to be fee can't material coming out of his penis. No seizures or blackouts. No problems with this thyroid pancreas he is aware of. Exam Vital Signs (past 8 hours): - 10/19/19 12:29 10/19/19 16:00 10/19/19 16:08 Temperature 97.6 F Pulse Rate 99 H 84 90 Respiratory Rate 22 16 16 Blood Pressure [Right Arm] 124/75 123/78 Pulse Oximetry 98 98 96 10/19/19 17:30 10/19/19 18:52 Temperature Pulse Rate 83 82 Respiratory Rate 19 22 Blood Pressure [Right Arm] 135/81 100/64 Pulse Oximetry 99 98 Oxygen Delivery Method Room Air Narrative Exam Narrative: Kicked hectic mac aided gentleman with severe protein calorie malnutrition in no distress. He denies any pain. His eyes are sunken and his eyelids are swollen. No evidence of icterus. Ears are without lesion. Nasal septum is midline. Oral mucosa is red and dry. There are no open lesions. Teeth are yellowed with age and worn down on. His neck lacks any fat and has very little muscle. There are no masses or nodes felt in the neck or supraclavicular areas. His trachea is midline mobile. No tenderness. His lungs are clear to auscultation without rales or rhonchi. Hyper resonant to percussion. Spaces between his ribs are obvious due to his malnutrition. Heart regular rate and rhythm without murmur gallop. No bruit in the neck. His abdomen is distended but soft. There is no tenderness anywhere. Midline scar is noted and his intact. No hernias appreciated. Melara is in place in his penis both lower extremities are edematous with significant pitting edema. No open lesions. 2+ dorsalis pedis pulses. Objective Imaging CT scan - abdomen: My impression: Patient has a markedly distended colon that is filled with stool for the most part at least on the left side there is air in the right. His gallbladder is distended and there appears to be some edema in the wall. I don't see any stones. He has inflammation adjacent to his left side of his bladder involving his colon and there is a huge amount of stool that appears to be within his bladder. The rectum is normal in size but the colon of the distal sigmoid appears to be collapsed. The ureter on the left is not dilated Labs Result Diagrams: 10/19/19 13:35 10/19/19 13:35 Labs: Laboratory Results - last 24 hr 10/19/19 10/19/19 10/19/19 13:35 13:35 13:35 WBC 20.7 H RBC 4.08 L Hgb 12.5 L Hct 37.9 L MCV 92.9 MCH 30.7 MCHC 33.1 RDW 19.7 H Plt Count 533 H Neut % (Auto) 83.9 H Lymph % (Auto) 9.4 L Toombs % (Auto) 6.1 Eos % (Auto) 0.3 L Baso % (Auto) 0.3 Neut # (Auto) 27911 H Lymph # (Auto) 1900 Toombs # (Auto) 1300 H Eos # (Auto) 100 Baso # (Auto) 100 PT 13.5 H INR 1.2 APTT 31 Sodium 134 L Potassium 4.0 Chloride 96 L Carbon Dioxide 26 BUN 30 H Creatinine 1.10 Estimated GFR > 60.0 BUN/Creatinine Ratio 27.3 H Glucose 102 Lactate Calcium 8.4 Total Bilirubin 1.6 H AST 31 ALT 12 Alkaline Phosphatase 110 Total Protein 6.0 L Albumin 3.0 L Globulin 3.0 Albumin/Globulin Ratio 1.0 Lipase < 10 L Procalcitonin Stl C. cayetanensis PCR Stool Rotavirus (PCR) Stool Adenovirus (PCR) Stool Astrovirus (PCR) Stool Cryptosporidium PCR Stl E.coli Shiga Tox PCR St Sh/Enteroin Ecoli PCR Stool E coli O157 PCR Stl Enterotoxigenic E PCR Stool EPEC (PCR) Stl E. histolytica PCR Stool Giardia Lamblia PCR Stool Sapovirus (PCR) Stl P. shigelloides PCR St Y.enterocolitica PCR Stool Vibrio (PCR) Stl Vibrio cholerae PCR Stl Enteroaggr Ecoli PCR Stl Norovirus GI/GII PCR Campylobacter (PCR) C. difficile Tox (PCR) Salmonella (PCR) 10/19/19 10/19/19 10/19/19 13:35 15:15 15:39 WBC RBC Hgb Hct MCV MCH MCHC RDW Plt Count Neut % (Auto) Lymph % (Auto) Toombs % (Auto) Eos % (Auto) Baso % (Auto) Neut # (Auto) Lymph # (Auto) Toombs # (Auto) Eos # (Auto) Baso # (Auto) PT INR APTT Sodium Potassium Chloride Carbon Dioxide BUN Creatinine Estimated GFR BUN/Creatinine Ratio Glucose Lactate 1.2 Calcium Total Bilirubin AST ALT Alkaline Phosphatase Total Protein Albumin Globulin Albumin/Globulin Ratio Lipase Procalcitonin 0.09 Stl C. cayetanensis PCR Not detected Stool Rotavirus (PCR) Not detected Stool Adenovirus (PCR) Not detected Stool Astrovirus (PCR) Not detected Stool Cryptosporidium PCR Not detected Stl E.coli Shiga Tox PCR Not detected St Sh/Enteroin Ecoli PCR Not detected Stool E coli O157 PCR Not detected Stl Enterotoxigenic E PCR Not detected Stool EPEC (PCR) Not detected Stl E. histolytica PCR Not detected Stool Giardia Lamblia PCR Not detected Stool Sapovirus (PCR) Not detected Stl P. shigelloides PCR Not detected St Y.enterocolitica PCR Not detected Stool Vibrio (PCR) Not detected Stl Vibrio cholerae PCR Not detected Stl Enteroaggr Ecoli PCR Not detected Stl Norovirus GI/GII PCR Not detected Campylobacter (PCR) Not detected C. difficile Tox (PCR) Not detected Salmonella (PCR) Not detected Assessment & Plan Assessment & Plan narrative: I had a very nathaly discussion with the patient. I explained to him that he would need an operation to separate his colon from his bladder and he would end up with a colostomy. He has initial reaction to that was no. That is he was not willing to do that. We continued our conversation with his in later with his daughter. His asked what his quality of life would be like if we proceeded with the operation his he has been miserable for months. I had to honestly tell her that I'm not certain it would be any better. He would have a colostomy he, he would probably end up in a residential as he certainly had the last time he was here and he is in much worse shape now that he was then. I did not know if his appetite would be improved and I did not know how well he would recover from the operation if he recovered at all. He is quite ill and quite weak and I still don't know the source of his chronic diarrhea though I suspect that he has stricture or a tumor causing a partial obstruction of his colon.(in October of 2015 the patient had a c olonoscopy attempt. The label fuser tender was able to reach the hepatic flexure ultimately using an endoscope. He dilated the stricture area from 10- 18 cm according to his note. I suspect that has restrictured causing obstruction which has been relieved through his bladder.) While a permanent ostomy would relieve this issue given his overall condition he may not really recover fully and I had to be quite honest with them about that. He would like to think about things but at this time he would like comfort care only. After discussion with he and his they did agree to IV antibiotics at least temporarily and agreed to allow me to irrigate out his bladder from stool. The understand that infection will be the cause of his demise and I am uncertain how long that might take. I will hydrate him which should help in feel little better. We will stop his various medications at this time. His is agreeable to taking it was home with hospice but for now we will admit him until all of that can be arranged.
[2019-10-19] MEDS: MAGNESIUM SULFATE 2 GM, FOLIC ACID 1 MG, THIAMINE 100 MG, MULTIVITAMIN 10 ML in SODIUM ... IV (21:04)
[2019-10-19] MEDS: CEFTRIAXONE 1 GM/50 ML FROZ.PIGGY IV (22:24)
--- NOTE | 2019-10-19 22:44 | PC.NURSE ---
Addendum entered by Sophia Alfred R.N. 10/19/19 22:49: Also noted was a small amount of blood from urethra. ER nurse said they had initially put in a 2-way underwood and then replaced it with a 3-way catheter so I believe the blood is probably from trauma of inserting a underwood twice. Original Note: Patient arrived from ER by stretcher with NS bolus running. Patient made comfortable and changed. Oriented patient and family to room. Dr. Wellington came by to talk to patient and told us he wanted the underwood irrigated continuously until clear with warm saline. Saline irrigation was hung. Patient was cleaned of fecal incontinence and skin assessment was done. Patient wishes to be called Donny. He complains of being very cold all of the time and has numerous warm blankets on him. Says he does not want another major surgery and is prepared to in the next week or so. Patient says he is relieved that he doesn't have to try to get better anymore. Bed alarm is on, call light within reach.
[2019-10-20] VITALS (7 sets, daily range): BP systolic 102–126; BP diastolic 60–82; PULSE 73–90; RESP 16–20; TEMP 36.3–37.4; O2SAT 92–100
--- NOTE | 2019-10-20 02:55 | PC.NURSE ---
0000 Pt's. bed linens soaked all the way under the mattress. Sangeetha-care & skin care done & within 3-5 minutes he soaked the beddings again. Total bed changed x3 within 30 mins. Spent over 1hr. & 50 mins. trying to keep him dry. Total stool inc. since beginning of this shift until 0318 x12. Manual irrigated underwood catheter x3 & aspirated fecal fluids. 3rd bag of warm NS irrigant hung & underwood catheter still draining fecal urine. Will apply barrier cream to skin in every inc. of stool. Denies any pain or nausea, will cont. POC & monitor.
--- NOTE | 2019-10-20 03:47 | PC.NURSE ---
Underwood Catheter drainage clearing, slow down irrigation. Inc. of medium size clear fluid, emptied 1475 cc in his underwood. Barrier cream applied to his leeann-anal area skin intact but erythema noted. Declined to turn side to side, requested to let him sleep supine. Will monitor.
[2019-10-20] MEDS: metroNIDAZOLE 500 MG/100 ML PIGGYBACK 100 MG IV ×3 (05:27→21:36)
[2019-10-20] MEDS: DEXTROSE 5%-LACTATED RINGERS 1,000 ML 100 ML IV ×2 (06:23→18:13)
--- NOTE | 2019-10-20 07:10 | PC.NURSE ---
0638 Unable to note accurate I & O pt. was incontinent X16 of liquid stools.
--- NOTE | 2019-10-20 09:56 | PC.NURSE ---
Addendum entered by Connie Bennett R.N. 10/20/19 14:11: GI//INTEG - incont brown sediment, liq stool from meatus and rectum, skin is pink, cleaned with warm soapy water, dried and applied barrier cream, vaseline around meatus, repositioned w/heels floated, added heel protectors, manual flush to maintain flowing irrigant/urine/liq stool into underwood bag. Addendum entered by Connie Bennett R.N. 10/20/19 12:00: GI/ - repeated normal saline flushes to make sure underwood flowing after incont, some brown sediment in tubing and with flush, irrigant of ns at intermittant drip, pericare and barrier cream applied, repositioned. Original Note: AM NOTE - at bedside shift report, noted to have normal saline irrigant at intermittent drip, brown sediment in underwood tubing and small qty brown in underwood bag, pt is incont large liq pale light brown/yellow fluid, pericare performed, underwood flushed w/ns 30ml now and no blockage noted, pt scrotal area reddened, barrier cream, some tenderness around meatus, cleaned and vaseline applied, reddened coccyx, cleaned and barrier cream applied, placed waffle cushion under and repositioned, blanchable redness r heel noted and heels floated, denies abd pain, poor appetite, denies nausea, appears tired, pale, repositioned for comfort.
[2019-10-20] MEDS: CEFTRIAXONE 1 GM/50 ML FROZ.PIGGY IV ×2 (10:56→21:06)
--- NOTE | 2019-10-20 11:05 | CM.DANOTE ---
Addendum entered by CHUCK Gore 10/20/19 14:04: ADD: Per , had bedside discussion with pt and spouse and plan of likely discontinuing IV-Abx and fluids tomorrow and MD updated them that pt likely will not be imminent enough to here at the hospital. SW met bedside with spouse, Dtr, and son and explained role and they confirmed that they are aware that pt likely will not pass away here at the hospital. SW confirmed that they are agreeable with Hospice Info Visit for likely tomorrow and all will be bedside for that discussion. SW talked about Hospice in the home vs a facility and spouse strongly stated that she would use SNF or facility as a last resort and would prefer pt to be home with Hospice over a facility. SW discussed that Hospice does not provide / and that majority of care is on the family and/or private pay caregivers and provided the list of [employer] agencies and spouse plans to call [facility] (since they have been working with the pt) and inquire about their caregiver program. SW discussed that [facility] would only cover up to 5 days at SNF [facility] [address] and then the room and board expense and spouse would rather use that money towards in home caregivers. SW confirmed that pt has completed POLST form prior to this admit and also has DPOA pwk completed and spouse will try to get a copy to the hospital for pt's chart. SW discussed that pt is currently alert and oriented but likely will at some point not be able to make his own decisions and will be good to have copy of that pwk. SW called [facility] admissions phone and left msg regarding request to review pt towards possible back up need of SNF [facility] [address] if pt is not safe for d/c home with Hospice. Plan: SW to follow in the morning with [facility] to confirm they can complete Info Visit tomorrow () and ongoing discussion with family to determine d/c plan of home with Hospice vs SNF [facility] [address]. SW to follow to determine if family decides to stop IV-Abx and fluids tomorrow as well. CHUCK Gore Original Note: Patient is a 78 year old male who was admitted on 10/19/19 for Diarrhea, possible UTI or CDiff. Pt has [facility] and [employer] for insurance and his PCP is Dr. Damian iTpton. EMR was reviewed. Per Surgeon, nathaly and long discussion with pt who has fistula and LBO and not the best candidate for surgical intervention and pt declining surgery and requesting [facility] and aware that he will from this dx. Per Surgeon, pt currently on IV-Abx for infection risk from stool in his bladder and other areas of his body and pt being hydrated and agreeable with irrigation of stool from bladder. Per RN, pt has continued to have copious bowel movements but does not appear to be in pain and is alert and oriented. SW met bedside with pt, spouse Carson, and granddaughter and explained role and pt confirms that he lives at home in [place] with his spouse and has local supportive family. Pt was recently admitted to [facility] and had surgery and NG tube and was discharged to [facility] SNF rehab prior to safely going home in August. Pt states that he is waiting for MD to round today to discuss how long it would take for him to if all his meds were discontinued and if MD could speed the dying process up by administering any medication. SW discussed that the hospital can only remove medications and interventions but cannot supply medications for physician assisted suicide and pt acknowledged understanding. Pt states that he does not wish to d/c home with family as he feels he would be too much care, especially with the multiple bowel movements, and his wish is to in the hospital. SW briefly discussed that MD may be able to provide a general timeline for expected if pt chooses to remove all life sustaining medications and interventions but that it can be very individual and hard to predict and possible need to go to SNF under [facility] if home is not an option and pt is not imminent. Pt hopeful to get a better sense after discussion with MD today. ALEJANDRO called [facility] and requested call back to get a sense of their availability in case pt d/c to home or SNF pending his needs. ALEJANDRO called [facility] and spoke to Darcy and provided clinical information and then faxed referral for possible Hospice Info Visit with pt and family tomorrow (as today is [place] and no info visits available today) if family is agreeable. Plan: SW to follow closely after MD rounds and further discussion with pt and family to determine if Abx and other interventions will be discontinued to determine if pt is imminent and to here at the hospital or if SNF vs Home on Hospice is needed. Laurence Richey, AUTO BODY CUSTOMIZER Discharge Planning/Care Management CM Discharge Assessment Start: 10/20/19 10:52 Freq: Status: Active Protocol: Document 10/20/19 10:52 BF (Rec: 10/20/19 11:05 BF [id number]) Discharge Planning Assessment Assigned Audit Analyst CHUCK Dang Advance Directives? Yes History Provided By Patient,Family Member,Medical Record Has Patient been admitted in last 30 No days? Comment Last discharged from [place] in Jul 2019 to [facility] SNF Prior Living Arrangements House Household Members spouse Type of transporation used prior to Drives own vehicle admit Independent with ADL's Yes Is patient alert and oriented? Yes Needs Assistance With Managing Medications,Home Chores / Shopping Caregiver for Another No Community Services used prior to Physical Therapy admission: DME Already Rented / Owned Bath Bench,FWW / Walker Comment here vs SNF [facility] [address] Discharge Plan Pt expected to in Hospital Transportation Arrangement Facility vs here Whiteboard Updated in Patient Room with Yes name and ext. # of Audit Analyst Review Status In Process Please Provide Date Initial DC 10/20/19 Assessment Was Performed Next Review Type Continued Stay Review
--- NOTE | 2019-10-20 12:53 | PM.PN.1 ---
Subjective Subjective Date Patient Seen: 10/20/19 Time Patient Seen: 12:53 Interval history: Patient feeling better this morning than he did last night. Last night he said he felt miserable. Today's feeling much more comfortable. Said he had a pretty needle off night last night with diarrhea all night but the nurses have been wonderful. No breathing issues. No abdominal pain. Exam Vital Signs (past 8 hours): - 10/20/19 05:46 10/20/19 07:30 10/20/19 11:19 Temperature 98.1 F 97.6 F 97.4 F L Pulse Rate 76 73 74 Respiratory Rate 20 18 18 Blood Pressure 116/67 102/64 103/60 Pulse Oximetry 92 94 100 Oxygen Delivery Method Room Air Oxygen Flow Rate 0 Narrative Exam Narrative: Lungs are clear to auscultation. No rales or rhonchi. Heart regular rate and rhythm without murmur gallop. Abdomen is distended soft nontender. Objective Labs Result Diagrams: 10/19/19 13:35 10/19/19 13:35 Labs: Laboratory Results - last 24 hr 10/19/19 10/19/19 10/19/19 13:35 13:35 13:35 WBC 20.7 H RBC 4.08 L Hgb 12.5 L Hct 37.9 L MCV 92.9 MCH 30.7 MCHC 33.1 RDW 19.7 H Plt Count 533 H Neut % (Auto) 83.9 H Lymph % (Auto) 9.4 L [place] % (Auto) 6.1 Eos % (Auto) 0.3 L Baso % (Auto) 0.3 Neut # (Auto) 06208 H Lymph # (Auto) 1900 [place] # (Auto) 1300 H Eos # (Auto) 100 Baso # (Auto) 100 PT 13.5 H INR 1.2 APTT 31 Sodium 134 L Potassium 4.0 Chloride 96 L Carbon Dioxide 26 BUN 30 H Creatinine 1.10 Estimated GFR > 60.0 BUN/Creatinine Ratio 27.3 H Glucose 102 Lactate Calcium 8.4 Total Bilirubin 1.6 H AST 31 ALT 12 Alkaline Phosphatase 110 Total Protein 6.0 L Albumin 3.0 L Globulin 3.0 Albumin/Globulin Ratio 1.0 Lipase < 10 L Procalcitonin Stl C. cayetanensis PCR Stool Rotavirus (PCR) Stool Adenovirus (PCR) Stool Astrovirus (PCR) Stool Cryptosporidium PCR Stl E.coli Shiga Tox PCR St Sh/Enteroin Ecoli PCR Stool E coli O157 PCR Stl Enterotoxigenic E PCR Stool EPEC (PCR) Stl E. histolytica PCR Stool Giardia Lamblia PCR Stool Sapovirus (PCR) Stl P. shigelloides PCR St Y.enterocolitica PCR Stool Vibrio (PCR) Stl Vibrio cholerae PCR Stl Enteroaggr Ecoli PCR Stl Norovirus GI/GII PCR Campylobacter (PCR) C. difficile Tox (PCR) Salmonella (PCR) 10/19/19 10/19/19 10/19/19 13:35 15:15 15:39 WBC RBC Hgb Hct MCV MCH MCHC RDW Plt Count Neut % (Auto) Lymph % (Auto) [place] % (Auto) Eos % (Auto) Baso % (Auto) Neut # (Auto) Lymph # (Auto) [place] # (Auto) Eos # (Auto) Baso # (Auto) PT INR APTT Sodium Potassium Chloride Carbon Dioxide BUN Creatinine Estimated GFR BUN/Creatinine Ratio Glucose Lactate 1.2 Calcium Total Bilirubin AST ALT Alkaline Phosphatase Total Protein Albumin Globulin Albumin/Globulin Ratio Lipase Procalcitonin 0.09 Stl C. cayetanensis PCR Not detected Stool Rotavirus (PCR) Not detected Stool Adenovirus (PCR) Not detected Stool Astrovirus (PCR) Not detected Stool Cryptosporidium PCR Not detected Stl E.coli Shiga Tox PCR Not detected St Sh/Enteroin Ecoli PCR Not detected Stool E coli O157 PCR Not detected Stl Enterotoxigenic E PCR Not detected Stool EPEC (PCR) Not detected Stl E. histolytica PCR Not detected Stool Giardia Lamblia PCR Not detected Stool Sapovirus (PCR) Not detected Stl P. shigelloides PCR Not detected St Y.enterocolitica PCR Not detected Stool Vibrio (PCR) Not detected Stl Vibrio cholerae PCR Not detected Stl Enteroaggr Ecoli PCR Not detected Stl Norovirus GI/GII PCR Not detected Campylobacter (PCR) Not detected C. difficile Tox (PCR) Not detected Salmonella (PCR) Not detected Assessment & Plan Assessment & Plan narrative: 1. Colovesical fistula. Continue bladder irrigation periodically. This is just to keep his bladder from massively distending should his urethra become clogged with particulate stool. This would only lead to a great deal of discomfort on the patient's part. 2. Chronic diarrhea. 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 The narrowing is only allowing liquid stool through. I have removed all of the medication that with slow his transit as relief of the large amount of stool proximal would benefit him as well as reduce soiling in his bladder. Under other circumstances I would consider dilating the stricture. However, without an operation and diversion this would not result in any change in his clinical course overall and may result in perforation and significant amount of pain. 3. Nausea and cachexia patient really cannot tolerate p.o. solid food. He is receiving liquids as it should not increase his stool burden and he can have clear ensure as a protein calorie source though frankly he is not hungry and because he has declined surgical intervention his condition is ultimately fatal. Therefore I would not begin TPN on this patient. 4. Bladder infection with elevated white blood cell count secondary to colovesical fistula. Presently I a.m. treating his infection at the request of the family with no hopes really of clearing the infection but rather potentially slowing its progress. Family has requested this but have decided they will probably want to stop it tomorrow. They will give it further consideration. 5. Decision not to operate and relieve partial obstruction and colovesical fistula means that ultimately the patient will probably become septic and . They are in complete understanding of that. I discussed with them the issue with his stricture but he really does not want to proceed with an operation given his overall circumstance and his age. The patient expressed a desire to stay in the hospital until his demise however I'm not certain when that will be and if that is possible. In the interim we will arrange hospice and the needed things at home so that he can be discharged. Should he prior to those arrangements being made and those interventions will obviously not be necessary. I discussed with him pain medication at home should he develop pain. I explained that there are medications that are transdermal as well as injectables that can be given in the subcu. He also is able to take p.o. as well.
--- NOTE | 2019-10-20 17:02 | PC.NURSE ---
Addendum entered by Shannen Bradley R.N. 10/20/19 22:48: Patient has denied any abd or bladder discomfort. Addendum entered by Shannen Bradley R.N. 10/20/19 21:46: still no out put in underwood, patient changed 6 times of watery stool, small to med in size. at times incontinence just looks like brown water. Addendum entered by Shannen Bradley R.N. 10/20/19 19:58: Patient resting in bed, turned for comfort. Changed multiple times d/t incontinence of stool and urine via rectum. Patient able to call for assistance. Addendum entered by Shannen Bradley R.N. 10/20/19 17:34: Spoke with about no flow back into underwood. Order at this time is to stop the continuos irrigation. Well continue to monitor patient at this time Original Note: at beginning of the shift patient had slow continuos drip of irrigate going into bladder via 3 way catheter. Per day shift RN, last empty of underwood was around 1430. This RN checked on patient and underwood around 1545 and noticed no drainage in underwood catheter. Flushed underwood at that time, which had some resistance but was able to get 50ml in but no return back, flushed again and still no return of any fluid back. Patient then stated he felt wet underneath him. Cleaned patient up and then bladder scanned which showed nothing in his bladder. Flushed underwood again with 50ml and turn up the irrigate to a fast continous drip. About couple minutes later patient c/o feeling wet again under his bottom. And no return flow in underwood but there was some light brown drainage that is coming out through his meatus. Stopped irrigate at this time d/t patient having incontinence through rectum 4 times in an hour. Paged x2, waiting for a response.
--- NOTE | 2019-10-20 18:06 | PM.CHAP ---
Staff referral. Met with Pt and son, Steve. Pt shared his desire not to undergo further difficult treatment and instead begin hospice. Son was supportive of this decision. Pt expressed desire for a residential hospice plan but appeared open to other options. 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 He expects good support from both family and taoist community. Brandon Lopez [phone]
--- NOTE | 2019-10-20 23:39 | PC.NURSE ---
Pt's. son Steve requested to let his dad sleep. Checked his brief dry & clean at this time. Pt. is sound asleep, will monitor.
[2019-10-21 02:21] VITALS: BP 126/68; PULSE 90; RESP 16; TEMP 37.6; O2SAT 99
[2019-10-21] MEDS: metroNIDAZOLE 500 MG/100 ML PIGGYBACK 100 MG IV (05:30)
[2019-10-21] MEDS: DEXTROSE 5%-LACTATED RINGERS 1,000 ML 100 ML IV ×2 (05:32→16:40)
[2019-10-21 06:14] VITALS: BP 109/67; PULSE 86; RESP 16; TEMP 37.4; O2SAT 99
[2019-10-21 07:50] VITALS: BP 111/63; PULSE 70; RESP 17; TEMP 36.2; O2SAT 95
--- NOTE | 2019-10-21 08:25 | CM.DPC ---
Addendum entered by CHUCK Gore 10/21/19 14:49: ADD: SW attempted to check in with pt and family at 1500 regarding any further questions or if they had settled on a plan of home vs SNF but family was not bedside but still calling and working on a plan and pt had his supportive employee benefits specialist bedside and requested the time to continue meeting with his employee benefits specialist and pt was not aware what family had decided. SW called pt's spouse as she was not bedside and had to leave a message. BF Addendum entered by CHUCK Gore 10/21/19 13:54: ADD: Since family is considering [facility], SW called admissions [facility] and discussed pt situation and possible need for SNF with Hospice and he states they would be willing to review to determine if they could accept if SNF needed. ALEJANDRO faxed clinicals to [facility] to review with info that [facility] currently has an opening for 10/23/19. ALEJANDRO had also spoken to family about [facility] as Dtr lives in [place] and Dtr states she had already called and they currently do not have any openings. SW updated them that insurance would also not cover the cost of room and board at [facility] the same as at a SNF. Plan: [facility] and [facility] both reviewing in case SNF needed at d/c. Hospice and [facility] both following. SW to follow closely for family decision of home vs SNF with hospice. BF Addendum entered by CHUCK Gore 10/21/19 13:30: ADD: Hospice Info Visit complete and pt has not signed consents with [facility] yet as they are in the final stages of determining home vs SNF with Hospice and if they will be on [facility] or in [facility]. ALEJANDRO met bedside with pt, spouse, son, and Dtr and provided the [employer] with the list of in-home caregivers again and they will begin placing calls to compare the cost of 19/05 caregivers vs SNF with Hospice. ALEJANDRO also provided the SNF Choice List so that family could review the location of SNF's and encouraged them to drop in and tour if they needed to and they are considering [facility]. ALEJANDRO discussed the need for creating a plan to determine which Hospice agency will be working with the pt as currently openings are limited. SW also discussed that insurance will begin limiting the coverage they will provide to the pt in the hospital once he is not receiving treatment and is officially Comfort Care. Pt and family acknowledge understanding and will begin calling facilities and caregiver agencies pal to determine plan of home vs SNF on Hospice. SW updated both [facility] and they are awaiting family's final decision to determine which Hospice agency and start date availability. BF Original Note: DCP Hospice Planning: SW called [facility] and confirmed that they received the faxed clinicals yesterday for a new referral and Hospice SW [facility] can complete Info Visit bedside with the pt and family today at 1130 but currently the earliest that they can open the pt to service is in 4 days on Friday10/25/19. ALEJANDRO called pt's spouse Carson and updated her on the Hospice Info Visit time for today bedside and she was very appreciative and will be bedside before 1130 along with pt's son and Dtr. ALEJANDRO called [facility] and confirmed that they have one opening to start a pt to service on 10/23/19 and then no other openings until after 10/25/19. ALEJANDRO updated RN on time of Info Visit with pt and family today. Plan: SW to follow closely after Hospice Info Visit today at 1130 to determine if family would like to move forward with Hospice at d/c and if home will be a realistic option. If home with Hospice then ALEJANDRO will begin determining which Hospice agency can open pt to service the soonest. CHUCK Gore
--- NOTE | 2019-10-21 09:35 | PC.NURSE ---
Addendum entered by Connie Bennett R.N. 10/21/19 12:27: SS -family and pt met with hospice. Original Note: AM NOTE - pt easily awakens at bedside shift report and vitals, initially some confusion, responses unrelated to questions, easily clears and later states I woke up a little confused and reponses are appropriate, incont thin stool rectum, leeann care performed, abd has active bt, moderately distended, soft and no discomfort when palpated, does not have any urine flow into underwood bag, no irrigant connected, did gently flush 30cc saline manually and withdrew same amount of brown fluid w/sediment, did then have a small qty flow into underwood bag, no discomfort noted when performed, barrier cream to buttock and scrotal area, has waffle cushion under, oral care provided, wearing heel protectors and heels floated.
[2019-10-21 13:22] VITALS: BP 117/63; PULSE 77; RESP 17; TEMP 36.2; O2SAT 91
[2019-10-21 16:05] VITALS: BP 117/76; PULSE 79; RESP 20; TEMP 36.6; O2SAT 99
--- NOTE | 2019-10-21 16:52 | P.PN_ITS ---
Subjective Subjective Date Patient Seen: 10/21/19 Time Patient Seen: 16:52 Interval history: Patient having a busy day discussions regarding hospice and discharge planning of taken a lot of energy. Children are presently exploring options. is with him in the womb. Exam Vital Signs (past 8 hours): - 10/21/19 13:22 10/21/19 16:05 Temperature 97.2 F L 97.8 F Pulse Rate 77 79 Respiratory Rate 17 20 Blood Pressure 117/63 117/76 Pulse Oximetry 91 99 Oxygen Delivery Method Room Air Oxygen Flow Rate 0 Narrative Exam Narrative: Abdomen remains distended. He has some pain however in the suprapubic area. Objective Labs Result Diagrams: 10/19/19 13:35 10/19/19 13:35 Assessment & Plan Assessment & Plan narrative: There are no changes in any of his diagnoses are treatment. He continues to have a partial obstruction which will not be relieved continues to have and with leakage of urine into his colon. It seems to be a [address] He is well hydrated now since he has come here. His cachexia will not change since we are not really providing him anything but liquid nourishment which he is not taking. Is really not a candidate for TPN. The us his problems are essentially the same as yesterday. There is 1 exception and that is that his Melara doesn't seem to be functioning. He appears to be leaking fluid/bladder contents into his colon rather than it coming out the Melara. This is increasing his diarrhea up to making more uncomfortable. I will remove the Melara and see if it makes a difference. We can always reinsert it. I am not sure that it's helping at this time and probably making a more uncomfortable than anything. The patient overall looks much weaker tonight than he was yesterday. I have stopped his antibiotics now and we are awaiting hos pice and placement issues. I will begin him on a Duragesic patch to see if he develops nausea as he has he thinks been sensitive to those cancer drugs in the past. It would be important to know before his discharge. Also, it will keep him more comfortable if he is having pain now in his pelvis.
[2019-10-21 20:43] VITALS: BP 120/80; PULSE 80; RESP 19; TEMP 36.4; O2SAT 97
--- NOTE | 2019-10-21 23:36 | PC.NURSE ---
Sallie shift note: Frequent repositioning, waffle cushion in place, redness to perineum and coccyx, blanches. Barrier cream applied with pericare. Post removal of Melara Cath as ordered, patient with incontinent void. 50 ml in FC upon removal with brown sediments. Multiple incontinent voids, with smear of brown stool. Attempted to use urinal, however with pressure, leakage to rectum noted. and son at bedside providing supportive care. Fentanyl patch ordered, patient refused patch.
[2019-10-22] VITALS: BP 141/79; PULSE 75; RESP 16; TEMP 37.3; O2SAT 100
--- NOTE | 2019-10-22 01:05 | PC.NURSE ---
REEL STRIPPER note: repositioned patient by tilting the kun bed to a 9 degree angle with a waffle cushion and pillow under his coccyx
[2019-10-22] MEDS: DEXTROSE 5%-LACTATED RINGERS 1,000 ML 100 ML IV (03:01)
[2019-10-22 05:00] VITALS: BP 133/76; PULSE 74; RESP 16; TEMP 36.7; O2SAT 96
[2019-10-22 08:50] VITALS: BP 114/62; PULSE 69; RESP 16; TEMP 35.8; O2SAT 94
--- NOTE | 2019-10-22 10:03 | PC.NURSE ---
Addendum entered by Nina Guzman R.N. 10/22/19 14:59: Report called to [facility] at 1452, spoke with Danyelle RN and given pt status update. Addendum entered by Nina Guzman R.N. 10/22/19 14:19: 4x4 allevyn dressing placed over bony prominence area of sacrum, small area of skin red, blanchable, pt denies discomfort with touch. Family at bedside, pt planning to discharge to [facility] at 1545 today. Pt has had 4 loose inc small to moderate appears to be stool and 1 inc urine mixed with appears to be feces. Barrier cream applied to skin, scrotum and legs, and buttocks edematous. Original Note: Day Shift- Pt A&OX4, able to make needs known using call light. Denies pain, nausea, feeling short of breath. Pt intake water this AM with assist. Mouth moisturizer placed on pt's lips. Explained the need for repositioning pt every 2 hours to prevent skin breakdown. Pt agreeable. Pt expressed that his and son were going to tour [facility]. Pt also expresses this is a good choice to go to a facility rather than home for support for his . Spoke with Dr. Miranda at 1005, pt update given, request vital signs to be changed to Q8hr, continue IVF at this time. Pt's daughter Minerva in to visit with pt around 1000.
[2019-10-22 10:18] VITALS: BMI 18.4
--- NOTE | 2019-10-22 10:31 | PM.PN.1 ---
Subjective Subjective Date Patient Seen: 10/21/19 Time Patient Seen: 16:52 Interval history: The patient has no complaints. He denies discomfort. No acute events overnight. His family is now visiting the nursing facility that he would like to go to in the community. He is waiting their return. Exam Vital Signs (past 8 hours): - 10/22/19 05:00 10/22/19 08:50 Temperature 98.0 F 96.4 F L Pulse Rate 74 69 Respiratory Rate 16 16 Blood Pressure 133/76 114/62 Pulse Oximetry 96 94 Oxygen Delivery Method Room Air Oxygen Flow Rate 0 Narrative Exam Narrative: GENERAL: Alert, comfortable appearing. Appears stated age. Answers questions promptly and appropriately. Vital signs noted. HENT: Normocephalic, atraumatic. Hearing intact. Oral mucosa is pink and moist. EYES: Conjunctiva pink, sclera white, no periorbital swelling. CARDIOVASCULAR: Regular rate. RESPIRATORY: Non-tachypneic, breathing comfortably on room air. SKIN: Face is exposed, and is only skin evaluated. Warm, dry, soft, appropriate color for ethnicity. NEURO: Alert and Oriented X 3. No gross sensory deficits, or cognitive issues. PSYCH: Appropriate affect and mood. Objective Labs Result Diagrams: 10/19/19 13:35 10/19/19 13:35 Assessment & Plan Assessment & Plan narrative: There are no changes in any of his diagnoses are treatment. He continues to have a partial obstruction which will not be relieved continues to have and with leakage of urine into his colon. His care plan has been previously determined by the patient and Dr. Wellington. On rounding on him today he denies any changes to his intention to go to a nursing facility, and to be on hospice care. I've inquired if there is anything I can do to make him more comfortable. He says he is fine and does not need anything. Continue current care plan Follow-up once the patient and his family have decided what they would like to do Time Spent With Patient Time with patient: 15-24 minutes Quality VTE Deep Vein Thrombosis/Pulmonary Embolism Present on Admission: No
--- NOTE | 2019-10-22 10:34 | DIET.PN ---
Dietary Progress Note Assessment: 78y M admitted for diarrhea, weakness, bowel obstruction communicating colon c bladder, stool contents eliminating through urinary tract. Pt denies wanting invasive procedure electing instead to start hospice and comfort care. Pt experiencing N/D, poor appetite since June c >9% unintentional wt loss. Pt only tolerating clear liquids, refusing them mostly. Per Dr. Wellington, not good candidate for TPN. HT: 185.4cm WT: 63.5kg UBW: 70kg (>9% wt loss in 3 mo, severe) BMI: 18.5 (severe for age) MNA: 3 malnourished Ming: 13 poor skin integrity Nutrition Diagnosis: Severe Acute PCM r/t nausea and reduced appetite associated c bowel obstruction aeb >9% unintentional wt loss in 3mo (severe), BMI 18.4 (severe fore age), communicating colon and bladder, pt only able to tolerate clear liquids, <50% EERs in over 4w. Interventions: 1. Initiate comfort care diet order allowing pt nourishments as desired for comfort. 2. Pt receiving Ensure Clear tid since 10/19 Diet Order: Clear Liquids EER: 1900kcal, 95g PRO (1.5g/kg per malnutrition), 2200 mL fluids Monitoring/Evaluations: as needed
--- NOTE | 2019-10-22 11:56 | PM.CHAP ---
Patient very talkative. Feels prepared for end of life. Family has chosen care facility. Prayer and support given.
--- NOTE | 2019-10-22 13:51 | P.DS_ITS ---
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 Since that time he states he has not felt well. He has had a lot of nausea and diarrhea. He has lost 30 lb. He was in the emergency room at the end of last month and stool was tested but no pathogens were found to explain his chronic diarrhea. He had an attempt at colonoscopy in May he states in his thinks it's been longer than that perhaps a year more but the colonoscopy was incomplete due to adhesions presumptively from his prior colon resection for cancer. He is uncertain what part of his colon was removed for the malignancy. Those of the only 2 operations he has had on his abdomen. He has been tolerating p.o. but eating the next to nothing. He has steadily declined and has been miserable. Two days ago for the 1st time he noticed what appeared to be stool material coming out of his penis when he urinated. 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 He was stabilized on IV fluids and antibiotics. Discussion was undertaken between Dr. Wellington and the patient and his family. Per Dr. Wellington and the patient, the patient declined any further surgical intervention. He is aware that his condition is treatable, and that without treatment he will likely become septic, leading to . The patient and his family have determined to go to hospice care. At this point, he is hemodynamically stable, alert, and oriented. He denies pain, and is passing urine and stool from both his penis and his rectum. Status at Discharge Cognitive/behavioral status at discharge: oriented Overall status at discharge: patient is not back to baseline Time Spent with Patient Time spent: Greater than 30 minutes Exam Vital Signs (past 8 hours): - 10/22/19 08:50 Temperature 96.4 F L Pulse Rate 69 Respiratory Rate 16 Blood Pressure 114/62 Pulse Oximetry 94 Oxygen Delivery Method Room Air Oxygen Flow Rate 0 Narrative Exam Narrative: GENERAL: Alert, comfortable appearing. Appears stated age. Answers questions promptly and appropriately. Vital signs noted. HENT: Normocephalic, atraumatic. Hearing intact. Oral mucosa is pink and moist. EYES: Conjunctiva pink, sclera white, no periorbital swelling. CARDIOVASCULAR: Regular rate. Abdomen: non distended RESPIRATORY: Non-tachypneic, breathing comfortably on room air. SKIN: Face is exposed, and this is the only skin evaluated. Warm, dry, soft, appropriate color for ethnicity. NEURO: Alert and Oriented X 3. No gross sensory deficits, or cognitive issues. PSYCH: Appropriate affect and mood. Objective Labs Result Diagrams: 10/19/19 13:35 10/19/19 13:35 Discharge Plan Discharge Plan Patient Disposition: [facility] Transfer to: [facility] Discharge orders & Medications Prescriptions: New fentanyl 12 mcg/hr patch 72 hour 1 patch transdermal Q72H Qty: 5 RF: 0 Continued Myrbetriq 50 mg Tablet Extended Release 24 Hr 50 mg PO DAILY RF: 0 mirtazapine 7.5 mg tablet 7.5 mg PO DAILY RF: 0 Discontinued loperamide 2 mg capsule 2 mg PO Q4H PRN (Reason: Diarrhea) RF: 0 Follow up/Referrals: Damian Tipton MD [Primary Care Provider] - Diet/Activity/Treatments Diet: Diet as Tolerated, Regular, Full Liquid and Clear Liquid Food texture: Regular Diet comment: Patient is currently on clear liquids. May advance diet as tolerated. Activity: Activity as tolerated Discharge Data Primary Care Provider: Damian Tipton Discharges patient from system. Discharge Date/Time: 10/22/19 15:45 Quality VTE Deep Vein Thrombosis/Pulmonary Embolism Present on Admission: No
--- NOTE | 2019-10-22 14:03 | CM.DPC ---
DCP Cont: Faxed discharge packet (signed med list, PASRR and D/C order) to [facility] of [facility], Attn: Nina at fax # [phone]. Mario notified via this fax that the discharge summary will follow because MD is actively working on it. Fax confirmation scanned in. Ary Nichols, In[employer] Bus Operator
--- NOTE | 2019-10-22 17:29 | PC.NURSE ---
Assumed care of pt at 1500. Pt resting in bed with supportive family at bedside during bedside hand-off. S transport team arrived at 1530 to take pt to SNF. Report phoned in by day shift RN earlier this afternoon. IV removed. Brief changed and transferred to stretcher. Pt [facility] with [facility] transport team with all personal belongings. Pt left in stable condition.
--- NOTE | 2019-10-25 12:50 | CM.DPC ---
DCP/continued: Late Entry visit occurred on 10-22-19. Reviewed chart. Per RN, she spoke with provider and patient medically cleared to discharge home on comfort care measures. Met with patient, spouse, and family at bedside. [facility] She and family in agreement that this is where they would like patient to go with hospice. Family have chosen to use [facility] because of their vicinity to facility. Spoke with Nina on 10-22 and they are in agreement to accept today. Asked RN to contact provider for orders. Also spoke with Lorene at [facility] ph# [phone] she reports that she will see patient at [facility] on 10-23-19. Family initially hesitant to discharge today but [facility] felt comfortable with patient leaving today. SHARON for discharge signed by spouse. Asked EMERGENCY ROOM TECH/Ary to set up non-urgent BLS transport. Provider signed. No additional needs identified. P: [facility] sean [place] on Friday10-22-19 via non urgent BLS transport. CHUCK Su
== END 2019-10-22 15:45 | DRG 698 ==
LOC: ED 19:30 → AC 19:32
PROVIDERS: Emergency Medicine; Admitting Provider Specialist; Emergency Provider Emergency Medicine; PCP Internal Medicine; Visit Provider Specialist
DX: N32.1 Vesicointestinal fistula (principal); E43 Unspecified severe protein-calorie malnutrition; Z68.1 Body mass index [BMI] 19.9 or less, adult; K91.31 Postprocedural partial intestinal obstruction; R19.7 Diarrhea, unspecified; N30.90 Cystitis, unspecified without hematuria; Z85.038 Personal history of other malignant neoplasm of large intestine
CPT/HCPCS: 36415; 51701; 74177; 80053; 83605; 83690; 84145; 85025; 85610; 85730; 87040; 87507; 93005; 96361; 96365; 96368; 99222; 99232; 99238; 99284; 99285; J1956; J3475; J7121; Q9967